=== PATIENT | male | born 1980 | race African-American/Black ===

== ENCOUNTER 2025-03-04 13:56 | Outpatient (AMB) | payer BC, SELFPAY ==
--- OUTSIDE RECORDS SUMMARY | 2025-03-04 14:08 | XMS_ITS | Clinical Summary ---
Author Organization [facility] Address [address] [place] [address] Care Team Providers Care Bottle Sorter Name Role Phone Lexus Sanders MD Primary Care Provider [phone] Allergies No known active allergies Medications Medication Sig Dispensed Refills Start Date End Date Status raNITIdine HCl (ZANTAC PO) Take by mouth. 0 Active Active Problems Problem Noted Date Diagnosed Date MGUS (monoclonal gammopathy of unknown significa nce) 03/30/2024 Elevated serum protein level 03/30/2024 Chronic hepatitis B 03/30/2024 Anemia in other chronic diseases classified else where 03/30/2024 Family History Medical History Relation Name Comments Cancer Sister Relation Name Status Comments Sister Social History Tobacco Use Types Packs/Day Years Used Date Smoking Tobacco: Never Smokeless Tobacco: Never Alcohol Use Standard Drinks/Week Comments Not Currently 0 (1 standard drink = 0.6 oz pur e alcohol) Sex and Gender Information Value Date Recorded Sex Assigned at Not on file Gender Identity Not on file Sexual Orientation Not on file Job Start Date Occupation Industry Not on file Not on file Not on file Last Filed Vital Signs Vital Sign Reading Time Taken Comments Blood Pressure 105/58 06/29/2024 3:23 PM EDT Pulse 69 06/29/2024 3:23 PM EDT Temperature 36.9 ??C (98.4 ??F) 06/29/2024 3:23 PM ED T Respiratory Rate - - Oxygen Saturation 98% 06/29/2024 3:23 PM EDT Inhaled Oxygen Concentration - - Weight 87.8 kg (193 lb 9.6 oz) 06/29/2024 3:23 P M EDT Height 182.9 cm (6') 06/29/2024 3:23 PM EDT Body Mass Index 26.26 06/29/2024 3:23 PM EDT Plan of Treatment Health Maintenance Due Date Last Done Comments Hepatitis C Screening 1982 Pneumococcal Vaccine (1 of 2 - PCV) 1988 Depression Screening 1994 BMI Counseling 2000 Preventative Health Evaluation 2000 COVID-19 Vaccine (3 - Pfizer risk series) 12/29/2020 12/01/2020, 11/10/2020 Influenza Vaccine (#1) 2024 3, 07/13/2022, 06/30/2020, Additional history exists DTap / Tdap / Td (3 - Td or Tdap) 09/23/2027 09/23/2017, 01/14/2008 Hepatitis B Vaccines Completed 03/30/2024, 03/30/2024, 07/13/2009, Additional history exists RSV Ped < 20 months Aged Out No longe r eligible based on patient's age to complete this topic Care Teams Bottle Sorter Relationship Specialty Start Date End Date Lexus Sanders MD PCP - General Internal Medicine 02/14/24
--- NOTE | 2025-03-04 14:40 | MHC.OFFVIS ---
Vital Signs 03/04/25 14:41 Height 6 ft Weight 185 lb BMI 25.1 Intake Visit Reasons: DIRECTOR PUBLIC-Bilateral Knee Pain Intake Note: Fetus Gregor Martinez is age 44 was seen today for a first time visit for Bi Lateral Knee appointment. Patient stated that the Knee injury occurred in Oct and was seen by his PCP DR. Sanders.Patient stated that both knee's are in constant pain but the right knee is his main concern due to the constant sharp pain.Patient was seen for PT but stated that he Failed due to the pain. Allergies No Known Allergies [No Known Allergies*] Allergy (Unverified 03/04/25 14:49) HPI HPI DIRECTOR PUBLIC-Bilateral Knee Pain: Details: Fetus Gregor Martinez is age 44 was seen today for a first time visit for Bi Lateral Knee appointment. Patient stated that the Knee injury occurred in Oct and was seen by his PCP DR. Sanders.Patient stated that both knee's are in constant pain but the right knee is his main concern due to the constant sharp pain.Patient was seen for PT but stated that he Failed due to the pain. He has also had injections and viscosupplementation. Reading his notes from his prior orthopedic surgeon he had a tight lateral retinaculum and lateral release was recommended. He is here today because he is not sure if that will help. On further discussion he does have persistent pain that prevents him from being as active as he would like. He states the pain worsens with squatting or with repetitive stairs. He states when he went to physical therapy was doing taping of his patella it it did help but felt that he could not continue that. He had an MRI but I do not have that available to me today. Physical Exam Vital Signs: BMI result Body Mass Index 25.1 Extrem Other: On exam he has a lateral patellar tilting bilaterally. There is tenderness to palpation of the undersurface of the lateral facet of the right knee there is a moderate right knee effusion. Positive step-down test. Lateral retinaculum nontender Results Reviewed Results Reviewed: I personally reviewed relevant radiographs. 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 He has done physical therapy and had injections and a lateral release has been recommended. I had a honest discussion with him regarding treatment options. I discussed that I think a lateral releases a 50 50 procedure. It is not wrong but it does not have a great track record of ameliorating symptoms. I think if the effusion were able to be managed that my help is symptoms and to do that I recommend taping, bracing PT. I told him I would review his MRI. When I have that I will set up a telehealth visit to review that and then we can make a plan from there if he so desires. Orders: Orders XR knee RT 3V 03/04/25 M25.561 - Pain in right knee Coding Level of Care Code New Pt Level 3 (24137) Diagnoses Lateral subluxation of patella S83.013A
[2025-03-04 14:41] VITALS: BMI 25.1
== END 2025-03-04 15:05 | disposition home or self-care (01) ==
LOC: HO.HOS 13:56
PROVIDERS: PCP Internal Medicine; Visit Provider Orthopaedic Surgery
DX: S83.011A Lateral subluxation of right patella, initial encounter (principal)
CPT/HCPCS: 99203

== ENCOUNTER 2025-03-04 13:56 | Outpatient (REF) | payer BC, SELFPAY ==
--- NOTE | ~2025-03-04 | XR_ITS ---
XR KNEE LUKAS 3V HISTORY: Pain in left knee. COMPARISON: None. TECHNIQUE: AP view bilateral knees standing, lateral and patellofemoral views each knee. FINDINGS: RIGHT KNEE: No fracture, dislocation, or suspicious bone lesion. Mild joint space narrowing/osteoarthrosis annual and lateral patellofemoral compartments. The lateral compartment is preserved. Normal patellar alignment. No abnormal patellar tilt. There is a moderate to large suprapatellar joint effusion. Soft tissues appear normal. LEFT KNEE: No fracture, dislocation, or suspicious bone lesion. Mild joint space narrowing/osteoarthrosis annual and lateral patellofemoral compartments. The lateral compartment is preserved. Normal patellar alignment. No abnormal patellar tilt. No evidence of joint effusion. Soft tissues appear normal. XR/XR Knee Lukas 3V IMPRESSION: RIGHT KNEE: 1. No acute bony abnormalities. 2. Mild osteoarthrosis in the medial and patellofemoral compartments. 3. Large suprapatellar joint effusion. LEFT KNEE: 1. No acute bony abnormalities. 2. Mild osteoarthrosis in the medial and patellofemoral compartments. 3. No significant suprapatellar joint effusion. Electronically signed by: Randy Montaño MD 03/05/2025 08:25 AM EDT
== END 2025-03-04 13:57 | disposition home or self-care (01) ==
LOC: HO.HOSX 13:56
PROVIDERS: PCP Internal Medicine; Visit Provider Orthopaedic Surgery
DX: M25.562 Pain in left knee (principal); S83.012A Lateral subluxation of left patella, initial encounter
CPT/HCPCS: 73562

== ENCOUNTER → 2025-03-04 14:17 | Outpatient (BNV) | payer BC, SELFPAY | PROVIDERS: PCP Internal Medicine; Visit Provider Radiology Diagnostic Radiology | DX: M25.461 Effusion, right knee (principal) | CPT/HCPCS: 73562 ==

== ENCOUNTER 2025-03-11 14:50 | Outpatient (AMB) | payer BC, SELFPAY ==
--- NOTE | 2025-03-11 14:51 | MHC.OFFVIS ---
Intake Visit Reasons: TEL- Bilateral knee arthritis, MRI Review Intake Note: Dayne is a 44 year old male who presents today for a Telehealth Bilateral Knee Arthritis, MRI Review. Best phone number is Allergies No Known Allergies [No Known Allergies*] Allergy (Unverified 03/04/25 14:49) HPI HPI TEL- Bilateral knee arthritis, MRI Review: Details: MRI report now scanned and reviewed. he also has a large complex posterolateral meniscal root tear with prominent patellar cartilage loss. Telehealth Telehealth Telehealth Platform: Telephone Location of provider rendering services: practice address Location of patient: address on file Patient Identification confirmed using: Name, : Yes Telehealth method: voice only Patient verbally consented to treatment: Yes Patient verbally consented to billing insurance company: Yes Patient informed of any privacy concerns related to visit: Yes Minutes spent on Phone/Video with Pt.: 10 Results Reviewed Results Reviewed: I personally reviewed the MR images. There is loss of PF cartialge and lateral posterior root tear Assessment & Plan Assessment & Plan (1) Lateral subluxation of patella: Code(s): S83.013A - Lateral subluxation of unspecified patella, initial encounter Category: Medical Plan: Recurrent/persistent knee effusion limiting quad strength and causing weakness/discomfort more than pain. This is a difficult problem and no clear or easy solution. This is really OA with degenerative meniscal tearing in setting of chronic lateral patellar tilt/subluxation. I recommend we dsicuss in person as I did not have access to the MRI at prior appt. (2) Lateral meniscal tear: Code(s): S83.289A - Other tear of lateral meniscus, current injury, unspecified knee, initial encounter Category: Medical Plan: Coding Level of Care Code Tele Est Pt Level 3 (34830) Diagnoses Lateral subluxation of patella S83.013A Lateral meniscal tear S83.289A
--- OUTSIDE RECORDS SUMMARY | 2025-03-11 17:31 | XMS_ITS | Clinical Summary ---
Author Organization [facility] Address [address] [place] [address] Care Team Providers Care Bleach Mixer Name Role Phone Lexus Sanders MD Primary Care Provider [phone] Allergies No known active allergies Medications Medication [...] risk series) 12/29/2020 12/01/2020, 11/10/2020 Influenza Vaccine (Season Ended) 2025 07/15/2023, 07/13/2022, 06/30/2020, Additional history exists DTap / Tdap / Td (3 - Td or Tdap) 09/23/2027 09/23/2017, 01/14/2008 Hepatitis B Vaccines Completed 03/30/2024, 03/30/2024, 07/13/2009, Additional history exists RSV Ped < 20 months Aged Out No longe r eligible based on patient's age to complete this topic Care Teams Bleach Mixer Relationship Specialty Start Date End Date Lexus Sanders MD PCP - General Internal Medicine 02/14/24
== END 2025-03-11 15:12 | disposition home or self-care (01) ==
LOC: HO.HOS 14:50
PROVIDERS: PCP Internal Medicine; Visit Provider Orthopaedic Surgery
DX: S83.013A Lateral subluxation of unspecified patella, initial encounter (principal); S83.289A Other tear of lateral meniscus, current injury, unspecified knee, initial encounter
CPT/HCPCS: 99213

== ENCOUNTER → 2025-03-11 14:50 | Outpatient (BNVA) | payer BC, SELFPAY | PROVIDERS: PCP Internal Medicine; Visit Provider Orthopaedic Surgery ==

== ENCOUNTER 2025-03-22 14:23 | Outpatient (AMB) | payer BC, SELFPAY ==
[2025-03-22 14:30] VITALS: BMI 25.1
--- NOTE | 2025-03-22 14:30 | MHC.OFFVIS ---
Vital Signs 03/22/25 14:30 Height 6 ft Weight 185 lb BMI 25.1 Intake Visit Reasons: OV- Bilateral knee arthritis Intake Note: Dayne is a 44 year old male who presents today for a follow up of his bilateral knees. OA with degenerative meniscal tearing in setting of chronic lateral patellar tilt/subluxation. Patient questioned if the right knee needs to be drained at this visit. Patient reports continued pain B/L Knee with occasional sharp pain. Allergies No Known Allergies (No Known Allergies*) Allergy (Unverified 03/22/25 14:34) HPI HPI OV- Bilateral knee arthritis: Details: Dayne is a 44 year old male who presents today for a follow up of his bilateral knees. OA with degenerative meniscal tearing in setting of chronic lateral patellar tilt/subluxation. Patient questioned if the right knee needs to be drained at this visit. Patient reports continued pain B/L Knee with occasional sharp pain. At last visit we discussed treatment options but I would not actually seen his MRI. He brings an MRI with him today. He has bilateral anterior knee pain right greater than left but his primary problem continues to be swelling and pain and fullness secondary to having his knee constantly swollen with fluid. Physical Exam Vital Signs: BMI result Body Mass Index 25.1 Extrem Other: Large suprapatellar effusion and large Verduzco cyst. Tenderness to palpation medial trochlea and lateral patellar facet. Mild bilateral lateral patellar tilting. Office Procedures Joint Inj/Aspir; Non-Pain Clin Joint Injection/Drain Details: I removed about 30mL normal looking fluid from the anterior aspect of the knee and about 35mL normal looking fluid from the posterior aspect of the knee Coding Procedure code (CPT) selection complete Results Reviewed Results Reviewed: I personally reviewed MRI Left Knee MRI: -Mild patellofemoral compartment degeneration. -probable low-grade injury of the posterior aspect of the lateral tibial plateau. -Small joint effusion -Findings probably representing a ruptured Bakers Cyst Right Knee MRI: -Multifocal tearing of the lateral meniscus, most posterior root -Prominent cartilage loss in the patellofemoral compartment -small joint effusion. Small Bkaers Cyst containing small loose bodies. Assessment & Plan Assessment & Plan (1) Lateral meniscal tear: Code(s): S83.289A - Other tear of lateral meniscus, current injury, unspecified knee, initial encounter Category: Medical Plan: This is a 44-year-old gentleman with bilateral knee pain. His right is worse than in his left has multiple conditions all of which are resulting in a painful swollen knee. The MRI I reviewed also shows a complex tear of the posterolateral meniscus near the meniscal root. I recommend knee arthroscopy. Is swelling and pain have been persistent for greater than 6 months and his knee has been injected and drained and the swelling returns every time. He is active and healthy and this is making daily activities difficult. I explained the risks, benefits and alternatives to him including, but not limited to, the risk of persistent pain, persistent swelling, persistent effusion as well as medical complications associated with surgery. He expressed understanding. (2) Chondromalacia patellae of right knee: Code(s): M22.41 - Chondromalacia patellae, right knee Category: Medical Plan: There is significant chondral loss in the patellofemoral joint. This is likely the cause of his persistent large effusion. I will address this during surgery with chondroplasty and examination if there is any other treatment options in the future. I discussed the a lateral release may be of benefit but that is a intraoperative decision. (3) Knee effusion, right: Code(s): M25.461 - Effusion, right knee Category: Medical Plan: I aspirated both the suprapatellar pouch and the Verduzco's cyst obtaining 70-80 mL of normal-appearing joint fluid. Plan I aspirated the anterior (30mL fluid removed) and posterior (35mL fluid removed) aspects of the right knee. I will have him meet with one of our surgical schedulers to book a Right Knee Arthroscopy Coding Level of Care Code Est Pt Level 4 (77280) Diagnoses Lateral meniscal tear S83.289A Chondromalacia patellae of right knee M22.41 Knee effusion, right M25.461
--- OUTSIDE RECORDS SUMMARY | 2025-03-22 16:06 | XMS_ITS | Clinical Summary ---
Author Organization [facility] Address [address] [place] [address] Care Team Providers Care Machine Cage Maker Name Role Phone Lexus Sanders MD Primary Care Provider [phone] Allergies No known active allergies Medications Medication [...] age to complete this topic Care Teams Machine Cage Maker Relationship Specialty Start Date End Date Lexus Sanders MD PCP - General Internal Medicine 02/14/24
== END 2025-03-22 15:18 | disposition home or self-care (01) ==
LOC: HO.HOS 14:24
PROVIDERS: PCP Internal Medicine; Visit Provider Orthopaedic Surgery
DX: S83.289A Other tear of lateral meniscus, current injury, unspecified knee, initial encounter (principal); M22.41 Chondromalacia patellae, right knee; M25.461 Effusion, right knee
CPT/HCPCS: 20610; 99214

== ENCOUNTER → 2025-03-22 14:23 | Outpatient (BNVA) | payer BC, SELFPAY | PROVIDERS: PCP Internal Medicine; Visit Provider Orthopaedic Surgery | DX: M22.41 Chondromalacia patellae, right knee (principal); M25.461 Effusion, right knee | CPT/HCPCS: 20610 ==

== ENCOUNTER 2025-04-22 13:57 | Outpatient (AMB) | payer BC, SELFPAY ==
--- NOTE | 2025-04-22 14:06 | MHC.OFFVIS ---
Vital Signs 04/22/25 14:12 Height 6 ft Weight 185 lb BMI 25.1 BP 108/70 Blood Pressure Location Rt brachial Position Sitting Pulse 64 Pulse Source Pulse Oximeter Pulse Oximetry (%) 98 Oxygen Delivery Method Room Air Intake Visit Reasons: Pre Op - right knee 04/28/25 NE Intake Note: This is a 44 year old male who presents for a right knee with NE on 04/28/25. Powerhouse Electrician Apprentice Required: No Allergies No Known Allergies (No Known Allergies*) Allergy (Unverified 04/22/25 14:08) Medication List - Last Reconciled 04/22/25 by Radha Baker RN cetirizine (Zyrtec) 10 mg PO DAILY PRN HPI HPI Pre Op - right knee 04/28/25 NE: Details: Mr. Bundy this is a 44-year-old male who presents to the office today for his history and physical examination pending right knee arthroscopy with Dr. Perez tentatively scheduled for 04/28/2025. Patient has no pertinent past medical history. He does not take any medications and has no known drug allergies. Review of Systems Const All systems reviewed & are unremarkable except as noted in HPI and below Physical Exam Vital Signs: Last Vital Signs Pulse 64 04/22/25 14:12 BP 108/70 04/22/25 14:12 Pulse Ox 98 04/22/25 14:12 Oxygen Delivery Method Room Air 04/22/25 14:12 BMI result Body Mass Index 25.1 Extrem Other: Right: Moderate effusion. Verduzco cyst. Tenderness to palpation medial trochlea and lateral patellar facet. Mild bilateral lateral patellar tilting. Assessment & Plan Assessment & Plan (1) Lateral meniscal tear: Code(s): S83.289A - Other tear of lateral meniscus, current injury, unspecified knee, initial encounter Category: Medical (2) Chondromalacia patellae of right knee: Code(s): M22.41 - Chondromalacia patellae, right knee Category: Medical (3) Knee effusion, right: Code(s): M25.461 - Effusion, right knee Category: Medical Plan I discussed in detail the procedure and what to expect pre and post operatively. We discussed the risks, benefits and alternatives to the surgery as well as the rehabilitation course. The risks; which include, but are not limited to infection, bleeding, nerve injury, ongoing pain, swelling, and stiffness, perioperative risk of injury to bones and soft tissues, and blood clots. I?ve answered all questions and with their understanding they have consented to move forward with right knee arthroscopy with Dr. Perez. Coding Level of Care Code Global (89130) Diagnoses Lateral meniscal tear S83.289A Chondromalacia patellae of right knee M22.41 Knee effusion, right M25.461
[2025-04-22 14:12] VITALS: BP 108/70; PULSE 64; O2SAT 98; BMI 25.1
--- OUTSIDE RECORDS SUMMARY | 2025-04-22 14:43 | XMS_ITS | Clinical Summary ---
Author Organization [facility] Address [address] [place] [address] Phone Care Team Providers Care Human Resources Technician Name Role Phone Lexus Sanders MD Primary Care Provider [phone] Allergies Active Allergy Reactions Criticality Noted Date Comments Apple 07/17/2024 nausea Banana 07/17/2024 nausea Spencer 07/17/2024 nausea Medications meloxicam (MOBIC) 15 mg tablet TAKE 1 TABLET BY MOUTH DAILY. 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 Hepatitis A 09/15/2012 Esophagitis 05/20/2009 PPD positive 01/16/2008 Overview (03/25/2025): Patient with no pulmonary symptoms. Normal chest Xray Treated BCG Resolved Problems Problem Noted Date Diagnosed Date Resolved Date Anemia in other chronic dise ases classified elsewhere 03/30/2024 03/25/2025 Encounters Date Type Department Care Team Description 03/31/2025 3:45 PM EDT Office Visit [facility] Hematology Oncology [address] [place] [phone] Ryland Tovar MD MGUS (monoclonal gammopathy of unknown significance) (Primary Dx); IgG lambda monoclonal gammopathy; Chronic hepatitis B ([facility] V24, [facility] V28) 03/29/2025 Telephone Orthopedic Surgery [facility] [address] [facility] [address] [place] [phone] Lina Gilbert MA Surgery 02/03/2025 3:00 PM EDT Office Visit [facility] [address] [facility] [address] [place] [phone] James Fry MD Arthritis of right knee (Primary Dx) 02/01/2025 Telephone [facility] [address] [facility] [address] [place] [phone] James Fry MD Right Knee Pain from Last 3 Months Immunizations Name Administration Dates Next Due Hepatitis B (Pqdwvby-G-Zcfxj , Recombivax HB-Adult) 19yo and older 07/13/2009,02/11/2008,01/14/2008 IPV Inactivated polio (Ipol) 6wks and older 03/23/2005 Influenza Quadravalent, MDCK , 0.5ml, preservative free (Flucelvax) 6mo and older 07/15/2023,07/13/2022,06/30/2020,11/05 Influenza Quadravalent, MDCK , 0.5ml, with preservative (Flucelvax) 6mo and older 09/23/2017 Influenza trivalent, 0.5mL, preservative free (Fluarix; FluLaval; Fluzone) ages 6mo and older (Afluria) 3 years and older 07/17/2024 Meningococcal Polysaccharide 03/13/2005 Tdap Tetanus diptheria acell ular pertussis (Boostrix; Adacel) 7yo and older 09/23/2017,01/14/2008 Surgical History Surgery Date Site/Laterality Comments ESOPHAGOGASTRODUODENOSCOPY 02/14/2009 Nl esophagus-bx:Nl, Mild antral gastritis-bx:mild reactive gastropathy, Nl duodenum COLONOSCOPY 08/20/2002 : negative; no polyps COLONOSCOPY 07/28/2020 hemorrhoids, no polyp OTHER SURGICAL HISTORY lipoma removal UPPER GASTROINTESTINAL ENDOSCOPY HERNIA REPAIR Medical History Medical History Date Comments Hepatitis B DX:Hepatitis B Esophagitis 05/20/2009 Hepatitis A 09/15/2012 GERD (gastroesophageal reflux disease) Anemia MGUS (monoclonal gammopathy of unknown significa nce) 03/30/2024 Family History Medical History Relation Name Comments Hypertension Father stroke Dementia Maternal Grandmother Diabetes Mother Colon cancer Sister 1 Other: brain tumor Sister 2 32 Relation Name Status Comments Brother Alive Father Maternal Grandfather Maternal Grandmother Mother Alive Paternal Grandfather Paternal Grandmother Sister 1 Sister 2 Social History Tobacco Use Types Packs/Day Years Used Date Smoking Tobacco: Never Smokeless Tobacco: Never Alcohol Use Standard Drinks/Week Comments No 0 (1 standard drink = 0.6 oz pur e alcohol) Sex and Gender Information Value Date Recorded Sex Assigned at Male 10/15/2024 12:26 PM EST Legal Sex Male 8:56 AM EST Gender Identity Male 10/15/2024 12:26 PM EST Sexual Orientation Straight 10/15/2024 12 :26 PM EST Obstetrics History Last Filed Vital Signs Vital Sign Reading Time Taken Comments Blood Pressure 118/61 03/31/2025 3:50 PM EDT Pulse 71 03/31/2025 3:50 PM EDT Temperature 37.1 C (98.7 F) 03/31/2025 3:50 PM EDT Respiratory Rate 18 10/22/2024 1:05 PM EST Oxygen Saturation 99% 03/31/2025 3:50 PM EDT Inhaled Oxygen Concentration - - Weight 86.8 kg (191 lb 6.4 oz) 03/31/2025 3:50 P M EDT Height 182.9 cm (6') 03/31/2025 3:50 PM EDT Body Mass Index 25.96 03/31/2025 3:50 PM EDT Plan of Treatment Upcoming Encounters Date Type Department Care Team (Late st Contact Info) Description 07/08/2025 4:00 PM EDT Office Visit Adult Medicine [address] [place] [phone] Elizabeth Carter PA [address] [place] [address] 10/13/2025 3:30 PM EST Office Visit [facility] Hematology Oncology [address] [place] [phone] Ryland Dominguez MD [address] [place] [phone] Health Maintenance Due Date Last Done Comments Hepatitis A Vaccines (1 of 2 - Risk 2-dose series) 2001 Pneumococcal Vaccine: Pediatrics (0 to 5 Years) and At-Risk Patients (6 to 49 Years) (1 of 2 - PCV) 2001 IPV Vaccines (2 of 3 - Adult catch-up series) 04/20/2005 03/23/2005 Colorectal Cancer Screening: Colonoscopy 09/09/2022 Depression Screening 09/09/2022 HIV Screening 09/09/2022 Hepatitis C Screening 09/09/2022 Social Influencers of Health Screening 09/09/2022 COVID-19 Vaccine ( season) 2024 09/12/2021, 12/01/2020, 11/10/2020 Influenza Vaccine (#1) 2025 , 07/15/2023, 07/13/2022, Additional history exists DTaP,Tdap,and Td Vaccines (3 - Td or Tdap) 09/23/2027 09/23/2017, 01/14/2008 Cholesterol Screening (Lipid Panel) 08/04/2029 08/04/2024 Meningococcal ACWY Vaccine Aged Out 03/13/2005 N o longer eligible based on patient's age to complete this topic Hepatitis B Vaccines Completed 07/13/2009, 02/11/2008, 01/14/2008 HIB Vaccines Aged Out No longer eligi ble based on patient's age to complete this topic HPV Vaccines Aged Out No longer eligi ble based on patient's age to complete this topic MMR Vaccines Aged Out No longer eligi ble based on patient's age to complete this topic Meningococcal B Vaccine Aged Out No l onger eligible based on patient's age to complete this topic RSV Immunization Patients Under 20 months Aged Out No longer eligible based on patient's age to complete this topic Varicella Vaccines Aged Out No longer eligible based on patient's age to complete this topic Procedures Procedure Name Priority Date/Time Associated Diagnosis Comments WI PROTEIN ELECTROPHORETIC FRACTIONATION & QUANTITATION SERUM Routine 03/23/2025 3:06 PM EDT MGUS (monoclonal gammopathy of unknown significance) WI IMMUNOFIXATION ELECTROPHORESIS SERUM Routine 03/23/2025 3:06 PM EDT MGUS (monoclonal gammopathy of unknown significance) IMMUNOGLOBULINS IGG, IGA, IGM Routine 03/23/2025 3:06 PM EDT MGUS (monoclonal gammopathy of unknown significance) IMMUNOFIXATION ELECTROPHORESIS Routine 03/23/2025 3:06 PM EDT MGUS (monoclonal gammopathy of unknown significance) IMMUNOFIXATION ELECTROPHORESIS Routine 03/23/2025 3:06 PM EDT MGUS (monoclonal gammopathy of unknown significance) PROTEIN, TOTAL Routine 03/23/2025 3:06 PM EDT MGUS (monoclonal gammopathy of unknown significance) CBC WITH AUTO DIFFERENTIAL Routine 03/23/2025 3:06 PM EDT MGUS (monoclonal gammopathy of unknown significance) KAPPA-LAMBDA QUANTITATIVE FREE LIGHT CHAINS Routine 03/23/2025 3:06 PM EDT MGUS (monoclonal gammopathy of unknown significance) CBC AND DIFFERENTIAL Routine 03/23/2025 3:06 PM EDT MGUS (monoclonal gammopathy of unknown significance) COMPREHENSIVE METABOLIC PANEL Routine 03/23/2025 3:06 PM EDT MGUS (monoclonal gammopathy of unknown significance) LACTATE DEHYDROGENASE Routine 03/23/2025 3:06 PM EDT MGUS (monoclonal gammopathy of unknown significance) PROTEIN ELECTROPHORESIS, SERUM Routine 03/23/2025 3:06 PM EDT MGUS (monoclonal gammopathy of unknown significance) WI ARTHROCENTESIS/ASPIRATI ON/INJECTION MAJOR JOINT/BURSA W/O U/S GUIDANCE Routine 02/03/2025 3:00 PM EDT Arthritis of right knee from Last 3 Months Results * Pathologist Review Immunofixation (03/23/2025 3:06 PM EDT) Pathologist Interpretation Reviewed by Kandi Abel MD 03/24/2025 3:11 PM EDT [facility] Blood Venous blood specimen / Unknown Venipuncture / Unknown 03/23/2025 3:06 PM EDT 03/23/2025 4:39 PM EDT us Ryland Dominguez MD LAB BLOOD ORDERABLE S Final Result Performing Organization Address [facility]/ZIP Co de Phone Number [facility] [address] [place] [address], [place] [phone] * PATHOLOGIST REVIEW PROTEIN ELECTROPHORESIS (03/23/2025 3:06 PM EDT) Pathologist Interpretation Reviewed by Kandi Abel MD 03/24/2025 4:55 PM EDT [facility] Blood Venous blood specimen / Unknown Venipuncture / Unknown 03/23/2025 3:06 PM EDT 03/23/2025 4:39 PM EDT us Ryland Dominguez MD LAB BLOOD ORDERABLE S Final Result [facility] [address] [place] [address], [place] [phone] * (ABNORMAL) [place]-lambda free light chains, quantitative (03/23/2025 3:06 PM EDT) [facility] [place] Free Light Chain 0.82 0.33 - 1.94 mg/dL 03/26/2025 12:46 PM EDT [facility] Lambda Free Light Chain 15.64(H) 0.57 - 2.63 mg/dL 03/26/2025 12:46 PM EDT [facility] [place]/Lambda FLC Ratio 0.05(L) 0.26 - 1.65 03/26/2025 12:46 PM EDT [facility] Comment: Test performed at [facility], [address], [place] [address] Melissa Toledo MD, PhD - [employer]pped [employer] Oven Attendant Blood Venous blood specimen / Unknown Venipuncture / Unknown 03/23/2025 3:06 PM EDT 03/23/2025 4:39 PM EDT Subramony Angelica GOULD LAB BLOOD ORDERABLE S Final Result [facility] [address] [place] [address] * (ABNORMAL) CBC auto differential (03/23/2025 3:06 PM EDT) [facility] WBC 6.3 4.8 - 10.8 K/mcL LAB HEMETOLOGY METHOD 03/23/2025 4:46 PM EDT [facility] RBC 4.50 4.50 - 5.50 M/mcL LAB HEMETOLOGY METHOD 03/23/2025 4:46 PM EDT [facility] Hemoglobin 14.7 13.5 - 17.5 g/dL LAB HEMETOLOGY METHOD 03/23/2025 4:46 PM EDT [facility] Hematocrit 43.5 42.0 - 54.0 % LAB HEMETOLOGY METHOD 03/23/2025 4:46 PM EDT [facility] MCV 97.3 79.0 - 98.0 FL LAB HEMETOLOGY METHOD 03/23/2025 4:46 PM EDT [facility] MCH 32.9(H) 27.0 - 32.0 pcg LAB HEMETOLOGY METHOD 03/23/2025 4:[facility] MCHC 33.8 32.0 - 37.0 g/dL LAB HEMETOLOGY METHOD 03/23/2025 4:46 PM [facility] RDW 14.4 11.0 - 15.0 % LAB HEMETOLOGY METHOD 03/23/2025 4:46 PM T [facility] Platelets 485(H) 130 - 400 K/mcL LAB HEMETOLOGY METHOD 03/23/2025 4:46 PM [facility] MPV 11.2(H) 7.0 - 11.0 FL LAB HEMETOLOGY METHOD 03/23/2025 4:46 PM [facility] NRBC 0.0 <1.0 % LAB HEMETOLOGY METHOD 03/23/2025 4:46 PM [facility] NRBC Absolute 0.00 <0.10 K/mcL LAB HEMETOLOGY METHOD 03/23/2025 4:46 PM [facility] Neutrophils Relative 57.8 % LAB HEMETOLOGY METHOD 03/23/2025 4:46 PM [facility] Lymphocytes Relative 30.6 % LAB HEMETOLOGY METHOD 03/23/2025 4:46 PM [facility] Monocytes Relative 8.9 % LAB HEMETOLOGY METHOD 03/23/2025 4:46 PM [facility] Eosinophils Relative 1.9 % LAB HEMETOLOGY METHOD 03/23/2025 4:46 PM [facility] Basophils Relative 0.5 % LAB HEMETOLOGY METHOD 03/23/2025 4:46 PM [facility] Immature Granulocytes Relative 0.3 % LAB HEMETOLOGY METHOD 03/23/2025 4:46 PM EDT [facility] Neutrophils Absolute 3.65 1.50 - 7.00 K/[facility] LAB HEMETOLOGY METHOD 03/23/2025 4:46 PM EDT [facility] Lymphocytes Absolute 1.93 1.00 - 5.00 K/mcL LAB HEMETOLOGY METHOD 03/23/2025 4:46 PM EDT [facility] Monocytes Absolute 0.56 0.20 - 1.00 K/mcL LAB HEMETOLOGY METHOD 03/23/2025 4:46 PM EDT [facility] Eosinophils Absolute 0.12 0.00 - 0.50 K/[facility] LAB HEMETOLOGY METHOD 03/23/2025 4:46 PM EDT [facility] Basophils Absolute 0.03 0.00 - 0.20 K/mcL LAB HEMETOLOGY METHOD 03/23/2025 4:46 PM EDT [facility] Immature Granulocytes Absolute 0.02 0.00 - 0.03 K/mcL LAB HEMETOLOGY METHOD 03/23/2025 4:46 PM EDT [facility] Blood Venous blood specimen / Unknown Venipuncture / Unknown 03/23/2025 3:06 PM EDT 03/23/2025 4:39 PM EDT us Subramony Angelica GOULD LAB BLOOD ORDERABLE S Final Result [facility] [address] [place] [address], * Immunofixation electrophoresis serum (03/23/2025 3:06 PM EDT) Immunofixation Result, Serum IgG Lambda monoclonal immunoglobulins detected. LAB CHEMISTRY METHOD 03/24/2025 3:11 PM EDT [facility] Blood Venous blood specimen / Unknown Venipuncture / Unknown 03/23/2025 3:06 PM EDT 03/23/2025 4:39 PM EDT us Ryland Dominguez MD LAB BLOOD ORDERABLE S Final Result Performing Organization Address [facility]/ZIP Co de Phone Number [facility] [address] [place] [address], [place] [phone] * (ABNORMAL) Immunoglobulins IgG, IgA, IgM (03/23/2025 3:06 PM EDT) Total IgG 3,370(H) 549 - 1,584 mg/dL LAB CHEMISTRY METHOD 03/24/2025 12:28 PM EDT [facility] IgA 32(L) 61 - 348 mg/dL LAB CHEMISTRY METHOD 03/24/2025 12:28 PM EDT [facility] IgM 40 23 - 259 mg/dL LAB CHEMISTRY METHOD 03/24/2025 12:28 PM EDT [facility] Blood Venous blood specimen / Unknown Venipuncture / Unknown 03/23/2025 3:06 PM EDT 03/23/2025 4:39 PM EDT us Ryland Dominguez MD LAB BLOOD ORDERABLE S Final Result Performing Organization Address [facility]/ZIP Co de Phone Number [facility] [address] [place] [address], [place] [phone] * (ABNORMAL) Protein electrophoresis, serum (03/23/2025 3:06 PM EDT) Total Protein 8.7(H) 6.0 - 8.0 g/dL LAB CHEMISTRY METHOD 03/24/2025 4:55 PM EDT [facility] Albumin, Serum 4.0 2.9 - 4.1 g/dL LAB CHEMISTRY METHOD 03/24/2025 4:55 PM EDT [facility] Alpha 1 Globulin (g/dL) 0.2 0.1 - 0.5 g/dL LAB CHEMISTRY METHOD 03/24/2025 4:55 PM EDT [facility] Alpha 2 Globulin (g/dL) 0.8 0.7 - 1.5 g/dL LAB CHEMISTRY METHOD 03/24/2025 4:55 PM EDT [facility] Beta (g/dL) 0.8 0.7 - 1.5 g/dL LAB CHEMISTRY METHOD 03/24/2025 4:55 PM EDT [facility] Gamma Globulin (g/dL) 2.9(H) 0.7 - 1.9 g/dL LAB CHEMISTRY METHOD 03/24/2025 4:55 PM EDT [facility] PARAPROTEIN 1.7 g/dL LAB CHEMISTRY METHOD 03/24/2025 4:55 PM EDT [facility] SPEP Interpretation Monoclonal gammopathy Abnormal pattern with M-spike of gamma globulin mobility. Serum Immunofixation performed on this specimen demonstrated IgG Lambda monoclonal protein. LAB CHEMISTRY METHOD 03/24/2025 4:55 PM EDT [facility] Blood Venous blood specimen / Unknown Venipuncture / Unknown 03/23/2025 3:06 PM EDT 03/23/2025 4:39 PM EDT us Subramaddie Dominguez MD LAB BLOOD ORDERABLE S Final Result [facility] [address] [place] [address], * (ABNORMAL) Protein, total (03/23/2025 3:06 PM EDT) Total Protein 8.7(H) 6.0 - 8.0 g/dL LAB CHEMISTRY METHOD 03/23/2025 4:58 PM EDT [facility] Blood Venous blood specimen / Unknown Venipuncture / Unknown 03/23/2025 3:06 PM EDT 03/23/2025 4:39 PM EDT us Ryland Dominguez MD LAB BLOOD ORDERABLE S Final Result Performing Organization Address City/[facility]/ZIP Co de Phone Number [facility] [address] [place] [address], [place] [phone] * Lactate dehydrogenase (03/23/2025 3:06 PM EDT) [facility] LDH 197 120 - 246 unit/L LAB CHEMISTRY METHOD 03/23/2025 5:06 PM EDT [facility] Blood Venous blood specimen / Unknown Venipuncture / Unknown 03/23/2025 3:06 PM EDT 03/23/2025 4:39 PM EDT us Ryland Dominguez MD LAB BLOOD ORDERABLE S Final Result Performing Organization Address City/[facility]/ZIP Co de Phone Number [facility] [address] [place] [address], [place] [phone] * (ABNORMAL) Comprehensive metabolic panel (03/23/2025 3:06 PM EDT) [facility] Sodium 136 133 - 145 mmol/L LAB CHEMISTRY METHOD 03/23/2025 5:18 PM EDT [facility] Potassium 4.1 3.5 - 5.5 mmol/L LAB CHEMISTRY METHOD 03/23/2025 5:18 PM EDT [facility] Chloride 102 96 - 110 mmol/L LAB CHEMISTRY METHOD 03/23/2025 5:18 PM EDT [facility] CO2 29 21 - 32 mmol/L LAB CHEMISTRY METHOD 03/23/2025 5:18 PM EDT [facility] Anion Gap 5 3 - 11 LAB CHEMISTRY METHOD 03/23/2025 5:18 PM EDT [facility] Glucose 83 70 - 100 mg/dL LAB CHEMISTRY METHOD 03/23/2025 5:18 PM [facility] BUN 8 5 - 25 mg/dL LAB CHEMISTRY METHOD 03/23/2025 5:18 PM [facility] Creatinine 1.00 0.70 - 1.30 mg/dL LAB CHEMISTRY METHOD 03/23/2025 5:18 PM [facility] eGFR 96 >=60 mL/min/1. 73m2 LAB CHEMISTRY METHOD 03/23/2025 5:18 PM [facility] Comment:Calculation based on the Chronic Kidney Disease Epidemiology Collaboration (CKD-EPI) equation refit without adjustment for race. BUN/Creatinine Ratio 8.0 LAB CHEMISTRY METHOD 03/23/2025 5:18 PM [facility] Calcium 9.2 8.5 - 10.5 mg/dL LAB CHEMISTRY METHOD 03/23/2025 5:18 PM [facility] AST (SGOT) 35 10 - 42 unit/L LAB CHEMISTRY METHOD 03/23/2025 5:18 PM [facility] ALT (SGPT) 61(H) 10 - 60 unit/L LAB CHEMISTRY METHOD 03/23/2025 5:18 PM [facility] Alkaline Phosphatase 64 42 - 121 unit/L LAB CHEMISTRY METHOD 03/23/2025 5:18 PM [facility] Total Protein 8.7(H) 6.0 - 8.0 g/dL LAB CHEMISTRY METHOD 03/23/2025 5:18 PM [facility] Albumin 3.7 3.2 - 5.0 g/dL LAB CHEMISTRY METHOD 03/23/2025 5:18 PM [facility] Total Bilirubin 0.7 0.0 - 1.4 mg/dL LAB CHEMISTRY METHOD 03/23/2025 5:18 PM [facility] Blood Venous blood specimen / Unknown Venipuncture / Unknown 03/23/2025 3:06 PM EDT 03/23/2025 4:39 PM EDT Ryland Dominguez MD LAB BLOOD ORDERABLE S Final Result [facility] ([facility]) [facility] [address] [place] [address], [place] [phone] * [place] ARTHROCENTESIS/ASPIRATION/INJECTION MAJOR JOINT/BURSA W/O U/S GUIDANCE (02/03/2025 3:00 PM EDT) Narrative James Fry MD - 02/03/2025 3:00 PM EDT James Fry MD 02/03/2025 3:23 PM L Inj/Asp: R knee Indications: pain Details: 21 G needle, anterolateral approach Medications: 3 mL lidocaine 1 % Informed Consent: Laterality: Right Relevant images/test results available and reviewed: yes Health status cleared: Yes Procedure/treatment, purpose, treatment alternatives, risks/potential complications and benefits explained: yes Patient questions answered: yes Patient agrees, verbalizes understanding, and wants to proceed: yes Consent given by: Patient Informed consent discussion completed by Physician/TONI with patient: Verbal Pre-procedure timeout performed: yes James Fry MD IN CLINIC/BEDSIDE ORDERABLES F inal Result from Last 3 Months Insurance [facility] Care Teams Human Resources Technician Relationship Specialty Start Date End Date Lexus Sanders MD [address] [place] [phone] (work) [facility] - General 02/05/01
--- OUTSIDE RECORDS SUMMARY | 2025-04-22 14:43 | XMS_ITS | Clinical Summary ---
Author Organization [facility] Address [address] [place] [address] Care Team Providers Care Learning Support Aide Name Role Phone Lexus Sanders MD Primary Care Provider [phone] Allergies No known active allergies Medications Medication [...] 69 06/29/2024 3:23 PM EDT Temperature 36.9 C (98.4 F) 06/29/2024 3:23 PM EDT Respiratory Rate - - Oxygen Saturation 98% [...] series) 12/29/2020 12/01/2020, 11/10/2020 Influenza Vaccine (#1) 2025 , 07/13/2022, 06/30/2020, Additional history exists DTap / Tdap / Td (3 - Td or Tdap) 09/23/2027 09/23/2017, 01/14/2008 Hepatitis B Vaccines Completed 03/30/2024, 03/30/2024, 07/13/2009, Additional history exists RSV Ped < 20 months Aged Out No longe r eligible based on patient's age to complete this topic Care Teams Learning Support Aide Relationship Specialty Start Date End Date Lexus Sanders MD PCP - General Internal Medicine 02/14/24
== END 2025-04-22 14:25 | disposition home or self-care (01) ==
LOC: HO.HOS 13:57
PROVIDERS: PCP Internal Medicine; Visit Provider Physician Assistant
DX: S83.289A Other tear of lateral meniscus, current injury, unspecified knee, initial encounter (principal); M22.41 Chondromalacia patellae, right knee; M25.461 Effusion, right knee
CPT/HCPCS: 99024

== ENCOUNTER 2025-04-28 08:44 | Day surgery (SDC) | payer BC, SELFPAY ==
[2025-04-26 11:43] VITALS: BMI 25.1
--- OUTSIDE RECORDS SUMMARY | 2025-04-26 15:29 | XMS_ITS | Clinical Summary ---
Author Organization [facility] Address [address] [place] [address] Care Team Providers Care Deckhand [employer]onge [employer] Name Role Phone Lexus Sanders MD Primary Care Provider [phone] Allergies No known active allergies Medications Medication [...] age to complete this topic Care Teams De[employer]hand [employer] Relationship Specialty Start Date End Date Lexus Sanders MD PCP - General Internal Medicine 02/14/24
--- OUTSIDE RECORDS SUMMARY | 2025-04-26 15:29 | XMS_ITS | Clinical Summary ---
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); IgG lambda monoclonal gammopathy; Chronic hepatitis B ([facility] V24, [facility] V28) 03/29/2025 Telephone Orthopedic Surgery [facility] [address] [facility] [address] [place] [phone] Lina Gilbert MA Surgery 02/03/2025 3:00 PM EDT Office Visit Orthopedic [facility] [address] [facility] [address] [place] [phone] James Fry MD Arthritis of right knee (Primary Dx) 02/01/2025 Telephone Orthopedic [facility] [address] [facility] [address] [place] [phone] James Fry MD Right Knee Pain from Last 3 Months Immunizations Name Administration Dates Next Due Hepatitis B ([id number] , Recombivax HB-Adult) 19yo and older 07/13/2009,02/11/2008,01/14/2008 [...] 4:00 PM EDT Office Visit Adult Medicine [address] [place] [phone] Elizabeth Carter PA [address] [place] [address] 10/13/2025 3:30 PM EST Office Visit [facility] [address] [place] [address] Ryland Dominguez MD [address] [place] [address] Health Maintenance Due Date Last Done Comments Hepatitis A Vaccines (1 of 2 - Risk 2-dose series) 2001 Pneumococcal Vaccine: Pediatrics (0 to 5 Years) and At-Risk Patients (6 to 49 Years) (1 of 2 - PCV) 2001 IPV Vaccines (2 of 3 - Adult catch-up series) 04/20/2005 03/23/2005 Colorectal Cancer Screening: Colonoscopy 09/09/2022 HIV Screening 09/09/2022 Hepatitis C Screening 09/09/2022 Social Influencers of Health Screening 09/09/2022 COVID-19 Vaccine ( season) 2024 09/12/2021, 12/01/2020, 11/10/2020 Depression Screening 10/07/2024 Influenza Vaccine (#1) 2025 , 07/15/2023, 07/13/2022, [...] Procedure Name Priority Date/Time Associated Diagnosis Comments AR PROTEIN ELECTROPHORETIC FRACTIONATION & QUANTITATION SERUM Routine 03/23/2025 3:06 PM EDT MGUS (monoclonal gammopathy of unknown significance) AR IMMUNOFIXATION ELECTROPHORESIS SERUM Routine 03/23/2025 3:06 PM [...] EDT MGUS (monoclonal gammopathy of unknown significance) AR ARTHROCENTESIS/ASPIRATI ON/INJECTION MAJOR JOINT/BURSA W/O U/S GUIDANCE Routine 02/03/2025 3:00 PM EDT Arthritis of right knee from Last 3 Months Results * Pathologist Review Immunofixation (03/23/2025 3:06 PM EDT) Pathologist Interpretation Reviewed by Kandi Abel MD 03/24/2025 3:11 PM EDT [facility] Blood Venous blood specimen / Unknown Venipuncture / Unknown 03/23/2025 3:06 PM EDT 03/23/2025 4:39 PM EDT us Ryland Dominguez MD LAB BLOOD ORDERABLE S Final Result Performing Organization Address [facility]/ZIP Co de Phone Number [facility] [address] [place] [address], [place] [phone] * PATHOLOGIST REVIEW PROTEIN ELECTROPHORESIS (03/23/2025 3:06 PM EDT) Pathologist Interpretation Reviewed by Kandi Abel MD 03/24/2025 4:55 PM EDT [facility] Blood Venous blood specimen / Unknown Venipuncture / Unknown 03/23/2025 3:06 PM EDT 03/23/2025 4:39 PM EDT us Ryland Dominguez MD LAB BLOOD ORDERABLE S Final Result [facility] [address] [place] [address], [place] [phone] * (ABNORMAL) Rehob[place]-lambda free light chains, quantitative (03/23/2025 3:06 PM EDT) [facility] [place]ob[place] Free Light Chain 0.82 0.33 - 1.94 mg/dL 03/26/2025 12:46 PM EDT [facility] Lambda Free Light Chain 15.64(H) 0.57 - 2.63 mg/dL 03/26/2025 12:46 PM EDT [facility] [place]/Lambda FLC Ratio 0.05(L) 0.26 - 1.65 03/26/2025 12:46 PM EDT [facility] Comment: Test performed at [facility], [address], [place] [address] Melissa Toledo MD, PhD - [employer] Blood Venous blood specimen / Unknown Venipuncture / Unknown 03/23/2025 3:06 PM EDT 03/23/2025 4:39 PM EDT Subramony Angelica GOULD LAB BLOOD ORDERABLE S Final Result [facility] [address] [place] [address] * (ABNORMAL) CBC auto differential (03/23/2025 3:06 PM EDT) [facility] WBC 6.3 4.8 - 10.8 K/mcL LAB HEMETOLOGY METHOD 03/23/2025 4:46 PM EDT [facility] RBC 4.50 4.50 - 5.50 M/mcL LAB HEMETOLOGY METHOD 03/23/2025 4:46 PM EDT [facility] Hemoglobin 14.7 13.5 - 17.5 g/dL LAB HEMETOLOGY METHOD 03/23/2025 4:46 PM EDT [facility] Hematocrit 43.5 42.0 - 54.0 % LAB HEMETOLOGY METHOD 03/23/2025 4:46 PM EDT [facility] MCV 97.3 79.0 - 98.0 FL LAB HEMETOLOGY METHOD 03/23/2025 4:46 PM EDT [facility] MCH 32.9(H) 27.0 - 32.0 pcg LAB HEMETOLOGY METHOD 03/23[facility]25 [facility] MCHC 33.8 32.0 - 37.0 g/dL LAB HEMETOLOGY METHOD 03/23[facility]2025 [facility] RDW 14.4 11.0 - 15.0 % LAB HEMETOLOGY METHOD 03/23/2025 4:46 PM T [facility] Platelets 485(H) 130 - 400 K/mcL LAB HEMETOLOGY METHOD 03/23/2025 4:46 PM [facility] MPV 11.2(H) 7.0 - 11.0 FL LAB HEMETOLOGY METHOD 03/23/2025 4:[facility] NRBC 0.0 <1.0 % LAB HEMETOLOGY METHOD 03/23/2025 4:46 PM [facility] NRBC Absolute 0.00 <0.10 K/mcL LAB HEMETOLOGY METHOD 03/23/2025 4:46 PM [facility] Neutrophils Relative 57.8 % LAB HEMETOLOGY METHOD 03/23/2025 4:46 PM [facility] Lymphocytes Relative 30.6 % LAB HEMETOLOGY METHOD 03/23/2025 4:46 PM [facility] Monocytes Relative 8.9 % LAB HEMETOLOGY METHOD 03/23/2025 4:[facility] Eosinophils Relative 1.9 % LAB HEMETOLOGY METHOD 03/23/2025 4:46 PM [facility] Basophils Relative 0.5 % LAB HEMETOLOGY METHOD 03/23/2025 4:46 PM [facility] Immature Granulocytes Relative 0.3 % LAB HEMETOLOGY METHOD 03/23/2025 4:46 PM EDT [facility] Neutrophils Absolute 3.65 1.50 - 7.00 K/[facility] HEMETOLOGY METHOD 03/23/2025 4:46 PM EDT [facility] Lymphocytes Absolute 1.93 1.00 - 5.00 K/mcL LAB HEMETOLOGY METHOD 03/23/2025 4:46 PM EDT [facility] Monocytes Absolute 0.56 0.20 - 1.00 K/mcL LAB HEMETOLOGY METHOD 03/23/2025 4:46 PM EDT [facility] Eosinophils Absolute 0.12 0.00 - 0.50 K/[facility] HEMETOLOGY METHOD 03/23/2025 4:46 PM EDT [facility] Basophils Absolute 0.03 0.00 - 0.20 K/mcL LAB HEMETOLOGY METHOD 03/23/2025 4:46 PM EDT [facility] Immature Granulocytes Absolute 0.02 0.00 - 0.03 K/mcL LAB HEMETOLOGY METHOD 03/23/2025 4:46 PM EDT [facility] Blood Venous blood specimen / Unknown Venipuncture / Unknown 03/23/2025 3:06 PM EDT 03/23/2025 4:39 PM EDT us Subramony Angelica GOULD LAB BLOOD ORDERABLE S Final Result [facility] [address] [place] [address], * Immunofixation electrophoresis serum (03/23/2025 3:06 PM EDT) Immunofixation Result, Serum IgG Lambda monoclonal immunoglobulins detected. LAB CHEMISTRY METHOD 03/24/2025 3:11 PM EDT [facility] Blood Venous blood specimen / Unknown Venipuncture / Unknown 03/23/2025 3:06 PM EDT 03/23/2025 4:39 PM EDT us Ryland Dominguez MD LAB BLOOD ORDERABLE S Final Result Performing Organization Address [facility]/ZIP Co de Phone Number [facility] [address] [place] [address], [place] [phone] * (ABNORMAL) Immunoglobulins IgG, IgA, IgM (03/23/2025 3:06 PM EDT) Total IgG 3,370(H) 549 - 1,584 mg/dL LAB CHEMISTRY METHOD 03/24/2025 12:28 PM EDT [facility] IgA 32(L) 61 - 348 mg/dL LAB CHEMISTRY METHOD 03/24/2025 12:28 PM EDT [facility] IgM 40 23 - 259 mg/dL LAB CHEMISTRY METHOD 03/24/2025 12:28 PM EDT [facility] Blood Venous blood specimen / Unknown Venipuncture / Unknown 03/23/2025 3:06 PM EDT 03/23/2025 4:39 PM EDT us Ryland Dominguez MD LAB BLOOD ORDERABLE S Final Result Performing Organization Address [facility]/ZIP Co de Phone Number [facility] [address] [place] [address], [place] [phone] * (ABNORMAL) Protein electrophoresis, serum (03/23/2025 3:06 PM EDT) Total Protein 8.7(H) 6.0 - 8.0 g/dL LAB CHEMISTRY METHOD 03/24/2025 4:55 PM EDT [facility] Albumin, Serum 4.0 2.9 - 4.1 g/dL LAB CHEMISTRY METHOD 03/24/2025 4:55 PM EDT [facility] Alpha 1 Globulin (g/dL) 0.2 0.1 - 0.5 g/dL LAB CHEMISTRY METHOD 03/24/2025 4:55 PM EDT [facility] Alpha 2 Globulin (g/dL) 0.8 0.7 - 1.5 g/dL LAB CHEMISTRY METHOD 03/24/2025 4:55 PM EDT [facility] Beta (g/dL) 0.8 0.7 - 1.5 g/dL LAB CHEMISTRY METHOD 03/24/2025 4:55 PM EDT [facility] Gamma Globulin (g/dL) 2.9(H) 0.7 - 1.9 g/dL LAB CHEMISTRY METHOD 03/24/2025 4:55 PM EDT [facility] PARAPROTEIN 1.7 g/dL LAB CHEMISTRY METHOD 03/24/2025 4:55 PM EDT [facility] SPEP Interpretation Monoclonal gammopathy Abnormal pattern with M-spike of gamma globulin mobility. Serum Immunofixation performed on this specimen demonstrated IgG Lambda monoclonal protein. LAB CHEMISTRY METHOD 03/24/2025 4:55 PM EDT [facility] Blood Venous blood specimen / Unknown Venipuncture / Unknown 03/23/2025 3:06 PM EDT 03/23/2025 4:39 PM EDT us Subramaddie Dominguez MD LAB BLOOD ORDERABLE S Final Result [facility] [address] [place] [address], * (ABNORMAL) Protein, total (03/23/2025 3:06 PM EDT) Total Protein 8.7(H) 6.0 - 8.0 g/dL LAB CHEMISTRY METHOD 03/23/2025 4:58 PM EDT [facility] Blood Venous blood specimen / Unknown Venipuncture / Unknown 03/23/2025 3:06 PM EDT 03/23/2025 4:39 PM EDT us Ryland Dominguez MD LAB BLOOD ORDERABLE S Final Result Performing Organization Address [facility]/ZIP Co de Phone Number [facility] [address] [place] [address], [place] [phone] * Lactate dehydrogenase (03/23/2025 3:06 PM EDT) [facility] LDH 197 120 - 246 unit/L LAB CHEMISTRY METHOD 03/23/2025 5:06 PM EDT [facility] Blood Venous blood specimen / Unknown Venipuncture / Unknown 03/23/2025 3:06 PM EDT 03/23/2025 4:39 PM EDT us Ryland Dominguez MD LAB BLOOD ORDERABLE S Final Result Performing Organization Address [facility]/ZIP Co de Phone Number [facility] [address] [place] [address], [place] [phone] * (ABNORMAL) Comprehensive metabolic panel (03/23/2025 3:06 PM EDT) [facility] Sodium 136 133 - 145 mmol/L LAB CHEMISTRY METHOD 03/23/2025 5:18 PM EDT [facility] Potassium 4.1 3.5 - 5.5 mmol/L LAB CHEMISTRY METHOD 03/23/2025 5:18 PM EDT [facility] Chloride 102 96 - 110 mmol/L LAB CHEMISTRY METHOD 03/23/2025 5:18 PM EDT [facility] CO2 29 21 - 32 mmol/L LAB CHEMISTRY METHOD 03/23/2025 5:18 PM EDT [facility] Anion Gap 5 3 - 11 LAB CHEMISTRY METHOD 03/23/2025 5:18 PM EDT [facility] Glucose 83 70 - 100 mg/dL LAB CHEMISTRY METHOD 03/23/2025 5:18 PM [facility] BUN 8 5 - 25 mg/dL LAB CHEMISTRY METHOD 03/23/2025 5:18 PM [facility] Creatinine 1.00 0.70 - 1.30 mg/dL LAB CHEMISTRY METHOD 03/23/2025 5:18 PM [facility] eGFR 96 >=60 mL/min/1. 73m2 LAB CHEMISTRY METHOD 03/23/2025 5:18 PM [facility] Comment:Calculation based on the Chronic Kidney Disease Epidemiology Collaboration (CKD-EPI) equation refit without adjustment for race. BUN/Creatinine Ratio 8.0 LAB CHEMISTRY METHOD 03/23/2025 5:18 PM [facility] Calcium 9.2 8.5 - 10.5 mg/dL LAB CHEMISTRY METHOD 03/23/2025 5:18 PM [facility] AST (SGOT) 35 10 - 42 unit/L LAB CHEMISTRY METHOD 03/23/2025 5:18 PM [facility] ALT (SGPT) 61(H) 10 - 60 unit/L LAB CHEMISTRY METHOD 03/23/2025 5:18 PM [facility] Alkaline Phosphatase 64 42 - 121 unit/L LAB CHEMISTRY METHOD 03/23/2025 5:18 PM [facility] Total Protein 8.7(H) 6.0 - 8.0 g/dL LAB CHEMISTRY METHOD 03/23/2025 5:18 PM [facility] Albumin 3.7 3.2 - 5.0 g/dL LAB CHEMISTRY METHOD 03/23/2025 5:18 PM [facility] Total Bilirubin 0.7 0.0 - 1.4 mg/dL LAB CHEMISTRY METHOD 03/23/2025 5:18 PM [facility] Blood Venous blood specimen / Unknown Venipuncture / Unknown 03/23/2025 3:06 PM EDT 03/23/2025 4:39 PM EDT Ryland Dominguez MD LAB BLOOD ORDERABLE S Final Result [facility] ([facility]) [facility] [address] [place] [address], [place] [phone] * AR ARTHROCENTESIS/ASPIRATION/INJECTION MAJOR JOINT/BURSA W/O U/S GUIDANCE (02/03/2025 [...] inal Result from Last 3 Months Insurance [facility] Care Teams Media Liaison Officer Relationship Specialty Start Date End Date Lexus Sanders MD [address] [place] [phone] (work) [facility] - General 02/05/01
[2025-04-28] VITALS (10 sets, daily range): BP systolic 91–131; BP diastolic 45–85; PULSE 53–66; RESP 11–18; TEMP 36.2–36.4; O2SAT 96–100; BMI 25.4
--- NOTE | 2025-04-28 08:57 | P.CONAN_ITS ---
PMF Active Problems Active Problems: All Active Problems Knee effusion, right (Acute) Chondromalacia patellae of right knee (Acute) Lateral meniscal tear (Acute) Lateral subluxation of patella (Acute) Surgical History Surgical History Hx of hernia repair History of esophagogastroduodenoscopy (EGD) H/O colonoscopy History of Problems with Anesthesia: No Social History Social History Patient Tobacco Use Status: Never used Tobacco Meds Allergies Allergy/AdvReac Type Severity Reaction Status Date / Time No Known Allergies (No Known Allergy Unverified 04/22/25 14:08 Allergies*) Home Medications ?Medication ?Instructions ?Recorded ?Confirmed ?Last Taken ?Type cetirizine 10 mg capsule (Zyrtec) 10 mg PO DAILY PRN 0 04/22/25 04/22/25 Unknown History Exam Height,Weight and Vital Signs: Height 6 ft Weight 83.915 kg Airway Mallampati Class: II TM Dist: >3cm Neck ROM: Full Loose/Missing/Broken Teeth: No Heart: RRR Lungs: CTA Assessment and Plan Assessment Anesthesia Assessment: Anesthesia Plan Discussed and Chart Reviewed Final Anesthetic Review History of Problems with Anesthesia: No ASA Class: I Final Preanesthetic Review: Meds/Allgs Chart Reviewed, Consent Obtained/Reviewed and Anes Risks/Benef Reviewed Patient Risk: Low Procedure Risk: Low Anesthetic Plan Anesthetic Plan: GA Disposition: Standard PACU
--- NOTE | 2025-04-28 09:13 | MHC.SHP ---
Pre-Procedural Eval Section A - 24 Hr Update-Section A only Date of Service: 04/28/25 The patient is an INPATIENT: No Changes since office visit: No Cold of Flu in the past 2 weeks, No New Medical Problems, No Changes in Medication and No Patient answered all questions The patient has been examined within 24 hours of the surgical procedure. The History & Physical has been completed within 30 days and I have reviewed it.: Yes Section B - Complete if H&P > 30 days Chief Complaint: Other tear of lateral meniscus, current injury, un Allergies: Allergies Allergy/AdvReac Type Severity Reaction Status Date / Time No Known Allergies (No Known Allergy Unverified 04/22/25 14:08 Allergies*) Plan I have reviewed the history and physical and performed a pertinent physical examination on my patient. No changes have occurred unless specified. Time Spent With Patient Time: Total time managing care of this patient today ____ minutes.
[2025-04-28] MEDS: Lactated Ringers 1,000 ML 80 ML IVCONT (09:26)
[2025-04-28] MEDS: oxyCODONE HCl Immed Release 5 MG TABLET PO (12:51)
--- NOTE | 2025-04-28 12:51 | PM.OP ---
Brief Operative Note Date of Service: 04/28/25 Pre-op diagnosis: Right knee effusion and lateral meniscus tear Post-op diagnosis: other (right knee OA) Procedure: right knee partial lateral meniscectomy with chondroplasty and lateral release Implants: none Surgeon: Maco Perez MD Anesthesia: GETA and local Was an Publications Distribution Clerk used for this Procedure?: No Estimated blood loss (mL): 5 Tourniquet time (min): 30 IV fluids (mL): 800 Pathology: none sent Condition: stable Disposition: PACU
--- NOTE | 2025-04-30 11:02 | P.OP_ITS ---
Operative Note Operative Note Date of Service: 04/28/25 Narrative: Date of Service: 04/28/25 Pre-op diagnosis: Right knee effusion and lateral meniscus tear Post-op diagnosis: other (right knee OA) Procedure: right knee partial lateral meniscectomy with chondroplasty and lateral release Implants: none Surgeon: Maco Perez MD Anesthesia: GETA and local Was an Appointment Specialist used for this Procedure?: No Estimated blood loss (mL): 5 Tourniquet time (min): 30 IV fluids (mL): 800 Pathology: none sent Condition: stable Disposition: PACU Indications: This is a 44-year-old with recurrent swelling of his right knee that was significant and clinically intrusive with quad atrophy and discomfort. Injections and physical therapy have been unhelpful and he was consented to undergo knee arthroscopy. Procedure in detail: Patient was brought to the operating room placed supine on the arthroscopic table and prepped and draped in standard sterile fashion. A time-out was called to identify proper site proper procedure proper surgeon and IV antibiotics per weight were administered. I began by exsanguinating the limb and insufflating tourniquet to 300 mm Hg. Then made a standard anterolateral stab incision. The knee was insufflated with water and 30 degree arthroscope was placed. There was synovitis in the superior pouch and a large grade 4 lesion of the central portion of the trochlea and both condyles. The edges were stable. The gutters were notable for small cartilaginous fragments. I descended in the medial compartment me by medial portal under direct visualization. At this point it was evident that he had a large full-thickness chondral defect involving 80% of the weight-bearing portion of the medial femoral condyle. The intact portion was anterior and probably the 0-30 degrees of extension resulted in a normal tibiofemoral articulation. A shaver was used to debride unstable portions of the meniscus around the edges but this was largely stable lesion with little that could be done to modify it. The medial compartment was surprisingly normal with a normal meniscus and normal cartilage surfaces other than the anterior portion of the medial femoral condyle and trochlea which were abnormal. I re- injured the lateral compartment and there was also a degenerative meniscus tear. This was not repairable and involve mostly the posterior body and horn. The root was intact although diminutive. I removed the unstable flaps and loose portions of the meniscus down to stable edges. Of note there was a central portion of the tibial plateau which was eburnated as well. This comprised approximately 75% of the articular surface. Photographs were taken and I descended back into the patellofemoral compartment. There was a very tight lateral retinaculum and the lateral facet of the patella was notable for grade 2 chondromalacia and lateral patellar tilting. Given this and given his difficulty with stairs pain over the lateral patellofemoral joint I elected to do a limited lateral release. Arthroscopic Chip was used to release the lateral capsule beginning at the level of the middle of the patella and extending proximally. This did result in some increased space between the lateral patellofemoral articular surfaces. In addition to this I debrided the synovium of the suprapatellar pouch. This point the tourniquet was let down. There was no brisk bleeding in the small bleeders that were identified were cauterized. All instrumentation was then removed and the portals were closed with nylon. Patient was then placed in sterile dressing extubated brought recovery room stable condition. There were no known complications.
== END 2025-04-28 13:21 | disposition home or self-care (01) ==
LOC: HO.SSS 08:45
PROVIDERS: PCP Internal Medicine; Visit Provider Orthopaedic Surgery
PROC: (CPT 29870; principal; 2025-04-28 11:40)
DX: S83.289A Other tear of lateral meniscus, current injury, unspecified knee, initial encounter (principal); M17.11 Unilateral primary osteoarthritis, right knee; M22.41 Chondromalacia patellae, right knee; M25.461 Effusion, right knee; M23.351 Other meniscus derangements, posterior horn of lateral meniscus, right knee; M65.861 Other synovitis and tenosynovitis, right lower leg; X58.XXXA Exposure to other specified factors, initial encounter; Y93.9 Activity, unspecified; Y92.9 Unspecified place or not applicable; Y99.9 Unspecified external cause status; Z79.899 Other long term (current) drug therapy; Z98.890 Other specified postprocedural states
CPT/HCPCS: 29881; 29873; J0165; J0690; J1100; J2003; J2250; J2405; J2704; J2795; J3010

== ENCOUNTER → 2025-04-28 08:44 | Outpatient (BNV) | payer BC, SELFPAY | PROVIDERS: PCP Internal Medicine; Visit Provider Orthopaedic Surgery | DX: S83.281A Other tear of lateral meniscus, current injury, right knee, initial encounter (principal); M94.261 Chondromalacia, right knee; M25.461 Effusion, right knee | CPT/HCPCS: 29881 ==

== ENCOUNTER 2025-04-30 10:47 | Outpatient (AMB) | payer BC, SELFPAY ==
--- NOTE | 2025-04-30 10:53 | A.OFFVIS_ITS ---
Intake Visit Reasons: PO-R knee DOS 04/28/25 for wound check Intake Note: Dayne is a 44 year old female who presents today for a wound check s/p right knee arthroscopy 04/28/25 NE. Patient reports is having a lot of pain in his knee. He notices swelling in his knee and he is not able to walk. patient is wanting something stronger for medication. Allergies No Known Allergies (No Known Allergies*) Allergy (Verified 04/30/25 11:09) HPI HPI PO-R knee DOS 04/28/25 for wound check: Details: Mr. Bundy who is a 44-year-old male who presents to the office today 1 day status post right knee partial lateral meniscectomy with chondroplasty and lateral release performed by Dr. Perez. Patient reports that he is in a significant amount of pain in his unable to weightbear. He called the on-call service yesterday and was advised to come into the office today. PFSH Surgical History Hx of hernia repair History of esophagogastroduodenoscopy (EGD) H/O colonoscopy Social History Comment: counts correct Patient Tobacco Use Status: Never used Tobacco Review of Systems Const All systems reviewed & are unremarkable except as noted in HPI and below Physical Exam Const General: cooperative, healthy appearing and no acute distress Resp Effort & Inspection: normal respiratory effort and able to speak in complete sentences Extrem Other: Right knee incision sites are clean dry and intact. Sutures intact. Moderate effusion. Able to demonstrate slight flexion and extension. NVI. Assessment & Plan Assessment & Plan (1) Lateral meniscal tear: Code(s): S83.289A - Other tear of lateral meniscus, current injury, unspecified knee, initial encounter Category: Medical (2) Knee effusion, right: Code(s): M25.461 - Effusion, right knee Category: Medical Plan Mr. Bundy who is a 44-year-old male who presents to the office today 1 day status post right knee partial lateral meniscectomy with chondroplasty and lateral release performed by Dr. Perez. Patient reports that he is in a s ignificant amount of pain in his unable to weightbear. He called the on-call service yesterday and was advised to come into the office today. While in the office today, the surgical procedure was discussed with the patient's. I have encouraged to continue gentle range of motion, crutch use and ice. Additionally, I increased his pain medication to oxycodone-acetaminophen 5-325 mg 1 tablet p.o. Q 4 6 H PRN pain #42. This was sent to his pharmacy as requested. He will follow up at his normally scheduled follow up appointment on 05/04/2025 at 02:45 with me, sooner if needed. Medications: New oxycodone-acetaminophen 5-325 mg Partial Fill upon patient request. 1 tab PO Q4-6H PRN 42 tabs 0RF pain 7 days Coding Level of Care Code Global (09588) Diagnoses Lateral meniscal tear S83.289A Knee effusion, right M25.461
--- OUTSIDE RECORDS SUMMARY | 2025-04-30 10:55 | XMS_ITS | Clinical Summary ---
Author Organization [facility] Address [address] [place] [address] Care Team Providers Care Plant Operations Manager Name Role Phone Lexus Sanders MD Primary Care Provider [phone] Allergies No known active allergies Medications Medication [...] age to complete this topic Care Teams Plant Operations Manager Relationship Specialty Start Date End Date Lexus Sanders MD PCP - General Internal Medicine 02/14/24
--- OUTSIDE RECORDS SUMMARY | 2025-04-30 10:56 | XMS_ITS | Clinical Summary ---
Author Organization 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); IgG lambda monoclonal gammopathy; Chronic hepatitis B ([facility] V24, [facility] V28) 03/29/2025 Telephone Orthopedic Surgery [facility] [address] [facility] [address] [place] [phone] Lina Gilbert MA Surgery 02/03/2025 3:00 PM EDT Office Visit Orthopedic [facility] [address] [facility] [address] [place] [phone] James Fry MD Arthritis of right knee (Primary Dx) 02/01/2025 Telephone Orthopedic [facility] [address] [facility] [address] [place] [phone] James Fry MD Right Knee Pain from Last 3 Months Immunizations Name Administration Dates Next Due Hepatitis B (Mhqljab-C-Wmhep , Recombivax HB-Adult) 19yo and older 07/13/2009,02/11/2008,01/14/2008 [...] PM EDT Office Visit Adult Medicine [address] [place] [phone] Elizabeth Carter PA [address] [place] [address] 10/13/2025 3:30 PM EST Office Visit [facility] Hematology Oncology [address] [place] [phone] Ryland Dominguez MD [address] [place] [phone] Health Maintenance Due Date Last [...] Procedure Name Priority Date/Time Associated Diagnosis Comments [place] PROTEIN ELECTROPHORETIC FRACTIONATION & QUANTITATION SERUM Routine 03/23/2025 3:06 PM EDT MGUS (monoclonal gammopathy of unknown significance) TX IMMUNOFIXATION ELECTROPHORESIS SERUM Routine 03/23/2025 3:06 PM [...] EDT MGUS (monoclonal gammopathy of unknown significance) TX ARTHROCENTESIS/ASPIRATI ON/INJECTION MAJOR JOINT/BURSA W/O U/S GUIDANCE Routine 02/03/2025 3:00 PM EDT Arthritis of right knee from Last 3 Months Results * Pathologist Review Immunofixation (03/23/2025 3:06 PM EDT) Pathologist Interpretation Reviewed by Kandi Abel MD 03/24/2025 3:[address] [facility] Blood Venous blood specimen / Unknown Venipuncture / Unknown 03/23/2025 3:06 PM EDT 03/23/2025 4:39 PM EDT us Ryland Dominguez MD LAB BLOOD ORDERABLE S Final Result Performing Organization Address [facility]/ZIP Co de Phone Number [facility] [address] [place] [address], [place] [phone] * PATHOLOGIST REVIEW PROTEIN ELECTROPHORESIS (03/23/2025 3:06 PM EDT) Pathologist Interpretation Reviewed by Kandi Abel MD 03/24/2025 4:[address] [facility] Blood Venous blood specimen / Unknown Venipuncture / Unknown 03/23/2025 3:06 PM EDT 03/23/2025 4:39 PM EDT us Ryland Dominguez MD LAB BLOOD ORDERABLE S Final Result [facility] [address] [place] [address], [place] [phone] * (ABNORMAL) [place]-lambda free light chains, quantitative (03/23/2025 3:06 PM EDT) [facility] [place] Free Light Chain 0.82 0.33 - 1.94 mg/dL 03/26/2025 12:46 PM EDT [facility] Lambda Free Light Chain 15.64(H) 0.57 - 2.63 mg/dL 03/26/2025 12:46 PM EDT [facility] [place]/Lambda FLC Ratio 0.05(L) 0.26 - 1.65 03/26/2025 12:46 PM EDT [facility] Comment: Test performed at [facility], [address], [place] [address] Melissa Toleod MD, PhD - Administrative Support Specialist Blood Venous blood specimen / Unknown Venipuncture / Unknown 03/23/2025 3:06 PM EDT 03/23/2025 4:39 PM EDT Subramony Angelica GOULD LAB BLOOD ORDERABLE S Final Result [facility] [address] [place] [address] * (ABNORMAL) CBC auto differential (03/23/2025 3:06 PM EDT) [facility] WBC 6.3 4.8 - 10.8 K/mcL LAB HEMETOLOGY METHOD 03/23/2025 4:[address] [facility] RBC 4.50 4.50 - 5.50 M/mcL LAB HEMETOLOGY METHOD 03/23/2025 4:[address] [facility] Hemoglobin 14.7 13.5 - 17.5 g/dL LAB HEMETOLOGY METHOD 03/23/2025 4:[address] [facility] Hematocrit 43.5 42.0 - 54.0 % LAB HEMETOLOGY METHOD 03/23/2025 4:[address] [facility] MCV 97.3 79.0 - 98.0 FL LAB HEMETOLOGY METHOD 03/23/2025 4:[address] [facility] MCH 32.9(H) 27.0 - 32.0 pcg LAB HEMETOLOGY METHOD 03/23/2025 4:[facility] MCHC 33.8 32.0 - 37.0 g/dL LAB HEMETOLOGY METHOD 03/23/2025 4:[facility] RDW 14.4 11.0 - 15.0 % LAB HEMETOLOGY METHOD 03/23/2025 4:[address] [facility] Platelets 485(H) 130 - 400 K/mcL LAB HEMETOLOGY METHOD 03/23/2025 4:46 PM [facility] MPV 11.2(H) 7.0 - 11.0 FL LAB HEMETOLOGY METHOD 03/23/2025 4:[facility] NRBC 0.0 <1.0 % LAB HEMETOLOGY METHOD 03/23/2025 4:46 PM [facility] NRBC Absolute 0.00 <0.10 K/mcL LAB HEMETOLOGY METHOD 03/23/2025 4:46 PM [facility] Neutrophils Relative 57.8 % LAB HEMETOLOGY METHOD 03/23/2025 4:46 PM [facility] Lymphocytes Relative 30.6 % LAB HEMETOLOGY METHOD 03/23/2025 4:46 PM [facility] Monocytes Relative 8.9 % LAB HEMETOLOGY METHOD 03/23/2025 4:[facility] Eosinophils Relative 1.9 % LAB HEMETOLOGY METHOD 03/23/2025 4:46 PM [facility] Basophils Relative 0.5 % LAB HEMETOLOGY METHOD 03/23/2025 4:46 PM [facility] Immature Granulocytes Relative 0.3 % LAB HEMETOLOGY METHOD 03/23/2025 4:[address] [facility] Neutrophils Absolute 3.65 1.50 - 7.00 K/[facility] HEMETOLOGY METHOD 03/23/2025 4:[address] [facility] Lymphocytes Absolute 1.93 1.00 - 5.00 K/mcL LAB HEMETOLOGY METHOD 03/23/2025 4:[address] [facility] Monocytes Absolute 0.56 0.20 - 1.00 K/mcL LAB HEMETOLOGY METHOD 03/23/2025 4:[address] [facility] Eosinophils Absolute 0.12 0.00 - 0.50 K/[facility] HEMETOLOGY METHOD 03/23/2025 4:[address] [facility] Basophils Absolute 0.03 0.00 - 0.20 K/mcL LAB HEMETOLOGY METHOD 03/23/2025 4:[address] [facility] Immature Granulocytes Absolute 0.02 0.00 - 0.03 K/mcL LAB HEMETOLOGY METHOD 03/23/2025 4:[address] [facility] Blood Venous blood specimen / Unknown Venipuncture / Unknown 03/23/2025 3:06 PM EDT 03/23/2025 4:39 PM EDT us Subramony Angelica GOULD LAB BLOOD ORDERABLE S Final Result [facility] [address] [place] [address], * Immunofixation electrophoresis serum (03/23/2025 3:06 PM EDT) Immunofixation Result, Serum IgG Lambda monoclonal immunoglobulins detected. LAB CHEMISTRY METHOD 03/24/2025 3:[address] [facility] Blood Venous blood specimen / Unknown Venipuncture / Unknown 03/23/2025 3:06 PM EDT 03/23/2025 4:39 PM EDT us Ryland Dominguez MD LAB BLOOD ORDERABLE S Final Result Performing Organization Address [facility]/ZIP Co de Phone Number [facility] [address] [place] [address], [place] [phone] * (ABNORMAL) Immunoglobulins IgG, IgA, IgM (03/23/2025 3:06 PM EDT) Total IgG 3,370(H) 549 - 1,584 mg/dL LAB CHEMISTRY METHOD 03/24/2025 12:[address] [facility] IgA 32(L) 61 - 348 mg/dL LAB CHEMISTRY METHOD 03/24/2025 12:[address] [facility] IgM 40 23 - 259 mg/dL LAB CHEMISTRY METHOD 03/24/2025 12:[address] [facility] Blood Venous blood specimen / Unknown Venipuncture / Unknown 03/23/2025 3:06 PM EDT 03/23/2025 4:39 PM EDT us Ryland Dominguez MD LAB BLOOD ORDERABLE S Final Result Performing Organization Address [facility]/ZIP Co de Phone Number [facility] [address] [place] [address], [place] [phone] * (ABNORMAL) Protein electrophoresis, serum (03/23/2025 3:06 PM EDT) Total Protein 8.7(H) 6.0 - 8.0 g/dL LAB CHEMISTRY METHOD 03/24/2025 4:[address] [facility] Albumin, Serum 4.0 2.9 - 4.1 g/dL LAB CHEMISTRY METHOD 03/24/2025 4:[address] [facility] Alpha 1 Globulin (g/dL) 0.2 0.1 - 0.5 g/dL LAB CHEMISTRY METHOD 03/24/2025 4:[address] [facility] Alpha 2 Globulin (g/dL) 0.8 0.7 - 1.5 g/dL LAB CHEMISTRY METHOD 03/24/2025 4:[address] [facility] Beta (g/dL) 0.8 0.7 - 1.5 g/dL LAB CHEMISTRY METHOD 03/24/2025 4:[address] [facility] Gamma Globulin (g/dL) 2.9(H) 0.7 - 1.9 g/dL LAB CHEMISTRY METHOD 03/24/2025 4:[address] [facility] PARAPROTEIN 1.7 g/dL LAB CHEMISTRY METHOD 03/24/2025 4:[address] [facility] SPEP Interpretation Monoclonal gammopathy Abnormal pattern with M-spike of gamma globulin mobility. Serum Immunofixation performed on this specimen demonstrated IgG Lambda monoclonal protein. LAB CHEMISTRY METHOD 03/24/2025 4:[address] [facility] Blood Venous blood specimen / Unknown Venipuncture / Unknown 03/23/2025 3:06 PM EDT 03/23/2025 4:39 PM EDT us Subramaddie Dominguez MD LAB BLOOD ORDERABLE S Final Result [facility] [address] [place] [address], * (ABNORMAL) Protein, total (03/23/2025 3:06 PM EDT) Total Protein 8.7(H) 6.0 - 8.0 g/dL LAB CHEMISTRY METHOD 03/23/2025 4:[address] [facility] Blood Venous blood specimen / Unknown Venipuncture / Unknown 03/23/2025 3:06 PM EDT 03/23/2025 4:39 PM EDT us Ryland Dominguez MD LAB BLOOD ORDERABLE S Final Result Performing Organization Address City/[facility]/ZIP Co de Phone Number [facility] [address] [place] [address], [place] [phone] * Lactate dehydrogenase (03/23/2025 3:06 PM EDT) [facility] LDH 197 120 - 246 unit/L LAB CHEMISTRY METHOD 03/23/2025 5:[address] [facility] Blood Venous blood specimen / Unknown Venipuncture / Unknown 03/23/2025 3:06 PM EDT 03/23/2025 4:39 PM EDT us Ryland Dominguez MD LAB BLOOD ORDERABLE S Final Result Performing Organization Address [facility]/ZIP Co de Phone Number [facility] [address] [place] [address], [place] [phone] * (ABNORMAL) Comprehensive metabolic panel (03/23/2025 3:06 PM EDT) [facility] Sodium 136 133 - 145 mmol/L LAB CHEMISTRY METHOD 03/23/2025 5:[address] [facility] Potassium 4.1 3.5 - 5.5 mmol/L LAB CHEMISTRY METHOD 03/23/2025 5:[address] [facility] Chloride 102 96 - 110 mmol/L LAB CHEMISTRY METHOD 03/23/2025 5:[address] [facility] CO2 29 21 - 32 mmol/L LAB CHEMISTRY METHOD 03/23/2025 5:[address] [facility] Anion Gap 5 3 - 11 LAB CHEMISTRY METHOD 03/23/2025 5:[address] [facility] Glucose 83 70 - 100 mg/dL LAB CHEMISTRY METHOD 03/23/2025 5:18 PM [facility] BUN 8 5 - 25 mg/dL LAB CHEMISTRY METHOD 03/23/2025 5:18 PM [facility] Creatinine 1.00 0.70 - 1.30 mg/dL LAB CHEMISTRY METHOD 03/23/2025 5:18 PM [facility] eGFR 96 >=60 mL/min/1. 73m2 LAB CHEMISTRY METHOD 03/23/2025 5:18 PM [facility] Comment:Calculation based on the Chronic Kidney Disease Epidemiology Collaboration (CKD-EPI) equation refit without adjustment for race. BUN/Creatinine Ratio 8.0 LAB CHEMISTRY METHOD 03/23/2025 5:18 PM [facility] Calcium 9.2 8.5 - 10.5 mg/dL LAB CHEMISTRY METHOD 03/23/2025 5:18 PM [facility] AST (SGOT) 35 10 - 42 unit/L LAB CHEMISTRY METHOD 03/23/2025 5:18 PM [facility] ALT (SGPT) 61(H) 10 - 60 unit/L LAB CHEMISTRY METHOD 03/23/2025 5:18 PM [facility] Alkaline Phosphatase 64 42 - 121 unit/L LAB CHEMISTRY METHOD 03/23/2025 5:18 PM [facility] Total Protein 8.7(H) 6.0 - 8.0 g/dL LAB CHEMISTRY METHOD 03/23/2025 5:18 PM [facility] Albumin 3.7 3.2 - 5.0 g/dL LAB CHEMISTRY METHOD 03/23/2025 5:18 PM [facility] Total Bilirubin 0.7 0.0 - 1.4 mg/dL LAB CHEMISTRY METHOD 03/23/2025 5:18 PM [facility] Blood Venous blood specimen / Unknown Venipuncture / Unknown 03/23/2025 3:06 PM EDT 03/23/2025 4:39 PM EDT Ryland Dominguez MD LAB BLOOD ORDERABLE S Final Result [facility] ([facility]) [facility] [address] [place] [address], [place] [phone] * [place] ARTHROCENTESIS/ASPIRATION/INJECTION MAJOR JOINT/BURSA W/O U/S GUIDANCE (02/03/2025 [...] inal Result from Last 3 Months Insurance [facility] Care Teams Network Solutions Architect Relationship Specialty Start Date End Date Lexus Sanders MD [address] [place] [phone] (work) [facility] - General 02/05/01
== END 2025-04-30 11:32 | disposition home or self-care (01) ==
LOC: HO.HOS 10:48
PROVIDERS: PCP Internal Medicine; Visit Provider Physician Assistant
DX: S83.289A Other tear of lateral meniscus, current injury, unspecified knee, initial encounter (principal); M25.461 Effusion, right knee
CPT/HCPCS: 99024

== ENCOUNTER 2025-05-02 22:50 | Emergency (ER) | payer BC, SELFPAY ==
--- NOTE | ~2025-05-02 | CT_ITS ---
CLINICAL HISTORY: CP, fever CT angiography chest using contrast. 3-D postprocessing Comparison: CR - XR CHEST 1V - 05/02/25 23:29 EDT Findings: Mild motion artifact. No pulmonary embolism identified. No thoracic aorta aneurysm or dissection identified. Limited evaluation of the aortic root and ascending thoracic aorta related to motion artifact at these sites. Heart size is at the upper limits of normal. No focal pulmonary consolidation, pneumothorax, or pleural effusion. Minimal right lower lobe subsegmental atelectasis. Visualized upper abdomen unremarkable. No acute fractures. Impression: 1. Negative for pulmonary embolism. 2. Minimal right lower lobe subsegmental atelectasis. No focal pulmonary consolidation, pneumothorax, or pleural effusion. This document has been electronically signed by: Mihir Bazzi MD on 05/03/2025 03:06:31
--- NOTE | ~2025-05-02 | XR_ITS ---
CLINICAL HISTORY: fever , sob 1 view chest x-ray. Comparison: None provided. Findings: No consolidation, pneumothorax, or effusion. Heart size normal. Impression: 1. No acute cardiopulmonary process. No focal pulmonary consolidation. This document has been electronically signed by: Mihir Bazzi MD on 05/03/2025 00:03:20
--- NOTE | ~2025-05-02 | XR_ITS ---
CLINICAL HISTORY: severe pain 2 view right knee Comparison: DX/SR - XR KNEE 3 VIEWS BILATERAL - 03/04/25 14:17 EDT Findings: Bones intact. No dislocations. No cortical destruction of the bone. There appears to be a equxauth-oj-dbzut right suprapatellar effusion. No radiopaque foreign body. IMPRESSION: 1. No acute fracture or dislocation injury identified at the right knee. 2. Probable jmroagxi-ut-ouoak right suprapatellar effusion. This document has been electronically signed by: Mihir Bazzi MD on 05/03/2025 00:02:25
[2025-05-02 22:55] VITALS: BP 113/72; PULSE 90; RESP 22; TEMP 37.4; O2SAT 100; BMI 25.1
[2025-05-02] MEDS: 0.9 % Sodium Chloride 2,600 ML 999 ML IVCONT (23:34)
--- NOTE | 2025-05-02 23:34 | ED.GENADULT ---
HPI - General Adult General Chief complaint: Fever Stated complaint: had a knee procedure 04/28 , fever 102, 10/10 pain Time Seen by Provider: 05/02/25 23:08 Source: patient Mode of arrival: wheelchair Limitations: no limitations History of Present Illness ED Provider: Dr. Flori Mondragon HPI narrative: Patient comes to the emergency room complaining of worsening right-sided knee pain. Patient states that 4 days ago he had a right knee partial lateral meniscectomy with chondroplasty and lateral release. Patient states that since he arrived home, he has knee has been getting more swollen and very painful to touch. Patient states that now it feels very warm, can not bend his knee due to pain and has been spiking fevers up to 102 F. patient reports shortness of breath with exertion. However, patient states that it is because of the pain. Denies any cough or URI symptoms. Denies any palpitations or chest pain. Patient is unable to bear weight due to the pain Related Data Home Medications ?Medication ?Instructions ?Recorded ?Confirmed cetirizine 10 mg capsule (Zyrtec) 10 mg PO DAILY PRN 04/22/25 04/22/25 Previous Rx's ?Medication ?Instructions ?Recorded hydrocodone 5 mg-acetaminophen 325 1 tab PO Q8H PRN pain 7 days #21 04/22/25 mg tablet tabs oxycodone-acetaminophen 5 mg-325 1 tab PO Q4-6H PRN pain 7 days #42 04/30/25 mg tablet tabs Allergies Allergy/AdvReac Type Severity Reaction Status Date / Time No Known Allergies (No Known Allergy Verified 05/02/25 22:58 Allergies*) Review of Systems Review of Systems: Constitutional : No Weight loss, complaining of fever and chills No Night Sweats, No Fatigue, No Malaise ENT/Mouth : No Hearing loss, No Ear Pain, No Nasal Congestion, No Sinus Pain, No Hoarseness, No sore throat, No Rhinorrhea, No Swallowing Difficulty Eyes: No Eye Pain, No Swelling, No Redness, No Foreign Body, No Discharge, No Vision Changes Cardiovascular : No Chest Pain, No SOB, No Dyspnea on Exertion, No Orthopnea, No Edema, No Palpitations Respiratory : No Cough, No Sputum, No Wheezing, No Smoke Exposure, No Dyspnea Gastrointestinal : No Nausea, No Vomiting, No Diarrhea, No Constipation, No abdominal Pain, No Hematochezia, No Melena Genitourinary : no irregular bleeding, No Dysuria, No Urinary Frequency, No Hematuria, No Urinary Incontinence, No Urgency, No Flank Pain, No Urinary Flow Changes, No Hesitancy Musculoskeletal : Complaining of severe right-sided knee pain and swelling radiating up to the thigh, unable to bear weight, No Myalgias, No Joint Swelling Skin : No Skin Lesions, No rash Neuro : No Weakness, No Numbness, No Paresthesias, No Loss of Consciousness, No Dizziness, No Headache Psych : No Anxiety/Panic, No Depression, No SI/HI/AH/VH, No Social Issues, Heme/Lymph: No Bruising, No Bleeding,No Lymphadenopathy Endocrine : No Polyuria, No Polydipsia, No Temperature Intolerance [facility] Past Medical History Surgical History Hx of hernia repair History of esophagogastroduodenoscopy (EGD) H/O colonoscopy Social History Social History Comment: counts correct Patient Tobacco Use Status: Never used Tobacco Advance Directives: No Advance Directives Information Provided: No Physical Exam ED Exam Exam: Appearance: Alert. Oriented X3. No acute distress. Eyes: Pupils equal, round and reactive to light. ENT: Pharynx normal. Neck: Normal inspection. Neck supple. No lymph nodes noted. No crepitus CVS: Normal heart rate and rhythm. Pulses normal. Normal S1 and S2 Respiratory: No respiratory distress. Breath sounds normal. No Wheezing. No rales Abdomen: Soft and nontender. No rigidity. No distention. Skin: Skin warm and dry. Normal skin color. Normal skin turgor. Extremities: No lower extremity edema. Patient's right knee significantly swollen, very tender to touch and warm. Erythema is not evident at the patient's skin color. However, it is very tender to touch with minimal pressure Neuro: Oriented X 3. No motor deficit. No sensory deficit. Moving all extremities. No slurred speech. CN 2 through 12 grossly intact Psych: calm, cooperative, normal affect Vital Signs: Vital Signs - 24 hr 05/02/25 22:55 05/02/25 23:46 05/03/25 01:42 Temperature 99.3 F 102.0 F H Pulse Rate 90 74 Respiratory Rate 22 H Blood Pressure 113/72 100/56 L Pulse Oximetry 100 Oxygen Delivery Method Room Air 05/03/25 02:19 Temperature Pulse Rate 72 Respiratory Rate Blood Pressure 107/68 Pulse Oximetry Oxygen Delivery Method BMI result Body Mass Index 25.1 Course Course Course Narrative: Patient receiving IV fluids, empirically being treated for septic joint with IV antibiotics, vanco and Zosyn. Patient's labs and imaging pending, patient will need an arthrocentesis Medications Administered Discontinued Medications Generic Name Dose Route Start Last Admin Trade Name Oliverq PRN Reason Stop Dose Admin Acetaminophen 975 mg 05/02/25 23:54 05/02/25 23:59 Acetaminophen 325 Mg Tablet PO 05/02/25 23:55 975 mg ONCE ONE Administration Hydromorphone HCl 1 mg 05/02/25 23:18 05/02/25 23:46 Hydromorphone Hcl 1 Mg/Ml Syringe IVPUSH 05/02/25 23:19 1 mg ONCE ONE Administration Protocol Hydromorphone HCl 1 mg 05/03/25 00:49 05/03/25 02:20 Hydromorphone Hcl 1 Mg/Ml Syringe IVPUSH 05/03/25 00:50 1 mg ONCE ONE Administration Protocol Sodium Chloride 2,600 mls @ 999 mls/hr 05/02/25 23:16 05/02/25 23:34 Ns IVCONT 05/03/25 01:52 999 mls/hr .Q2H37M ONE Administration Vancomycin HCl 2,000 mg in 500 mls @ 250 mls/hr 05/02/25 23:16 05/03/25 01:00 Vancomycin/Ns IV 05/03/25 01:15 250 mls/hr ONCE ONE Administration Piperacillin Sod/Tazobactam 50 mls @ 100 mls/hr 05/02/25 23:16 05/03/25 00:11 Sod 3.375 gm/ Sodium Chloride IV 05/02/25 23:45 Infused ONCE ONE Infusion Iohexol 65 ml 05/03/25 02:11 05/03/25 02:11 Iohexol 350 Mg/Ml 100 Ml Infus..Btl IV 05/03/25 02:12 65 ml ONCE ONE Administration Lidocaine HCl 10 ml 05/02/25 23:39 05/03/25 01:35 Lidocaine Hcl 2 % Mpf 5 Ml Vial INFILTRATI 05/02/25 23:40 10 ml ONCE ONE Administration Medical Decision Making Medical Decision Making [facility] Narrative: My interpretation of labs: No significant abnormality in patient's hematology and chemistry. Lactic acid 2.8. After IV fluids 0.6. Serology negative for influenza RSV and COVID Chest x-ray does not show any acute abnormalities. Patient has a fever of 102 F. patient complaining of right knee pain, swelling and warmth to touch a few days after surgery. Knee x-ray showed a moderate to large right suprapatellar effusion. An arthrocentesis was attempted. No fluid was obtained. Bedside ultrasound does not show any good amount of fluid that could easily be drained, only small pockets that are at least 3 cm deep. However, there is significant cobblestoning pattern, could be due to hematoma versus cellulitis. Patient was empirically covered with vancomycin and Zosyn. Seems that earlier today, the patient called for chest pain shortness of breath which she no longer has. Per orthopedics request, we will rule out PE. Overall, other than the knee, at this time there is no other source of infection that may be causing a fever of 102. I discussed the patient with the hospitalist team, they do not feel comfortable admitting the patient's since this is an Orthopedics patient. I discussed the patient with Orthopedics, initially it was recommended to discharge the patient home. However, the patient has a fever with no other source of infection other than the knee. After discussing this with the on-call physician assistant golf course superintendent, we agree that the patient will stay in the emergency room and will be seen by Orthopedics earlier in the morning. At this time, CT scan to rule out pulmonary embolism is pending. Sign-out given to my colleague Dr. Galvin Differential Diagnosis Differential Diagnoses: The differential diagnosis associated with the presentation includes (Septic joint, joint effusion, cellulitis PE) Admission/Observation Consideration of admission/observation: Escalation of care including admission/observation considered (Admission was recommended and requested, declined by Orthopedics team) Consult Healthcare Provider Management of the patient was discussed with: Hospitalist and Operations Vice President Lab Data [facility] Lab Attestation statement: I reviewed the patient's lab results. 05/02/25 23:32 05/02/25 23:32 Labs: Lab Results 05/02/25 05/03/25 Range/Units 23:32 01:58 WBC 9.4 (4.8-10.8) X10*3/uL RBC 4.31 L (4.60-5.80) X10*6/uL Hgb 13.8 L (14.0-18.0) g/dl Hct 38.9 L (42.0-52.0) % MCV 90.3 (80.0-98.0) fL MCH 32.0 (27.0-33.0) pg MCHC 35.5 (31.0-36.0) g/dl RDW 13.3 (11.0-16.0) % Plt Count 518 H (160-400) X10*3/uL MPV 10.8 (9.4-12.4) fL Immature Gran % (Auto) 0.4 (0.0-0.4) % Neut % (Auto) 67.1 (45-73) % Lymph % (Auto) 19.9 L (20-40) % Tucker % (Auto) 11.8 H (2-11) % Eos % (Auto) 0.5 (0-4) % Baso % (Auto) 0.3 (0-2) % Lymph # (Auto) 1.9 (1.2-4.9) X10*3/uL Tucker # (Auto) 1.1 (0.1-1.2) X10*3/uL Eos # (Auto) 0.1 (0.0-0.4) X10*3/uL Baso # (Auto) 0.0 (0.0-0.2) X10*3/uL Abs Immat Gran (auto) 0.04 H (0.00-0.03) X10*3/uL Absolute Neuts (auto) 6.3 (2.0-8.3) x10*3/uL Absolute Nucleated RBC 0.000 (0.0-0.012) X10*3/uL Nucleated RBC % (auto) 0.0 (0.0-0.2) /100WBC Sodium 136 (135-145) mmol/L Potassium 4.2 (3.3-5.1) mmol/L Chloride 102 (96-108) mmol/L Carbon Dioxide 24 (22-29) mmol/L Anion Gap 14 (12-20) BUN 9 (9-16) mg/dL Creatinine 1.05 (0.5-1.4) mg/dL Estim Creat Clear Calc 100.5 Estimated GFR > 60 Random Glucose 106 (60-115) mg/dL Lactic Acid 2.8 H* (0.5-2.0) mmol/L Lactic Acid F/U @ 2Hr 0.6 (0.5-2.0) mmol/L Calcium 9.2 (8.4-10.2) mg/dL Total Bilirubin 1.2 H (0.0-1.0) mg/dL Direct Bilirubin 0.4 (0.0-0.5) mg/dL AST 31 (5-37) U/L ALT 19 (0-40) U/L Alkaline Phosphatase 59 (39-117) U/L Total Protein 9.3 H (6.5-8.0) g/dL Albumin 4.1 (3.5-5.0) g/dL Influenza Type A (PCR) NEGATIVE (Negative) Influenza Type B (PCR) NEGATIVE (Negative) RSV RNA Qual (PCR) NEGATIVE (Negative) SARS-CoV-2 RNA (RT-PCR) NEGATIVE (Negative) Independent Interpretation I performed an independent interpretation of an: Plain X-Ray Radiology Impression Discussion of test interpretation with radiology: I have reviewed the radiologist's reading. Radiologist Impression: Bones intact. No dislocations. No cortical destruction of the bone. There appears to be a jktphudm-yh-[id number] right suprapatellar effusion. No radiopaque foreign body. IMPRESSION: 1. No acute fracture or dislocation injury identified at the right knee. 2. Probable eopwwgzc-cg-[id number] right suprapatellar effusion. No consolidation, pneumothorax, or effusion. Heart size normal. Impression: 1. No acute cardiopulmonary process. No focal pulmonary consolidation. Independent Historian Clinical information obtained from an independent historian. History obtained from or confirmed by: Spouse Critical Care Time Critical Care Time Critical Care Time: Yes Total Critical Care Time: 75 Attestation: I have personally provided critical care time. Time includes review of lab data, radiology results, discussion with consultants, and monitoring for potential decompensation. Intervention performed as documented. Discharge Plan Discharge Clinical Impression: Knee effusion, right, Fever Prescriptions: No Action Zyrtec 10 mg capsule 10 mg PO DAILY PRN hydrocodone-acetaminophen 5-325 mg tablet 1 tab PO Q8H PRN (Reason: pain) 7 Days Qty: 21 0RF Rx Instructions: Partial Fill upon patient request. Please bring to PACU on date of surgery 04/28/2025 oxycodone-acetaminophen 5-325 mg tablet 1 tab PO Q4-6H PRN (Reason: pain) 7 Days Qty: 42 0RF Rx Instructions: Partial Fill upon patient request. Print Language: [place]
[2025-05-02 23:38] LABS: MANUAL DIFF FLAG NO
[2025-05-02 23:39] LABS: Hematocrit 38.9 % (42.0-52.0); Hemoglobin 13.8 g/dl (14.0-18.0); Imm Gran Abs Auto 0.04 X10*3/uL (0.00-0.03); Imm Gran Pct Auto 0.4 % (0.0-0.4); Lymphocytes Absolute Auto 1.9 X10*3/uL (1.2-4.9); Mean Corpuscular HGB Conc 35.5 g/dl (31.0-36.0); Mean Corpuscular Hemoglobin 32.0 pg (27.0-33.0); Mean Corpuscular Volume 90.3 fL (80.0-98.0); NRBC Abs Auto 0.000 X10*3/uL (0.0-0.012); NRBC Pct Auto 0.0 /100WBC (0.0-0.2); Platelet Count 518 X10*3/uL (160-400); Red Blood Count 4.31 X10*6/uL (4.60-5.80); White Blood Count 9.4 X10*3/uL (4.8-10.8)
[2025-05-02 23:46] VITALS: TEMP 38.9
[2025-05-02 23:54] LABS: Alanine Aminotransferase 19 U/L (0-40); Albumin Level 4.1 g/dL (3.5-5.0); Alkaline Phosphatase 59 U/L (39-117); Anion Gap 14 (12-20); Aspartate Amino Transferase 31 U/L (5-37); Blood Urea Nitrogen 9 mg/dL (9-16); Calcium 9.2 mg/dL (8.4-10.2); Carbon Dioxide 24 mmol/L (22-29); Chloride 102 mmol/L (96-108); Creatinine Clr Calc Pharmacy 100.5; Estimated Glomerular Filt Rate > 60; Potassium 4.2 mmol/L (3.3-5.1); Sodium 136 mmol/L (135-145); Total Protein 9.3 g/dL (6.5-8.0)
[2025-05-03] VITALS (11 sets, daily range): BP systolic 99–130; BP diastolic 56–69; PULSE 64–83; RESP 16–20; TEMP 37–39.3; O2SAT 94–99
[2025-05-03 00:21] LABS: Resp Syncy Virus RNA Qual PCR NEGATIVE (Negative); SARS COV2 PCR INHOUSE NEGATIVE (Negative)
[2025-05-03] MEDS: vancomycin/NS 2,000 MG/500 ML PLAST..BAG 250 MG IV (01:00)
[2025-05-03] MEDS: Lidocaine HCl 2 % MPF 5 ML VIAL 10 ML INFILTRATI (01:35)
[2025-05-03 01:36] LABS: Reflex Lactate? Lactic Acid Added
[2025-05-03] MEDS: iohexoL 350 MG/ML 100 ML INFUS..BTL 65 ML IV (02:11)
[2025-05-03 02:19] LABS: ~Lactic Acid-LAB USE ONLY 0.6 mmol/L (0.5-2.0)
--- NOTE | 2025-05-03 07:25 | PC.NURSE ---
Resumed care of pt at 0700, he is currently resting comfortably, pt reporting still mild pain in knee, at this time awaiting ortho to come and assess the patient, pt and family member updated of plan at this time. Call yde within reach
[2025-05-03 09:46] LABS: Appearance Urine Clear; Glucose Urine UA Negative (Negative); PH 7.5 (5.0-9.0); Specific Gravity - Urine 1.020 (1.005-1.025)
[2025-05-03] MEDS: oxyCODONE HCl Immed Release 5 MG TABLET PO (11:25)
--- NOTE | 2025-05-03 12:02 | PC.NURSE ---
MD made aware of temp, APAP ordered and given at this time. Awaiting dispo plan
[2025-05-03 13:18] LABS: Source Synovial Fluid knee
--- NOTE | 2025-05-03 13:18 | PC.NURSE ---
Knee aspirate sent down for Ortho, temp is starting to come down post APAP, pt reporting pain is now a 6/10, but knee pressure is better post aspiration
[2025-05-03 14:02] LABS: MN% 47.5 %; PMN% 452.5 %; RBC Synovial Fluid 2.270 X10*6/uL
[2025-05-03 14:53] LABS: BF Shift QC OK YES; Lymphocytes Synovial Fluid 3 %; Man Diluent Bkgrd OK YES; Monocytes Synovial Fluid 4 %; Neutrophils Synovial Fluid 93 %
[2025-05-04 07:21] LABS: Glucose Synovial Fluid 4
[2025-05-04 07:22] LABS: Total Protein Synovial Fluid 2.2
== END 2025-05-03 14:15 | disposition home or self-care (01) ==
PROVIDERS: Emergency Medicine; Emergency Provider Emergency Medicine; PCP Internal Medicine
DX: M25.461 Effusion, right knee (principal); M25.561 Pain in right knee; R07.89 Other chest pain; R50.9 Fever, unspecified; R06.02 Shortness of breath; R11.0 Nausea; M25.562 Pain in left knee; Z79.899 Other long term (current) drug therapy; Z03.818 Encounter for observation for suspected exposure to other biological agents ruled out
CPT/HCPCS: 36415; 71045; 71275; 73560; 80048; 80076; 81003; 82945; 83605; 84157; 85025; 87040; 87070; 87073; 87205; 87637; 89051; 89060; 96360; 96361; 96375; 96376; 99285; J1171; J2003; J2543; J3373; Q9967

== ENCOUNTER → 2025-05-02 23:18 | Outpatient (BNV) | payer BC, SELFPAY | PROVIDERS: Emergency Provider Emergency Medicine; PCP Internal Medicine; Visit Provider Radiology Diagnostic Radiology | DX: R07.9 Chest pain, unspecified (principal); R06.02 Shortness of breath; M25.561 Pain in right knee | CPT/HCPCS: 71045; 73560 ==

== ENCOUNTER → 2025-05-03 01:53 | Outpatient (BNV) | payer BC, SELFPAY | PROVIDERS: Emergency Provider Emergency Medicine; PCP Internal Medicine; Visit Provider Radiology Diagnostic Radiology | DX: R07.9 Chest pain, unspecified (principal); R50.9 Fever, unspecified | CPT/HCPCS: 71275 ==

== ENCOUNTER 2025-05-06 14:06 | Outpatient (AMB) | payer BC, SELFPAY ==
[2025-05-06 14:08] VITALS: BMI 25.1
--- NOTE | 2025-05-06 14:08 | A.OFFVIS_ITS ---
Vital Signs 05/06/25 14:08 Height 6 ft Weight 185 lb BMI 25.1 Intake Visit Reasons: PO-Rt Knee 04/28/25 NE per Intake Note: Dayne is a 44 year old male who presents today post-operatively after undergoing a right knee arthroscopy on 04/28/[address] Perez. Sutures removed in office today. Patient reports he has been experiencing swelling and severe pain despite taking Percocet. Patient states he discontinued his antibitoics as recommended by surgeon, however he continues to experience fevers and chills, most recent temperature was taken last night, around 103. Allergies No Known Allergies (No Known Allergies*) Allergy (Verified 05/06/25 14:18) HPI HPI PO-Rt Knee 04/28/25 NE per : Details: Mr. Bundy is a 44-year-old male who presents to the office today status post right knee arthroscopy for partial lateral meniscectomy with chondroplasty and lateral release that was performed on 04/28/[address] Perez. Patient has been struggling with pain and a large hematoma postoperatively. He was seen in the emergency room on 05/02/2025 after calling the answering service and reported to the on-call provider that he felt short of breath with walking short distances. He was worked up for DVT/PE and was negative. He presents to the office today having difficulty with managing his pain from the pressure in the right knee. He continues to have fevers that wax and wane at night mostly. He reports that this is however slowly getting better and less frequent. [facility] Surgical History Hx of hernia repair History of esophagogastroduodenoscopy (EGD) H/O colonoscopy Social History Comment: counts correct Patient Tobacco Use Status: Never used Tobacco Review of Systems Const All systems reviewed & are unremarkable except as noted in HPI and below Physical Exam Vital Signs: BMI result Body Mass Index 25.1 Const General: cooperative, healthy appearing and no acute distress Resp Effort & Inspection: normal respiratory effort and able to speak in complete sentences Extrem Other: Right knee incision sites are clean dry and intact. Sutures intact. Large development of hematoma. Able to demonstrate slight flexion and extension. NVI. Assessment & Plan Assessment & Plan (1) Lateral subluxation of patella: Code(s): S83.013A - Lateral subluxation of unspecified patella, initial encounter Category: Medical (2) Lateral meniscal tear: Code(s): S83.289A - Other tear of lateral meniscus, current injury, unspecified knee, initial encounter Category: Medical (3) Chondromalacia patellae of right knee: Code(s): M22.41 - Chondromalacia patellae, right knee Category: Medical Plan Mr. Bundy is a 44-year-old male who presents to the office today status post right knee arthroscopy for partial lateral meniscectomy with chondroplasty and lateral release that was performed on 04/28/[address] Perez. Patient has been struggling with pain and a large hematoma postoperatively. He was seen in the emergency room on 05/02/2025 after calling the answering service and reported to the on-call provider that he felt short of breath with walking short distances. He was worked up for DVT/PE and was negative. [facility] having difficulty with managing his pain from the pressure in the right knee. He continues to have fevers that wax and wane at night mostly. He reports that this is however slowly getting better and less frequent. Dr. Perez was available to see the patient with me while in the office today. We discussed the role of hematoma evacuation in the operating room. Dr. Perez and I discussed in detail the procedure and what to expect pre and post operatively. We discussed the risks, benefits and alternatives to the surgery as well as the rehabilitation course. The risks; which include, but are not limited to infection, bleeding, nerve injury, ongoing pain, swelling, and stiffness, perioperative risk of injury to bones and soft tissues, and blood clots. Patient understands to be NPO after midnight. Sutures will be removed in the operating room. I?ve answered all questions and with their understanding they have consented to move forward with right knee hematoma evacuation with Dr. Perez. Coding Level of Care Code Global (88093) Diagnoses Lateral subluxation of patella S83.013A Lateral meniscal tear S83.289A Chondromalacia patellae of right knee M22.41
--- OUTSIDE RECORDS SUMMARY | 2025-05-06 14:21 | XMS_ITS | Clinical Summary ---
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); IgG lambda monoclonal gammopathy; Chronic hepatitis B ([facility] V24, [facility] V28) 03/29/2025 Telephone Orthopedic Surgery [facility] [address] [facility] [address] [place] [address] Lina Gilbert MA Surgery 02/03/2025 3:00 PM EDT Office Visit Orthopedic Surgery [facility] [address] [facility] [address] [place] [phone] James Fry MD Arthritis of right knee (Primary Dx) from Last 3 Months Immunizations Name Administration Dates Next Due Hepatitis B (Evisifc-O-Xoago , Recombivax HB-Adult) 19yo and older 07/13/2009,02/11/2008,01/14/2008 [...] 4:00 PM EDT Office Visit Adult Medicine [facility] [address] [place] [address] Elizabeth Carter PA [address] [place] [address] 10/13/2025 3:30 PM EST Office Visit [facility] Hematology Oncology [address] [place] [address] Ryland Dominguez MD [address] [place] [address] Health Maintenance Due Date Last [...] Procedure Name Priority Date/Time Associated Diagnosis Comments [place] PROTEIN ELECTROPHORETIC FRACTIONATION & QUANTITATION SERUM Routine 03/23/2025 3:06 PM EDT MGUS (monoclonal gammopathy of unknown significance) [place] IMMUNOFIXATION ELECTROPHORESIS SERUM Routine 03/23/2025 3:06 PM [...] EDT MGUS (monoclonal gammopathy of unknown significance) [place] ARTHROCENTESIS/ASPIRATI ON/INJECTION MAJOR JOINT/BURSA W/O U/S GUIDANCE Routine 02/03/2025 3:00 PM EDT Arthritis of right knee from Last 3 Months Results * Pathologist Review Immunofixation (03/23/2025 3:06 PM EDT) Pathologist Interpretation Reviewed by Kandi Abel MD 03/24/2025 3:11 PM EDT [facility] Blood Venous blood specimen / Unknown Venipuncture / Unknown 03/23/2025 3:06 PM EDT 03/23/2025 4:39 PM EDT us Ryland Dominguez MD LAB BLOOD ORDERABLE S Final Result Performing Organization Address [facility]/ZIP Co de Phone Number [facility] [address] [place] [address], [place] [phone] * PATHOLOGIST REVIEW PROTEIN ELECTROPHORESIS (03/23/2025 3:06 PM EDT) Pathologist [facility] Pathologist Interpretation Reviewed by Kandi Abel MD 03/24/2025 4:55 PM EDT [facility] Blood Venous blood specimen / Unknown Venipuncture / Unknown 03/23/2025 3:06 PM EDT 03/23/2025 4:39 PM EDT us Subramaddie Dominguez MD LAB BLOOD ORDERABLE S Final Result Performing Organization Address City/[facility]/ZIP Co de Phone Number [facility] [address] [place] [address], [place] [phone] * (ABNORMAL) [place]-lambda free light chains, quantitative (03/23/2025 3:06 PM EDT) [facility] [place] Free Light Chain 0.82 0.33 - 1.94 mg/dL 03/26/2025 12:[address] [facility] Lambda Free Light Chain 15.64(H) 0.57 - 2.63 mg/dL 03/26/2025 12:[address] [facility] [place]/Lambda FLC Ratio 0.05(L) 0.26 - 1.65 03/26/2025 12:[address] [facility] Comment: Test performed at [facility], [address], [place] [address] Melissa Toledo MD, PhD - Charter Representative Blood Venous blood specimen / Unknown Venipuncture / Unknown 03/23/2025 3:06 PM EDT 03/23/2025 4:39 PM EDT Subramaddie Dominguez MD LAB BLOOD ORDERABLE S Final Result [facility] [address] [place] [address] * (ABNORMAL) CBC auto differential (03/23/2025 3:06 PM EDT) WBC 6.3 4.8 - 10.8 K/mcL LAB HEMETOLOGY METHOD 03/23/2025 4:46 PM EDT [facility] RBC 4.50 4.50 - 5.50 M/mcL LAB HEMETOLOGY METHOD 03/23/2025 4:46 PM EDT [facility] Hemoglobin 14.7 13.5 - 17.5 g/dL LAB HEMETOLOGY METHOD 03/23/2025 4:46 PM EDT [facility] Hematocrit 43.5 42.0 - 54.0 % LAB HEMETOLOGY METHOD 03/23/2025 4:46 PM EDT [facility] MCV 97.3 79.0 - 98.0 FL LAB HEMETOLOGY METHOD 03/23/2025 4:46 PM EDT [facility] MCH 32.9(H) 27.0 - 32.0 pcg LAB HEMETOLOGY METHOD 03/23/2025 4:46 PM [facility] MCHC 33.8 32.0 - 37.0 g/dL LAB HEMETOLOGY METHOD 03/23/2025 4:46 PM [facility] RDW 14.4 11.0 - 15.0 % LAB HEMETOLOGY METHOD 03/23/2025 4:46 PM [facility] Platelets 485(H) 130 - 400 K/mcL LAB HEMETOLOGY METHOD 03/23/2025 4:46 PM [facility] MPV 11.2(H) 7.0 - 11.0 FL LAB HEMETOLOGY METHOD 03/23/2025 4:46 PM [facility] NRBC 0.0 <1.0 % LAB HEMETOLOGY METHOD 03/23/2025 4:46 PM [facility] NRBC Absolute 0.00 <0.10 K/mcL LAB HEMETOLOGY METHOD 03/23/2025 4:46 PM [facility] Neutrophils Relative 57.8 % LAB HEMETOLOGY METHOD 03/23/2025 4:46 PM [facility] Lymphocytes Relative 30.6 % LAB HEMETOLOGY METHOD 03/23/2025 4:46 PM [facility] Monocytes Relative 8.9 % LAB HEMETOLOGY METHOD 03/23/2025 4:46 PM [facility] Eosinophils Relative 1.9 % LAB HEMETOLOGY METHOD 03/23/2025 4:46 PM [facility] Basophils Relative 0.5 % LAB HEMETOLOGY METHOD 03/23/2025 4:46 PM [facility] Immature Granulocytes Relative 0.3 % LAB HEMETOLOGY METHOD 03/23/2025 4:46 PM [facility] Neutrophils Absolute 3.65 1.50 - 7.00 K/mcL LAB HEMETOLOGY METHOD 03/23/2025 4:46 PM EDT [facility] Lymphocytes Absolute 1.93 1.00 - 5.00 K/[facility] LAB HEMETOLOGY METHOD 03/23/2025 4:46 PM EDT [facility] Monocytes Absolute 0.56 0.20 - 1.00 K/mcL LAB HEMETOLOGY METHOD 03/23/2025 4:46 PM EDT [facility] Eosinophils Absolute 0.12 0.00 - 0.50 K/[facility] LAB HEMETOLOGY METHOD 03/23/2025 4:46 PM EDT [facility] Basophils Absolute 0.03 0.00 - 0.20 K/[facility] LAB HEMETOLOGY METHOD 03/23/2025 4:46 PM EDT [facility] Immature Granulocytes Absolute 0.02 0.00 - 0.03 K/[facility] LAB HEMETOLOGY METHOD 03/23/2025 4:46 PM EDT [facility] Blood Venous blood specimen / Unknown Venipuncture / Unknown 03/23/2025 3:06 PM EDT 03/23/2025 4:39 PM EDT us Subramony Angelica GOULD LAB BLOOD ORDERABLE S Final Result [facility] [address] [place] [address], * Immunofixation electrophoresis serum (03/23/2025 3:06 PM EDT) Immunofixation Result, Serum IgG Lambda monoclonal immunoglobulins detected. LAB CHEMISTRY METHOD 03/24/2025 3:11 PM EDT [facility] Blood Venous blood specimen / Unknown Venipuncture / Unknown 03/23/2025 3:06 PM EDT 03/23/2025 4:39 PM EDT us Subramony Subramonia-Raji MD LAB BLOOD ORDERABLE S Final Result [facility] [address] [place] [address], [place] [phone] * (ABNORMAL) Immunoglobulins IgG, IgA, IgM (03/23/2025 3:06 PM EDT) Pathologist [facility] Total IgG 3,370(H) 549 - 1,584 mg/dL LAB CHEMISTRY METHOD 03/24/2025 12:28 PM EDT [facility] IgA 32(L) 61 - 348 mg/dL LAB CHEMISTRY METHOD 03/24/2025 12:28 PM EDT [facility] IgM 40 23 - 259 mg/dL LAB CHEMISTRY METHOD 03/24/2025 12:28 PM EDT [facility] Blood Venous blood specimen / Unknown Venipuncture / Unknown 03/23/2025 3:06 PM EDT 03/23/2025 4:39 PM EDT Subphi Dominguez MD LAB BLOOD ORDERABLE S Final Result [facility] [address] [place] [address], [place] [phone] * (ABNORMAL) Protein electrophoresis, serum (03/23/2025 3:06 PM EDT) Total Protein 8.7(H) 6.0 - 8.0 g/dL LAB CHEMISTRY METHOD 03/24/2025 4:55 PM EDT [facility] Albumin, Serum 4.0 2.9 - 4.1 g/dL LAB CHEMISTRY METHOD 03/24/2025 4:55 PM EDT [facility] Alpha 1 Globulin (g/dL) 0.2 0.1 - 0.5 g/dL LAB CHEMISTRY METHOD 03/24/2025 4:55 PM EDT [facility] Alpha 2 Globulin (g/dL) 0.8 0.7 - 1.5 g/dL LAB CHEMISTRY METHOD 03/24/2025 4:55 PM EDT [facility] Beta (g/dL) 0.8 0.7 - 1.5 g/dL LAB CHEMISTRY METHOD 03/24/2025 4:55 PM EDT [facility] Gamma Globulin (g/dL) 2.9(H) 0.7 - 1.9 g/dL LAB CHEMISTRY METHOD 03/24/2025 4:55 PM EDT [facility] PARAPROTEIN 1.7 g/dL LAB CHEMISTRY METHOD 03/24/2025 4:55 PM EDT [facility] SPEP Interpretation Monoclonal gammopathy Abnormal pattern with M-spike of gamma globulin mobility. Serum Immunofixation performed on this specimen demonstrated IgG Lambda monoclonal protein. LAB CHEMISTRY METHOD 03/24/2025 4:55 PM EDT [facility] Blood Venous blood specimen / Unknown Venipuncture / Unknown 03/23/2025 3:06 PM EDT 03/23/2025 4:39 PM EDT us Ryland Dominguez MD LAB BLOOD ORDERABLE S Final Result [facility] [address] [place] [address], * (ABNORMAL) Protein, total (03/23/2025 3:06 PM EDT) Total Protein 8.7(H) 6.0 - 8.0 g/dL LAB CHEMISTRY METHOD 03/23/2025 4:58 PM EDT [facility] Blood Venous blood specimen / Unknown Venipuncture / Unknown 03/23/2025 3:06 PM EDT 03/23/2025 4:39 PM EDT us Ryland Dominguez MD LAB BLOOD ORDERABLE S Final Result Performing Organization Address [facility]/ZIP Co de Phone Number [facility] [address] [place] [address], * Lactate dehydrogenase (03/23/2025 3:06 PM EDT) Pathologist [facility] LDH 197 120 - 246 unit/L LAB CHEMISTRY METHOD 03/23/2025 5:06 PM EDT [facility] Blood Venous blood specimen / Unknown Venipuncture / Unknown 03/23/2025 3:06 PM EDT 03/23/2025 4:39 PM EDT Subramaddie Dominguez MD LAB BLOOD ORDERABLE S Final Result Performing Organization Address [facility]/ZIP Co de Phone Number [facility] [address] [place] [address], * (ABNORMAL) Comprehensive metabolic panel (03/23/2025 3:06 PM EDT) Pathologist [facility] Sodium 136 133 - 145 mmol/L LAB CHEMISTRY METHOD 03/23/2025 5:18 PM EDT [facility] Potassium 4.1 3.5 - 5.5 mmol/L LAB CHEMISTRY METHOD 03/23/2025 5:18 PM [facility] Chloride 102 96 - 110 mmol/L LAB CHEMISTRY METHOD 03/23/2025 5:18 PM T [facility] CO2 29 21 - 32 mmol/L LAB CHEMISTRY METHOD 03/23/2025 5:18 PM [facility] Anion Gap 5 3 - 11 LAB CHEMISTRY METHOD 03/23/2025 5:18 PM [facility] Glucose 83 70 - 100 mg/dL LAB CHEMISTRY METHOD 03/23/2025 5:18 PM [facility] BUN 8 5 - 25 mg/dL LAB CHEMISTRY METHOD 03/23/2025 5:18 PM [facility] Creatinine 1.00 0.70 - 1.30 mg/dL LAB CHEMISTRY METHOD 03/23/2025 5:18 PM [facility] eGFR 96 >=60 mL/min/1. 73m2 LAB CHEMISTRY METHOD 03/23/2025 5:18 PM [facility] Comment:Calculation based on the Chronic Kidney Disease Epidemiology Collaboration (CKD-EPI) equation refit without adjustment for race. BUN/Creatinine Ratio 8.0 LAB CHEMISTRY METHOD 03/23/2025 5:18 PM [facility] Calcium 9.2 8.5 - 10.5 mg/dL LAB CHEMISTRY METHOD 03/23/2025 5:18 PM [facility] AST (SGOT) 35 10 - 42 unit/L LAB CHEMISTRY METHOD 03/23/2025 5:18 PM [facility] ALT (SGPT) 61(H) 10 - 60 unit/L LAB CHEMISTRY METHOD 03/23/2025 5:18 PM [facility] Alkaline Phosphatase 64 42 - 121 unit/L LAB CHEMISTRY METHOD 03/23/2025 5:18 PM [facility] Total Protein 8.7(H) 6.0 - 8.0 g/dL LAB CHEMISTRY METHOD 03/23/2025 5:18 PM [facility] Albumin 3.7 3.2 - 5.0 g/dL LAB CHEMISTRY METHOD 03/23/2025 5:18 PM [facility] Total Bilirubin 0.7 0.0 - 1.4 mg/dL LAB CHEMISTRY METHOD 03/23/2025 5:18 PM [facility] Blood Venous blood specimen / Unknown Venipuncture / Unknown 03/23/2025 3:06 PM EDT 03/23/2025 4:39 PM EDT Ryland Dominguez MD LAB BLOOD ORDERABLE S Final Result [facility] [address] [place] [address], [place] [phone] * [place] ARTHROCENTESIS/ASPIRATION/INJECTION MAJOR JOINT/BURSA W/O U/S GUIDANCE (02/03/2025 [...] Result from Last 3 Months Insurance [facility] Care Teams Paper Reclaiming Machine Operator Relationship Specialty Start Date End Date Lexus Sanders MD [address] [place] [address] PCP - General 02/05/01
--- OUTSIDE RECORDS SUMMARY | 2025-05-06 14:21 | XMS_ITS | Clinical Summary ---
Author Organization [facility] Address [address] [place] [address] Care Team Providers Care Shrimp Packer Name Role Phone Lexus Sanders MD Primary Care Provider [phone] Allergies No known active allergies Medications Medication [...] age to complete this topic Care Teams Shrimp Packer Relationship Specialty Start Date End Date Lexus Sanders MD PCP - General Internal Medicine 02/14/24
== END 2025-05-06 14:46 | disposition home or self-care (01) ==
LOC: HO.HOS 14:07
PROVIDERS: Absent Provider Physician Assistant; PCP Internal Medicine; Visit Provider Physician Assistant
DX: S83.013A Lateral subluxation of unspecified patella, initial encounter (principal); S83.289A Other tear of lateral meniscus, current injury, unspecified knee, initial encounter; M22.41 Chondromalacia patellae, right knee
CPT/HCPCS: 99024

== ENCOUNTER 2025-05-07 11:23 | Day surgery (SDC) | payer BC, SELFPAY ==
[2025-05-07] VITALS (15 sets, daily range): BP systolic 119–136; BP diastolic 73–88; PULSE 68–81; RESP 14–23; TEMP 36.6–37.3; O2SAT 96–100; BMI 25.1
--- OUTSIDE RECORDS SUMMARY | 2025-05-07 05:59 | XMS_ITS | Clinical Summary ---
Author Organization [facility] Address [address] [place] [address] Care Team Providers Care Craft Demonstrator Name Role Phone Lexus Sanders MD Primary Care Provider [phone] Allergies No known active allergies Medications Medication [...] age to complete this topic Care Teams Craft Demonstrator Relationship Specialty Start Date End Date Lexus Sanders MD PCP - General Internal Medicine 02/14/24
--- OUTSIDE RECORDS SUMMARY | 2025-05-07 05:59 | XMS_ITS | Clinical Summary ---
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); IgG lambda monoclonal gammopathy; Chronic hepatitis B ([facility]/HCC V24, [facility]/HCC V28) 03/29/2025 Telephone Orthopedic Surgery [facility] [address] [facility] [address] [place] [address] Lina Gilbert MA Surgery from Last 3 Months Immunizations Name Administration Dates Next Due Hepatitis B ([id number]-Jrets , Recombivax HB-Adult) 19yo and older 07/13/2009,02/11/2008,01/14/2008 [...] 4:00 PM EDT Office Visit Adult Medicine [facility] [address] [place] [phone] Elizabeth Carter PA [address] [place] [address] 10/13/2025 3:30 PM EST Office Visit [facility] Hematology Oncology [address] [place] [phone] Ryland Dominguez MD [address] [place] [phone] Health Maintenance Due Date Last Done [...] Procedure Name Priority Date/Time Associated Diagnosis Comments [place] PROTEIN ELECTROPHORETIC FRACTIONATION & QUANTITATION SERUM Routine 03/23/2025 3:06 PM EDT MGUS (monoclonal gammopathy of unknown significance) [place] IMMUNOFIXATION ELECTROPHORESIS SERUM Routine 03/23/2025 3:06 PM [...] EDT MGUS (monoclonal gammopathy of unknown significance) from Last 3 Months Results * Pathologist Review Immunofixation (03/23/2025 3:06 PM EDT) Pathologist Interpretation Reviewed by Kandi Abel MD 03/24/2025 3:11 PM EDT [facility] Blood Venous blood specimen / Unknown Venipuncture / Unknown 03/23/2025 3:06 PM EDT 03/23/2025 4:39 PM EDT Ryland Dominguez MD LAB BLOOD ORDERABLE S Final Result Performing Organization Address [facility]/ZIP Co de Phone Number [facility] [address] [place] [address], [place] [phone] * PATHOLOGIST REVIEW PROTEIN ELECTROPHORESIS (03/23/2025 3:06 PM EDT) Pathologist [facility] Pathologist Interpretation Reviewed by Kandi Abel MD 03/24/2025 4:55 PM EDT [facility] Blood Venous blood specimen / Unknown Venipuncture / Unknown 03/23/2025 3:06 PM EDT 03/23/2025 4:39 PM EDT us Ryland Dominguez MD LAB BLOOD ORDERABLE S Final Result Performing Organization Address [facility] Co de Phone Number [facility] [address] [place] [address], [place] [phone] * (ABNORMAL) Galena-lambda free light chains, quantitative (03/23/2025 3:06 PM EDT) [place] Free Light Chain 0.82 0.33 - 1.94 mg/dL 03/26/2025 12:46 PM EDT [facility] Lambda Free Light Chain 15.64(H) 0.57 - 2.63 mg/dL 03/26/2025 12:46 PM EDT [facility] Galena/Lambda FLC Ratio 0.05(L) 0.26 - 1.65 03/26/2025 12:46 PM EDT [facility] Comment: Test performed at [facility], [address] , [place] [address] Melissa Toledo MD, PhD - Call Center Support Consultant Blood Venous blood specimen / Unknown Venipuncture / Unknown 03/23/2025 3:06 PM EDT 03/23/2025 4:39 PM EDT Ryland Dominguez MD LAB BLOOD ORDERABLE S Final Result [facility] [address] [place] [address] * (ABNORMAL) CBC auto differential (03/23/2025 3:06 PM EDT) WBC 6.3 4.8 - 10.8 K/mcL LAB HEMETOLOGY METHOD 03/23/2025 4:46 PM EDT [facility] RBC 4.50 4.50 - 5.50 M/mcL LAB HEMETOLOGY METHOD 03/23/2025 4:46 PM EDT [facility] Hemoglobin 14.7 13.5 - 17.5 g/dL LAB HEMETOLOGY METHOD 03/23/2025 4:46 PM EDT [facility] Hematocrit 43.5 42.0 - 54.0 % LAB HEMETOLOGY METHOD 03/23/2025 4:46 PM EDT [facility] MCV 97.3 79.0 - 98.0 FL LAB HEMETOLOGY METHOD 03/23/2025 4:46 PM EDT [facility] MCH 32.9(H) 27.0 - 32.0 pcg LAB HEMETOLOGY METHOD 03/23/2025 4:46 PM EDT [facility] MCHC 33.8 32.0 - 37.0 g/dL LAB HEMETOLOGY METHOD 03/23/2025 4:46 PM EDT [facility] RDW 14.4 11.0 - 15.0 % LAB HEMETOLOGY METHOD 03/23/2025 4:46 PM EDT [facility] Platelets 485(H) 130 - 400 K/mcL LAB HEMETOLOGY METHOD 03/23/2025 4:46 PM EDT [facility] MPV 11.2(H) 7.0 - 11.0 FL LAB HEMETOLOGY METHOD 03/23/2025 4:46 [facility] NRBC 0.0 <1.0 % LAB HEMETOLOGY METHOD 03/23/2025 4:46 PM [facility] NRBC Absolute 0.00 <0.10 K/mcL LAB HEMETOLOGY METHOD 03/23/2025 4:46 PM [facility] Neutrophils Relative 57.8 % LAB HEMETOLOGY METHOD 03/23/2025 4:46 PM [facility] Lymphocytes Relative 30.6 % LAB HEMETOLOGY METHOD 03/23/2025 4:46 PM [facility] Monocytes Relative 8.9 % LAB HEMETOLOGY METHOD 03/23/2025 4:46 PM [facility] Eosinophils Relative 1.9 % LAB HEMETOLOGY METHOD 03/23/2025 4:46 PM [facility] Basophils Relative 0.5 % LAB HEMETOLOGY METHOD 03/23/2025 4:46 PM [facility] Immature Granulocytes Relative 0.3 % LAB HEMETOLOGY METHOD 03/23/2025 4:46 PM EDT [facility] Neutrophils Absolute 3.65 1.50 - 7.00 K/mcL LAB HEMETOLOGY METHOD 03/23/2025 4:46 PM [facility] Lymphocytes Absolute 1.93 1.00 - 5.00 K/mcL LAB HEMETOLOGY METHOD 03/23/2025 4:46 PM [facility] Monocytes Absolute 0.56 0.20 - 1.00 K/mcL LAB HEMETOLOGY METHOD 03/23/2025 4:46 PM EDT [facility] Eosinophils Absolute 0.12 0.00 - 0.50 K/mcL LAB HEMETOLOGY METHOD 03/23/2025 4:46 PM EDT [facility] Basophils Absolute 0.03 0.00 - 0.20 K/[facility] LAB HEMETOLOGY METHOD 03/23/2025 4:46 PM EDT [facility] Immature Granulocytes Absolute 0.02 0.00 - 0.03 K/[facility] LAB HEMETOLOGY METHOD 03/23/2025 4:46 PM EDT [facility] Blood Venous blood specimen / Unknown Venipuncture / Unknown 03/23/2025 3:06 PM EDT 03/23/2025 4:39 PM EDT us Ryland Dominguez MD LAB BLOOD ORDERABLE S Final Result Performing Organization Address [facility]/ZIP Co de Phone Number [facility] [address] [place] [address], [place] [phone] * Immunofixation electrophoresis serum (03/23/2025 3:06 PM EDT) [facility] Immunofixation Result, Serum IgG Lambda monoclonal immunoglobulins detected. LAB CHEMISTRY METHOD 03/24/2025 3:11 PM EDT [facility] Blood Venous blood specimen / Unknown Venipuncture / Unknown 03/23/2025 3:06 PM EDT 03/23/2025 4:39 PM EDT Ryland Dominguez MD LAB BLOOD ORDERABLE S Final Result Performing Organization Address City/[facility]/ZIP Co de Phone Number [facility] [address] [place] [address], [place] [phone] * (ABNORMAL) Immunoglobulins IgG, IgA, IgM (03/23/2025 3:06 PM EDT) [facility] Total IgG 3,370(H) 549 - 1,584 mg/dL LAB CHEMISTRY METHOD 03/24/2025 12:28 PM EDT [facility] IgA 32(L) 61 - 348 mg/dL LAB CHEMISTRY METHOD 03/24/2025 12:28 PM EDT [facility] IgM 40 23 - 259 mg/dL LAB CHEMISTRY METHOD 03/24/2025 12:28 PM EDT [facility] Blood Venous blood specimen / Unknown Venipuncture / Unknown 03/23/2025 3:06 PM EDT 03/23/2025 4:39 PM EDT Subphi Dominguez MD LAB BLOOD ORDERABLE S Final Result [facility] [address] [place] [address], * (ABNORMAL) Protein electrophoresis, serum (03/23/2025 3:06 PM EDT) Total Protein 8.7(H) 6.0 - 8.0 g/dL LAB CHEMISTRY METHOD 03/24/2025 4:55 PM EDT [facility] Albumin, Serum 4.0 2.9 - 4.1 g/dL LAB CHEMISTRY METHOD 03/24/2025 4:55 PM EDT [facility] Alpha 1 Globulin (g/dL) 0.2 0.1 - 0.5 g/dL LAB CHEMISTRY METHOD 03/24/2025 4:55 PM EDT [facility] Alpha 2 Globulin (g/dL) 0.8 0.7 - 1.5 g/dL LAB CHEMISTRY METHOD 03/24/2025 4:55 PM EDT [facility] Beta (g/dL) 0.8 0.7 - 1.5 g/dL LAB CHEMISTRY METHOD 03/24/2025 4:55 PM EDT [facility] Gamma Globulin (g/dL) 2.9(H) 0.7 - 1.9 g/dL LAB CHEMISTRY METHOD 03/24/2025 4:55 PM EDT [facility] PARAPROTEIN 1.7 g/dL LAB CHEMISTRY METHOD 03/24/2025 4:55 PM EDT [facility] SPEP Interpretation Monoclonal gammopathy Abnormal pattern with M-spike of gamma globulin mobility. Serum Immunofixation performed on this specimen demonstrated IgG Lambda monoclonal protein. LAB CHEMISTRY METHOD 03/24/2025 4:55 PM EDT [facility] Blood Venous blood specimen / Unknown Venipuncture / Unknown 03/23/2025 3:06 PM EDT 03/23/2025 4:39 PM EDT us Ryland Dominguez MD LAB BLOOD ORDERABLE S Final Result Performing Organization Address [facility]/ZIP Co de Phone Number [facility] [address] [place] [address], [place] [phone] * (ABNORMAL) Protein, total (03/23/2025 3:06 PM EDT) Total Protein 8.7(H) 6.0 - 8.0 g/dL LAB CHEMISTRY METHOD 03/23/2025 4:58 PM EDT [facility] Blood Venous blood specimen / Unknown Venipuncture / Unknown 03/23/2025 3:06 PM EDT 03/23/2025 4:39 PM EDT us Ryland Dominguez MD LAB BLOOD ORDERABLE S Final Result Performing Organization Address City/[facility]/ZIP Co de Phone Number [facility] [address] [place] [address], [place] [phone] * Lactate dehydrogenase (03/23/2025 3:06 PM EDT) LDH 197 120 - 246 unit/L LAB CHEMISTRY METHOD 03/23/2025 5:06 PM EDT [facility] Blood Venous blood specimen / Unknown Venipuncture / Unknown 03/23/2025 3:06 PM EDT 03/23/2025 4:39 PM EDT Ryland Dominguez MD LAB BLOOD ORDERABLE S Final Result [facility] [address] [place] [address], [place] [phone] * (ABNORMAL) Comprehensive metabolic panel (03/23/2025 3:06 PM EDT) Sodium 136 133 - 145 mmol/L LAB CHEMISTRY METHOD 03/23/2025 5:18 PM [facility] Potassium 4.1 3.5 - 5.5 mmol/L LAB CHEMISTRY METHOD 03/23/2025 5:18 PM [facility] Chloride 102 96 - 110 mmol/L LAB CHEMISTRY METHOD 03/23/2025 5:18 PM [facility] CO2 29 21 - 32 mmol/L LAB CHEMISTRY METHOD 03/23/2025 5:18 PM [facility] Anion Gap 5 3 - 11 LAB CHEMISTRY METHOD 03/23/2025 5:18 PM [facility] Glucose 83 70 - 100 mg/dL LAB CHEMISTRY METHOD 03/23/2025 5:18 PM [facility] BUN 8 5 - 25 mg/dL LAB CHEMISTRY METHOD 03/23/2025 5:18 PM [facility] Creatinine 1.00 0.70 - 1.30 mg/dL LAB CHEMISTRY METHOD 03/23/2025 5:18 PM [facility] eGFR 96 >=60 mL/min/1. 73m2 LAB CHEMISTRY METHOD 03/23/2025 5:18 PM [facility] Comment:Calculation based on the Chronic Kidney Disease Epidemiology Collaboration (CKD-EPI) equation refit without adjustment for race. BUN/Creatinine Ratio 8.0 LAB CHEMISTRY METHOD 03/23/2025 5:18 PM EDT [facility] Calcium 9.2 8.5 - 10.5 mg/dL LAB CHEMISTRY METHOD 03/23/2025 5:18 PM EDT [facility] AST (SGOT) 35 10 - 42 unit/L LAB CHEMISTRY METHOD 03/23/2025 5:18 PM T [facility] ALT (SGPT) 61(H) 10 - 60 unit/L LAB CHEMISTRY METHOD 03/23/2025 5:18 PM T [facility] Alkaline Phosphatase 64 42 - 121 unit/L LAB CHEMISTRY METHOD 03/23/2025 5:18 PM [facility] Total Protein 8.7(H) 6.0 - 8.0 g/dL LAB CHEMISTRY METHOD 03/23/2025 5:18 PM EDT [facility] Albumin 3.7 3.2 - 5.0 g/dL LAB CHEMISTRY METHOD 03/23/2025 5:18 PM [facility] Total Bilirubin 0.7 0.0 - 1.4 mg/dL LAB CHEMISTRY METHOD 03/23/2025 5:18 PM T [facility] Blood Venous blood specimen / Unknown Venipuncture / Unknown 03/23/2025 3:06 PM EDT 03/23/2025 4:39 PM EDT Helenaramaddie Dominguez MD LAB BLOOD ORDERABLE S Final Result [facility] [address] [place] [address], from Last 3 Months Insurance [facility] Care Teams Final Cigar And Box Examiner Relationship Specialty Start Date End Date Lexus Sanders MD [address] [place] [address] PCP - General 02/05/01
--- NOTE | 2025-05-07 07:48 | P.CONAN_ITS ---
Documented by User: Lisandra Vazquez NP 05/07/25 07:53 HPI - Anesthesia Eval Consult details Narrative: 44 yr old male c/o evacuation right knee No fevers per pt, only feel sweaty when trying to walk which causing knee pain. No CP, no SOB today; pt states he was out of breath when using his cane and experiencing knee pain. Had work up in ED to r/o PE; negative CTA chest. s/p knee arthroscopy 04/30/25 with [place] PMF[facility] Active Problems Active Problems: All Active Problems (Updated 05/04/25 @ 00:02 by Background Dala) Knee effusion, right (Acute) Chondromalacia patellae of right knee (Acute) Lateral meniscal tear (Acute) Lateral subluxation of patella (Acute) Surgical History Surgical History Hx of hernia repair History of esophagogastroduodenoscopy (EGD) H/O colonoscopy History of Problems with Anesthesia: No Social History Social History Comment: patient using crutches Patient Tobacco Use Status: Never used Tobacco e-Cigarette/Vaping Use: Never Used Use of substances other than those prescribed or required for medical reasons: No Have you been hit, kicked, punched, or otherwise hurt by someone within the past year? If so, by whom?: No Are you DNR?: No Advance Directives: No Advance Directives Information Provided: Yes Meds Allergies Allergy/AdvReac Type Severity Reaction Status Date / Time No Known Allergies (No Known Allergy Verified 05/07/25 11:55 Allergies*) Home Medications ?Medication ?Instructions ?Recorded ?Confirmed ?Last Taken ?Type cetirizine 10 mg capsule (Zyrtec) 10 mg PO DAILY PRN a llergies 04/22/25 05/07/25 Unknown History Exam Pertinent Lab Results Pertinent Lab Results: Laboratory Tests 05/02/25 23:32 WBC 9.4 RBC 4.31 L Hgb 13.8 L Hct 38.9 L Plt Count 518 H Sodium 136 Potassium 4.2 BUN 9 Creatinine 1.05 Assessment and Plan Final Anesthetic Review History of Problems with Anesthesia: No Documented by User: Tyra Vidal MD 05/07/25 12:30 PMFSH Family History Family history of problems with anesthesia: No Surgical History Surgical History Hx of hernia repair History of esophagogastroduodenoscopy (EGD) H/O colonoscopy Social History Social History Comment: patient using crutches Patient Tobacco Use Status: Never used Tobacco e-Cigarette/Vaping Use: Never Used Use of substances other than those prescribed or required for medical reasons: No Have you been hit, kicked, punched, or otherwise hurt by someone within the past year? If so, by whom?: No Are you DNR?: No Advance Directives: No Advance Directives Information Provided: Yes Meds Allergies Allergy/AdvReac Type Severity Reaction Status Date / Time No Known Allergies (No Known Allergy Verified 05/07/25 11:55 Allergies*) Home Medications ?Medication ?Instructions ?Recorded ?Confirmed ?Last Taken ?Type cetirizine 10 mg capsule (Zyrtec) 10 mg PO DAILY PRN a llergies 04/22/25 05/07/25 Unknown History Exam Airway Mallampati Class: II TM Dist: >3cm Neck ROM: Full Heart: rrr Lungs: cta Assessment and Plan Assessment Anesthesia Assessment: Anesthesia Plan Discussed and Chart Reviewed Final Anesthetic Review Family History of Problems with Anesthesia: No NPO: Yes ASA Class: II Final Preanesthetic Review: No Changes in Pt Med Stat, Meds/Allgs Chart Reviewed, Consent Obtained/Reviewed and Anes Risks/Benef Reviewed Patient Risk: Low Procedure Risk: Low Anesthetic Plan Anesthetic Plan: GA Disposition: Standard PACU
[2025-05-07] MEDS: Lactated Ringers 1,000 ML 100 ML IVCONT (11:59)
--- NOTE | 2025-05-07 12:35 | MHC.SHP ---
Pre-Procedural Eval Section A - 24 Hr Update-Section A only Date of Service: 05/07/25 The patient is an INPATIENT: No Changes since office visit: No Cold of Flu in the past 2 weeks, No New Medical Problems, No Changes in Medication and No Patient answered all questions The patient has been examined within 24 hours of the surgical procedure. The History & Physical has been completed within 30 days and I have reviewed it.: Yes Section B - Complete if H&P > 30 days Chief Complaint: Contusion of right knee, initial encounter Allergies: Allergies Allergy/AdvReac Type Severity Reaction Status Date / Time No Known Allergies (No Known Allergy Verified 05/07/25 11:55 Allergies*) Plan I have reviewed the history and physical and performed a pertinent physical examination on my patient. No changes have occurred unless specified. Time Spent With Patient Time: Total time managing care of this patient today ____ minutes.
--- NOTE | 2025-05-07 14:26 | PM.OP ---
Brief Operative Note Date of Service: 05/07/25 Pre-op diagnosis: hematoma right knee Post-op diagnosis: same Procedure: Arthroscopic evacuation of hematoma Implants: none Surgeon: Maco Perez MD Anesthesia: GLMA and local Was an Occupational Nurse used for this Procedure?: No Estimated blood loss (mL): 5 Tourniquet time (min): 0 IV fluids (mL): 500 Pathology: none sent Condition: stable Disposition: PACU
--- NOTE | 2025-05-07 14:27 | P.OP_ITS ---
Operative Note Operative Note Date of Service: 05/07/25 Narrative: Date of Service: 05/07/25 Pre-op diagnosis: hematoma right knee Post-op diagnosis: same Procedure: Arthroscopic evacuation of hematoma right knee Implants: none Surgeon: Maco Perez MD Anesthesia: GLMA and local Was an Lining Strap Closer used for this Procedure?: No Estimated blood loss (mL): 5 Tourniquet time (min): 0 IV fluids (mL): 500 Pathology: none sent Condition: stable Disposition: PACU Procedure in detail: Patient was brought the operating room placed supine on the table and prepped and draped in standard sterile fashion. A time-out was called to identify proper site, proper procedure and proper surgeon. IV antibiotics were administered. I began by making a stab incision through the prior anterolateral incision. Blunt trocar was placed into the patellofemoral joint in extension. The arthroscope was then placed and I began dissection out the hematoma. There was dark blood that was suctioned out. I intermittently insufflated with saline and continued to aspirate. This was slow going as the hematoma was clotted. Therefore I made a stab incision through the prior medial incision inserted a shaver atraumatically into the patellofemoral joint. Under direct visualization I then shaved out the clot in the gutters in the suprapatellar pouch. There was visible deflation of the hematoma. There was no new bleeding appreciated. I then removed all instrumentation and closed the portals with nylon. I injected 30 cc of 0.25% Marcaine with epinephrine in his supra patellar pouch. I then placed sterile dressings and a Neel wrap and mild compression around the knee and the patient was awakened from anesthesia and brought to the recovery room in stable condition. There were no known complications.
== END 2025-05-07 14:35 | disposition home or self-care (01) ==
PROVIDERS: PCP Internal Medicine; Visit Provider Orthopaedic Surgery
PROC: (CPT 29871; principal; 2025-05-07 12:30)
DX: M96.840 Postprocedural hematoma of a musculoskeletal structure following a musculoskeletal system procedure (principal); Y83.8 Other surgical procedures as the cause of abnormal reaction of the patient, or of later complication, without mention of misadventure at the time of the procedure; Y92.9 Unspecified place or not applicable; M25.561 Pain in right knee; R50.9 Fever, unspecified; Z98.890 Other specified postprocedural states
CPT/HCPCS: 29871; J0131; J0165; J0690; J1100; J2003; J2250; J2405; J2704; J2795; J3010

== ENCOUNTER → 2025-05-07 11:23 | Outpatient (BNV) | payer BC, SELFPAY | PROVIDERS: PCP Internal Medicine; Visit Provider Orthopaedic Surgery | DX: S80.01XA Contusion of right knee, initial encounter (principal) | CPT/HCPCS: 29999 ==

== ENCOUNTER 2025-05-10 12:43 | Outpatient (AMB) | payer BC, SELFPAY ==
--- NOTE | 2025-05-10 12:48 | MHC.OFFVIS ---
Intake Visit Reasons: PO RT knee evacuation 05/07/25 NE Intake Note: Dayne is a 44 year old male who presents today for a post operative follow up s/p Right Knee Arthroscopic evacuation of hematoma 05/07/25. Patient reports continued swelling and uncontrolled pain, temp of 102 that begin 05/02/25 and shortness of breath with walking short distances. Allergies No Known Allergies (No Known Allergies*) Allergy (Verified 05/07/25 11:55) HPI HPI PO RT knee evacuation 05/07/25 NE: Details: This is a 44-year-old who is status post hematoma evacuation. He comes in today with recurrent swelling of the right knee. He is better than he was before but still frustrated that he isn't as good as he was immediately after his last surgery. [facility] Surgical History Hx of hernia repair History of esophagogastroduodenoscopy (EGD) H/O colonoscopy Social History Comment: counts correct Patient Tobacco Use Status: Never used Tobacco e-Cigarette/Vaping Use: Never Used Physical Exam Extrem Other: Portals clean dry and intact There is a moderate effusion. No erythema. Dorsalis pulse 2+. Calf supple. Office Procedures Joint Inj/Aspir; Non-Pain Clin Joint Injection/Drain Details: Aspirated 60 mL of serosanguineous fluid Shoulders, Hips, Knees, Knee Large Joint Injection : Right Knee Coding Procedure code (CPT) selection complete Assessment & Plan Assessment & Plan (1) Knee effusion, right: Code(s): M25.461 - Effusion, right knee Category: Medical Plan: Knee effusion status post arthroscopy. 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 Had postop bleeding into the knee which required a hematoma evacuation. Aspirate his knee today and it appears much more synovial than sanguinous and I encouraged him that it is improving albeit slowly. May resume NSAIDs which he will take 800 mg of ibuprofen t.i.d.. I would like to see him back in 1 week's time. I also ordered physical therapy and they will begin to get his quad activated. (2) Status post arthroscopic knee surgery: Code(s): Z98.890 - Other specified postprocedural states Category: Surgical Plan: Orders: Orders PT Evaluation and Treatment Today M25.461 - Effusion, right knee, Z98.890 - Other specified postprocedural states Coding Level of Care Code Global (48493) Diagnoses Knee effusion, right M25.461 Status post arthroscopic knee surgery Z98.890 CPT Codes Shoulders, Hips, Knees, - Knee Large Joint Injection 53394: Right Knee ([id number])
--- OUTSIDE RECORDS SUMMARY | 2025-05-10 13:04 | XMS_ITS | Clinical Summary ---
Author Organization [facility] Address [address] [place] [address] Phone Care Team Providers Care Public Works Inspector Name Role Phone Lexus Sanders MD Primary Care Provider [phone] Allergies Active Allergy Reactions Criticality Noted Date Comments Apple 07/17/2024 nausea Banana 07/17/2024 nausea [place] 07/17/2024 nausea Medications meloxicam (MOBIC) 15 mg [...] Description 03/31/2025 3:45 PM EDT Office Visit 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); IgG lambda monoclonal gammopathy; Chronic hepatitis B ([facility]/HCC V24, [facility]/HCC V28) 03/29/2025 Telephone Orthopedic Surgery [facility] [address] [facility] [address] [place] [address] Lina Gilbert MA Surgery from Last 3 Months Immunizations Name Administration Dates Next Due Hepatitis B (Kfyatuu-Z-Ahvyt , Recombivax HB-Adult) 19yo and older 07/13/2009,02/11/2008,01/14/2008 [...] 4:00 PM EDT Office Visit Adult Medicine [facility] [address] [place] [phone] Elizabeth Carter PA [address] [place] [address] 10/13/2025 3:30 PM EST Office Visit [facility] Hematology Oncology [address] [place] [phone] Ryland Dominguez MD [address] [place] [phone] Health Maintenance Due Date Last Done [...] Procedure Name Priority Date/Time Associated Diagnosis Comments [place] PROTEIN ELECTROPHORETIC FRACTIONATION & QUANTITATION SERUM Routine 03/23/2025 3:06 PM EDT MGUS (monoclonal gammopathy of unknown significance) [place] IMMUNOFIXATION ELECTROPHORESIS SERUM Routine 03/23/2025 3:06 PM [...] Kandi Abel MD 03/24/2025 3:11 PM EDT [facility] Blood Venous blood specimen / Unknown Venipuncture / Unknown 03/23/2025 3:06 PM EDT 03/23/2025 4:39 PM EDT Ryland Dominguez MD LAB BLOOD ORDERABLE S Final Result Performing Organization Address [facility]/ZIP Co de Phone Number [facility] [address] [place] [address], [place] [phone] * PATHOLOGIST REVIEW PROTEIN ELECTROPHORESIS (03/23/2025 3:06 PM EDT) Pathologist [facility] Pathologist Interpretation Reviewed by Kandi Abel MD 03/24/2025 4:55 PM EDT [facility] Blood Venous blood specimen / Unknown Venipuncture / Unknown 03/23/2025 3:06 PM EDT 03/23/2025 4:39 PM EDT us Ryland Dominguez MD LAB BLOOD ORDERABLE S Final Result Performing Organization Address [facility] Co de Phone Number [facility] [address] [place] [address], [place] [phone] * (ABNORMAL) [place]-lambda free light chains, quantitative (03/23/2025 3:06 PM EDT) [place] Free Light Chain 0.82 0.33 - 1.94 mg/dL 03/26/2025 12:46 PM EDT [facility] Lambda Free Light Chain 15.64(H) 0.57 - 2.63 mg/dL 03/26/2025 12:[address] [facility] [place]/Lambda FLC Ratio 0.05(L) 0.26 - 1.65 03/26/2025 12:46 PM EDT [facility] Comment: Test performed at [facility], [address] , [place] [address] Melissa Toledo MD, PhD - Signaler Blood Venous blood specimen / Unknown Venipuncture / Unknown 03/23/2025 3:06 PM EDT 03/23/2025 4:39 PM EDT Ryland Dominguez MD LAB BLOOD ORDERABLE S Final Result [facility] [address] [place] [address] * (ABNORMAL) CBC auto differential (03/23/2025 3:06 PM EDT) WBC 6.3 4.8 - 10.8 K/mcL LAB HEMETOLOGY METHOD 03/23/2025 4:46 PM EDT [facility] RBC 4.50 4.50 - 5.50 M/mcL LAB HEMETOLOGY METHOD 03/23/2025 4:46 PM EDT [facility] Hemoglobin 14.7 13.5 - 17.5 g/dL LAB HEMETOLOGY METHOD 03/23/2025 4:46 PM EDT [facility] Hematocrit 43.5 42.0 - 54.0 % LAB HEMETOLOGY METHOD 03/23/2025 4:46 PM EDT [facility] MCV 97.3 79.0 - 98.0 FL LAB HEMETOLOGY METHOD 03/23/2025 4:46 PM EDT [facility] MCH 32.9(H) 27.0 - 32.0 pcg LAB HEMETOLOGY METHOD 03/23/2025 4:46 PM EDT [facility] MCHC 33.8 32.0 - 37.0 g/dL LAB HEMETOLOGY METHOD 03/23/2025 4:46 PM EDT [facility] RDW 14.4 11.0 - 15.0 % LAB HEMETOLOGY METHOD 03/23/2025 4:46 PM EDT [facility] Platelets 485(H) 130 - 400 K/mcL LAB HEMETOLOGY METHOD 03/23/2025 4:46 PM EDT [facility] MPV 11.2(H) 7.0 - 11.0 FL LAB HEMETOLOGY METHOD 03/23/2025 4:46 [facility] NRBC 0.0 <1.0 % LAB HEMETOLOGY METHOD 03/23/2025 4:46 PM [facility] NRBC Absolute 0.00 <0.10 K/mcL LAB HEMETOLOGY METHOD 03/23/2025 4:46 PM [facility] Neutrophils Relative 57.8 % LAB HEMETOLOGY METHOD 03/23/2025 4:46 PM [facility] Lymphocytes Relative 30.6 % LAB HEMETOLOGY METHOD 03/23/2025 4:46 PM [facility] Monocytes Relative 8.9 % LAB HEMETOLOGY METHOD 03/23/2025 4:46 PM [facility] Eosinophils Relative 1.9 % LAB HEMETOLOGY METHOD 03/23/2025 4:46 PM [facility] Basophils Relative 0.5 % LAB HEMETOLOGY METHOD 03/23/2025 4:46 PM [facility] Immature Granulocytes Relative 0.3 % LAB HEMETOLOGY METHOD 03/23/2025 4:46 PM EDT [facility] Neutrophils Absolute 3.65 1.50 - 7.00 K/mcL LAB HEMETOLOGY METHOD 03/23/2025 4:46 PM [facility] Lymphocytes Absolute 1.93 1.00 - 5.00 K/mcL LAB HEMETOLOGY METHOD 03/23/2025 4:46 PM [facility] Monocytes Absolute 0.56 0.20 - 1.00 K/mcL LAB HEMETOLOGY METHOD 03/23/2025 4:46 PM EDT [facility] Eosinophils Absolute 0.12 0.00 - 0.50 K/mcL LAB HEMETOLOGY METHOD 03/23/2025 4:46 PM EDT [facility] Basophils Absolute 0.03 0.00 - 0.20 K/[facility] LAB HEMETOLOGY METHOD 03/23/2025 4:46 PM EDT [facility] Immature Granulocytes Absolute 0.02 0.00 - 0.03 K/[facility] HEMETOLOGY METHOD 03/23/2025 4:46 PM EDT [facility] Blood Venous blood specimen / Unknown Venipuncture / Unknown 03/23/2025 3:06 PM EDT 03/23/2025 4:39 PM EDT us Ryland Dominguez MD LAB BLOOD ORDERABLE S Final Result Performing Organization Address [facility]/ZIP Co de Phone Number [facility] [address] [place] [address], [place] [phone] * Immunofixation electrophoresis serum (03/23/2025 3:06 PM EDT) [facility] Immunofixation Result, Serum IgG Lambda monoclonal immunoglobulins detected. LAB CHEMISTRY METHOD 03/24/2025 3:11 PM EDT [facility] Blood Venous blood specimen / Unknown Venipuncture / Unknown 03/23/2025 3:06 PM EDT 03/23/2025 4:39 PM EDT Ryland Dominguez MD LAB BLOOD ORDERABLE S Final Result Performing Organization Address City/[facility]/ZIP Co de Phone Number [facility] [address] [place] [address], [place] [phone] * (ABNORMAL) Immunoglobulins IgG, IgA, IgM (03/23/2025 3:06 PM EDT) [facility] Total IgG 3,370(H) 549 - 1,584 mg/dL LAB CHEMISTRY METHOD 03/24/2025 12:28 PM EDT [facility] IgA 32(L) 61 - 348 mg/dL LAB CHEMISTRY METHOD 03/24/2025 12:28 PM EDT [facility] IgM 40 23 - 259 mg/dL LAB CHEMISTRY METHOD 03/24/2025 12:28 PM EDT [facility] Blood Venous blood specimen / Unknown Venipuncture / Unknown 03/23/2025 3:06 PM EDT 03/23/2025 4:39 PM EDT Subphi Dominguez MD LAB BLOOD ORDERABLE S Final Result [facility] [address] [place] [address], * (ABNORMAL) Protein electrophoresis, serum (03/23/2025 3:06 PM EDT) Total Protein 8.7(H) 6.0 - 8.0 g/dL LAB CHEMISTRY METHOD 03/24/2025 4:55 PM EDT [facility] Albumin, Serum 4.0 2.9 - 4.1 g/dL LAB CHEMISTRY METHOD 03/24/2025 4:55 PM EDT [facility] Alpha 1 Globulin (g/dL) 0.2 0.1 - 0.5 g/dL LAB CHEMISTRY METHOD 03/24/2025 4:55 PM EDT [facility] Alpha 2 Globulin (g/dL) 0.8 0.7 - 1.5 g/dL LAB CHEMISTRY METHOD 03/24/2025 4:55 PM EDT [facility] Beta (g/dL) 0.8 0.7 - 1.5 g/dL LAB CHEMISTRY METHOD 03/24/2025 4:55 PM EDT [facility] Gamma Globulin (g/dL) 2.9(H) 0.7 - 1.9 g/dL LAB CHEMISTRY METHOD 03/24/2025 4:55 PM EDT [facility] PARAPROTEIN 1.7 g/dL LAB CHEMISTRY METHOD 03/24/2025 4:55 PM EDT [facility] SPEP Interpretation Monoclonal gammopathy Abnormal pattern with M-spike of gamma globulin mobility. Serum Immunofixation performed on this specimen demonstrated IgG Lambda monoclonal protein. LAB CHEMISTRY METHOD 03/24/2025 4:55 PM EDT [facility] Blood Venous blood specimen / Unknown Venipuncture / Unknown 03/23/2025 3:06 PM EDT 03/23/2025 4:39 PM EDT us Ryland Dominguez MD LAB BLOOD ORDERABLE S Final Result Performing Organization Address [facility]/ZIP Co de Phone Number [facility] [address] [place] [address], [place] [phone] * (ABNORMAL) Protein, total (03/23/2025 3:06 PM EDT) Total Protein 8.7(H) 6.0 - 8.0 g/dL LAB CHEMISTRY METHOD 03/23/2025 4:58 PM EDT [facility] Blood Venous blood specimen / Unknown Venipuncture / Unknown 03/23/2025 3:06 PM EDT 03/23/2025 4:39 PM EDT us Ryland Dominguez MD LAB BLOOD ORDERABLE S Final Result Performing Organization Address City/[facility]/ZIP Co de Phone Number [facility] [address] [place] [address], [place] [phone] * Lactate dehydrogenase (03/23/2025 3:06 PM EDT) LDH 197 120 - 246 unit/L LAB CHEMISTRY METHOD 03/23/2025 5:06 PM EDT [facility] Blood Venous blood specimen / Unknown Venipuncture / Unknown 03/23/2025 3:06 PM EDT 03/23/2025 4:39 PM EDT Ryland Dominguez MD LAB BLOOD ORDERABLE S Final Result [facility] [address] [place] [address], [place] [phone] * (ABNORMAL) Comprehensive metabolic panel (03/23/2025 3:06 PM EDT) Sodium 136 133 - 145 mmol/L LAB CHEMISTRY METHOD 03/23/2025 5:18 PM [facility] Potassium 4.1 3.5 - 5.5 mmol/L LAB CHEMISTRY METHOD 03/23/2025 5:18 PM [facility] Chloride 102 96 - 110 mmol/L LAB CHEMISTRY METHOD 03/23/2025 5:18 PM [facility] CO2 29 21 - 32 mmol/L LAB CHEMISTRY METHOD 03/23/2025 5:18 PM [facility] Anion Gap 5 3 - 11 LAB CHEMISTRY METHOD 03/23/2025 5:18 PM [facility] Glucose 83 70 - 100 mg/dL LAB CHEMISTRY METHOD 03/23/2025 5:18 PM [facility] BUN 8 5 - 25 mg/dL LAB CHEMISTRY METHOD 03/23/2025 5:18 PM [facility] Creatinine 1.00 0.70 - 1.30 mg/dL LAB CHEMISTRY METHOD 03/23/2025 5:18 PM [facility] eGFR 96 >=60 mL/min/1. 73m2 LAB CHEMISTRY METHOD 03/23/2025 5:18 PM [facility] Comment:Calculation based on the Chronic Kidney Disease Epidemiology Collaboration (CKD-EPI) equation refit without adjustment for race. BUN/Creatinine Ratio 8.0 LAB CHEMISTRY METHOD 03/23/2025 5:18 PM EDT [facility] Calcium 9.2 8.5 - 10.5 mg/dL LAB CHEMISTRY METHOD 03/23/2025 5:18 PM EDT [facility] AST (SGOT) 35 10 - 42 unit/L LAB CHEMISTRY METHOD 03/23/2025 5:18 PM T [facility] ALT (SGPT) 61(H) 10 - 60 unit/L LAB CHEMISTRY METHOD 03/23/2025 5:18 PM T [facility] Alkaline Phosphatase 64 42 - 121 unit/L LAB CHEMISTRY METHOD 03/23/2025 5:18 PM [facility] Total Protein 8.7(H) 6.0 - 8.0 g/dL LAB CHEMISTRY METHOD 03/23/2025 5:18 PM EDT [facility] Albumin 3.7 3.2 - 5.0 g/dL LAB CHEMISTRY METHOD 03/23/2025 5:18 PM [facility] Total Bilirubin 0.7 0.0 - 1.4 mg/dL LAB CHEMISTRY METHOD 03/23/2025 5:18 PM T [facility] Blood Venous blood specimen / Unknown Venipuncture / Unknown 03/23/2025 3:06 PM EDT 03/23/2025 4:39 PM EDT Helenaramaddie Dominguez MD LAB BLOOD ORDERABLE S Final Result [facility] [address] [place] [address], from Last 3 Months Insurance [facility] Care Teams Public Works Inspector Relationship Specialty Start Date End Date Lexus Sanders MD [address] [place] [address] PCP - General 02/05/01
--- OUTSIDE RECORDS SUMMARY | 2025-05-10 13:04 | XMS_ITS | Clinical Summary ---
Author Organization [facility] Address [address] [place] [address] Care Team Providers Care Vice President Global Digital Marketing Name Role Phone Lexus Sanders MD Primary Care Provider [phone] Allergies No known active allergies Medications Medication [...] age to complete this topic Care Teams Vice President Global Digital Marketing Relationship Specialty Start Date End Date Lexus Sanders MD PCP - General Internal Medicine 02/14/24
== END 2025-05-10 13:39 | disposition home or self-care (01) ==
LOC: HO.HOS 12:44
PROVIDERS: PCP Internal Medicine; Visit Provider Orthopaedic Surgery
DX: M25.461 Effusion, right knee (principal); Z98.890 Other specified postprocedural states
CPT/HCPCS: 20610; 99024

== ENCOUNTER → 2025-05-10 12:43 | Outpatient (BNVA) | payer BC, SELFPAY | PROVIDERS: PCP Internal Medicine; Visit Provider Orthopaedic Surgery | DX: M25.561 Pain in right knee (principal); Z98.890 Other specified postprocedural states | CPT/HCPCS: 20610 ==

== ENCOUNTER 2025-05-17 11:17 | Outpatient (AMB) | payer BC, SELFPAY ==
--- NOTE | 2025-05-17 11:45 | A.OFFVIS_ITS ---
Intake Visit Reasons: PO - Right Knee Evacuation 05/07/25 Intake Note: Dayne is a 44 year old male who presents today for a post operative follow up s/p Right Knee Arthroscopic evacuation of hematoma 05/07/25. Last seen in office on 05/10 presenting with knee effusion - aspiration was done showed synovial fluid rather than blood. Was seen with PT on 05/14. Allergies No Known Allergies (No Known Allergies*) Allergy (Verified 05/17/25 11:45) HPI HPI PO - Right Knee Evacuation 05/07/25: Details: To we status post lateral release chondroplasty complicated by postoperative effusion in the hematoma. This required an additional washout. There has been no evidence of infection and he continues to improve albeit slowly. He has difficulty sleeping. He has started physical therapy. [facility] Surgical History Hx of hernia repair History of esophagogastroduodenoscopy (EGD) H/O colonoscopy Social History Comment: counts correct Patient Tobacco Use Status: Never used Tobacco e-Cigarette/Vaping Use: Never Used Physical Exam Extrem Other: On physical exam he has a moderate effusion. His quad is firing and he is able to engage his patella but he still can not straight leg raise. Office Procedures Joint Inj/Aspir; Non-Pain Clin Joint Injection/Drain Details: Aspirated 40 cc of serosanguineous fluid, largely normal in appearance with minimal blood. Shoulders, Hips, Knees, Knee Large Joint Injection 15913: Right Knee Coding Procedure code (CPT) selection complete Assessment & Plan Assessment & Plan (1) Chondromalacia patellae of right knee: Code(s): M22.41 - Chondromalacia patellae, right knee Category: Medical Plan: Advanced chondromalacia status post lateral release. His quad is waking up. I am trying to get him a ice compression device. In addition he is working with physical therapy. Aspirated normal-appearing joint fluid. Continue quad engaging exercises and gentle weight-bearing as tolerated. I will see him back on Saturday for re-evaluation. (2) Knee effusion, right: Code(s): M25.461 - Effusion, right knee Category: Medical Plan: Coding Level of Care Code Global (52638) Diagnoses Chondromalacia patellae of right knee M22.41 Knee effusion, right M25.461 CPT Codes Shoulders, Hips, Knees, - Knee Large Joint Injection : Right Knee ([id number])
--- OUTSIDE RECORDS SUMMARY | 2025-05-17 11:58 | XMS_ITS | Clinical Summary ---
Author Organization [facility] Address [address] [place] [address] Care Team Providers Care Mucking Machine Operator Name Role Phone Lexus Sanders MD Primary Care Provider [phone] Allergies No known active allergies Medications Medication [...] age to complete this topic Care Teams Mucking Machine Operator Relationship Specialty Start Date End Date Lexus Sanders MD PCP - General Internal Medicine 02/14/24
--- OUTSIDE RECORDS SUMMARY | 2025-05-17 11:58 | XMS_ITS | Clinical Summary ---
Author Organization [facility] Address [address] [place] [address] Phone Care Team Providers Care Quality Assurance Qa Lab Analyst Name Role Phone Lexus Sanders MD Primary Care Provider [phone] Allergies Active Allergy Reactions Criticality Noted Date Comments Apple 07/17/2024 nausea Banana 07/17/2024 nausea [place] 07/17/2024 nausea Medications meloxicam (MOBIC) 15 mg [...] Description 03/31/2025 3:45 PM EDT Office Visit 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); IgG lambda monoclonal gammopathy; Chronic hepatitis B ([facility]/HCC V24, [facility]/HCC V28) 03/29/2025 Telephone Orthopedic Surgery [facility] [address] [facility] [address] [place] [address] Lina Gilbert MA Surgery from Last 3 Months Immunizations Name Administration Dates Next Due Hepatitis B (Eiknazi-G-Wncdb , Recombivax HB-Adult) 19yo and older 07/13/2009,02/11/2008,01/14/2008 [...] 4:00 PM EDT Office Visit Adult Medicine [facility] [address] [place] [phone] Elizabeth Carter PA [address] [place] [address] 10/13/2025 3:30 PM EST Office Visit [facility] Hematology Oncology [address] [place] [phone] Ryland Dominguez MD [address] [place] [phone] Health Maintenance Due Date Last Done [...] Procedure Name Priority Date/Time Associated Diagnosis Comments OR PROTEIN ELECTROPHORETIC FRACTIONATION & QUANTITATION SERUM Routine 03/23/2025 3:06 PM EDT MGUS (monoclonal gammopathy of unknown significance) OR IMMUNOFIXATION ELECTROPHORESIS SERUM Routine 03/23/2025 3:06 PM [...] Kandi Abel MD 03/24/2025 3:11 PM EDT [facility] Blood Venous blood specimen / Unknown Venipuncture / Unknown 03/23/2025 3:06 PM EDT 03/23/2025 4:39 PM EDT Ryland Dominguez MD LAB BLOOD ORDERABLE S Final Result Performing Organization Address [facility]/ZIP Co de Phone Number [facility] [address] [place] [address], [place] [phone] * PATHOLOGIST REVIEW PROTEIN ELECTROPHORESIS (03/23/2025 3:06 PM EDT) Pathologist [facility] Pathologist Interpretation Reviewed by Kandi Abel MD 03/24/2025 4:55 PM EDT [facility] Blood Venous blood specimen / Unknown Venipuncture / Unknown 03/23/2025 3:06 PM EDT 03/23/2025 4:39 PM EDT us Ryland Dominguez MD LAB BLOOD ORDERABLE S Final Result Performing Organization Address [facility] Co de Phone Number [facility] [address] [place] [address], [place] [phone] * (ABNORMAL) Harman-lambda free light chains, quantitative (03/23/2025 3:06 PM EDT) Harman Free Light Chain 0.82 0.33 - 1.94 mg/dL 03/26/2025 12:46 PM EDT [facility] Lambda Free Light Chain 15.64(H) 0.57 - 2.63 mg/dL 03/26/2025 12:46 PM EDT [facility] Harman/Lambda FLC Ratio 0.05(L) 0.26 - 1.65 03/26/2025 12:46 PM EDT [facility] Comment: Test performed at [facility], [address] , [place] [address] Melissa Toledo MD, PhD - Blood Bank Custodian Blood Venous blood specimen / Unknown Venipuncture / Unknown 03/23/2025 3:06 PM EDT 03/23/2025 4:39 PM EDT Ryland Dominguez MD LAB BLOOD ORDERABLE S Final Result [facility] [address] [place] [address] * (ABNORMAL) CBC auto differential (03/23/2025 3:06 PM EDT) WBC 6.3 4.8 - 10.8 K/mcL LAB HEMETOLOGY METHOD 03/23/2025 4:46 PM EDT [facility] RBC 4.50 4.50 - 5.50 M/mcL LAB HEMETOLOGY METHOD 03/23/2025 4:46 PM EDT [facility] Hemoglobin 14.7 13.5 - 17.5 g/dL LAB HEMETOLOGY METHOD 03/23/2025 4:46 PM EDT [facility] Hematocrit 43.5 42.0 - 54.0 % LAB HEMETOLOGY METHOD 03/23/2025 4:46 PM EDT [facility] MCV 97.3 79.0 - 98.0 FL LAB HEMETOLOGY METHOD 03/23/2025 4:46 PM EDT [facility] MCH 32.9(H) 27.0 - 32.0 pcg LAB HEMETOLOGY METHOD 03/23/2025 4:46 PM EDT [facility] MCHC 33.8 32.0 - 37.0 g/dL LAB HEMETOLOGY METHOD 03/23/2025 4:46 PM EDT [facility] RDW 14.4 11.0 - 15.0 % LAB HEMETOLOGY METHOD 03/23/2025 4:46 PM EDT [facility] Platelets 485(H) 130 - 400 K/mcL LAB HEMETOLOGY METHOD 03/23/2025 4:46 PM EDT [facility] MPV 11.2(H) 7.0 - 11.0 FL LAB HEMETOLOGY METHOD 03/23/2025 4:[facility] NRBC 0.0 <1.0 % LAB HEMETOLOGY METHOD 03/23/2025 4:46 PM [facility] NRBC Absolute 0.00 <0.10 K/mcL LAB HEMETOLOGY METHOD 03/23/2025 4:46 PM [facility] Neutrophils Relative 57.8 % LAB HEMETOLOGY METHOD 03/23/2025 4:46 PM [facility] Lymphocytes Relative 30.6 % LAB HEMETOLOGY METHOD 03/23/2025 4:46 PM [facility] Monocytes Relative 8.9 % LAB HEMETOLOGY METHOD 03/23/2025 4:46 PM [facility] Eosinophils Relative 1.9 % LAB HEMETOLOGY METHOD 03/23/2025 4:46 PM [facility] Basophils Relative 0.5 % LAB HEMETOLOGY METHOD 03/23/2025 4:46 PM [facility] Immature Granulocytes Relative 0.3 % LAB HEMETOLOGY METHOD 03/23/2025 4:46 PM EDT [facility] Neutrophils Absolute 3.65 1.50 - 7.00 K/mcL LAB HEMETOLOGY METHOD 03/23/2025 4:46 PM [facility] Lymphocytes Absolute 1.93 1.00 - 5.00 K/mcL LAB HEMETOLOGY METHOD 03/23/2025 4:46 PM [facility] Monocytes Absolute 0.56 0.20 - 1.00 K/mcL LAB HEMETOLOGY METHOD 03/23/2025 4:46 PM EDT [facility] Eosinophils Absolute 0.12 0.00 - 0.50 K/mcL LAB HEMETOLOGY METHOD 03/23/2025 4:46 PM EDT [facility] Basophils Absolute 0.03 0.00 - 0.20 K/[facility] LAB HEMETOLOGY METHOD 03/23/2025 4:46 PM EDT [facility] Immature Granulocytes Absolute 0.02 0.00 - 0.03 K/[facility] HEMETOLOGY METHOD 03/23/2025 4:46 PM EDT [facility] Blood Venous blood specimen / Unknown Venipuncture / Unknown 03/23/2025 3:06 PM EDT 03/23/2025 4:39 PM EDT us Ryland Dominguez MD LAB BLOOD ORDERABLE S Final Result Performing Organization Address [facility]/ZIP Co de Phone Number [facility] [address] [place] [address], [place] [phone] * Immunofixation electrophoresis serum (03/23/2025 3:06 PM EDT) [facility] Immunofixation Result, Serum IgG Lambda monoclonal immunoglobulins detected. LAB CHEMISTRY METHOD 03/24/2025 3:11 PM EDT [facility] Blood Venous blood specimen / Unknown Venipuncture / Unknown 03/23/2025 3:06 PM EDT 03/23/2025 4:39 PM EDT Ryland Dominguez MD LAB BLOOD ORDERABLE S Final Result Performing Organization Address City/[facility]/ZIP Co de Phone Number [facility] [address] [place] [address], [place] [phone] * (ABNORMAL) Immunoglobulins IgG, IgA, IgM (03/23/2025 3:06 PM EDT) [facility] Total IgG 3,370(H) 549 - 1,584 mg/dL LAB CHEMISTRY METHOD 03/24/2025 12:28 PM EDT [facility] IgA 32(L) 61 - 348 mg/dL LAB CHEMISTRY METHOD 03/24/2025 12:28 PM EDT [facility] IgM 40 23 - 259 mg/dL LAB CHEMISTRY METHOD 03/24/2025 12:28 PM EDT [facility] Blood Venous blood specimen / Unknown Venipuncture / Unknown 03/23/2025 3:06 PM EDT 03/23/2025 4:39 PM EDT Subphi Dominguez MD LAB BLOOD ORDERABLE S Final Result [facility] [address] [place] [address], * (ABNORMAL) Protein electrophoresis, serum (03/23/2025 3:06 PM EDT) Total Protein 8.7(H) 6.0 - 8.0 g/dL LAB CHEMISTRY METHOD 03/24/2025 4:55 PM EDT [facility] Albumin, Serum 4.0 2.9 - 4.1 g/dL LAB CHEMISTRY METHOD 03/24/2025 4:55 PM EDT [facility] Alpha 1 Globulin (g/dL) 0.2 0.1 - 0.5 g/dL LAB CHEMISTRY METHOD 03/24/2025 4:55 PM EDT [facility] Alpha 2 Globulin (g/dL) 0.8 0.7 - 1.5 g/dL LAB CHEMISTRY METHOD 03/24/2025 4:55 PM EDT [facility] Beta (g/dL) 0.8 0.7 - 1.5 g/dL LAB CHEMISTRY METHOD 03/24/2025 4:55 PM EDT [facility] Gamma Globulin (g/dL) 2.9(H) 0.7 - 1.9 g/dL LAB CHEMISTRY METHOD 03/24/2025 4:55 PM EDT [facility] PARAPROTEIN 1.7 g/dL LAB CHEMISTRY METHOD 03/24/2025 4:55 PM EDT [facility] SPEP Interpretation Monoclonal gammopathy Abnormal pattern with M-spike of gamma globulin mobility. Serum Immunofixation performed on this specimen demonstrated IgG Lambda monoclonal protein. LAB CHEMISTRY METHOD 03/24/2025 4:55 PM EDT [facility] Blood Venous blood specimen / Unknown Venipuncture / Unknown 03/23/2025 3:06 PM EDT 03/23/2025 4:39 PM EDT us Ryland Dominguez MD LAB BLOOD ORDERABLE S Final Result Performing Organization Address [facility]/ZIP Co de Phone Number [facility] [address] [place] [address], [place] [phone] * (ABNORMAL) Protein, total (03/23/2025 3:06 PM EDT) Total Protein 8.7(H) 6.0 - 8.0 g/dL LAB CHEMISTRY METHOD 03/23/2025 4:58 PM EDT [facility] Blood Venous blood specimen / Unknown Venipuncture / Unknown 03/23/2025 3:06 PM EDT 03/23/2025 4:39 PM EDT us Ryland Dominguez MD LAB BLOOD ORDERABLE S Final Result Performing Organization Address City/[facility]/ZIP Co de Phone Number [facility] [address] [place] [address], [place] [phone] * Lactate dehydrogenase (03/23/2025 3:06 PM EDT) LDH 197 120 - 246 unit/L LAB CHEMISTRY METHOD 03/23/2025 5:06 PM EDT [facility] Blood Venous blood specimen / Unknown Venipuncture / Unknown 03/23/2025 3:06 PM EDT 03/23/2025 4:39 PM EDT Ryland Dominguez MD LAB BLOOD ORDERABLE S Final Result [facility] [address] [place] [address], [place] [phone] * (ABNORMAL) Comprehensive metabolic panel (03/23/2025 3:06 PM EDT) Sodium 136 133 - 145 mmol/L LAB CHEMISTRY METHOD 03/23/2025 5:18 PM [facility] Potassium 4.1 3.5 - 5.5 mmol/L LAB CHEMISTRY METHOD 03/23/2025 5:18 PM [facility] Chloride 102 96 - 110 mmol/L LAB CHEMISTRY METHOD 03/23/2025 5:18 PM [facility] CO2 29 21 - 32 mmol/L LAB CHEMISTRY METHOD 03/23/2025 5:18 PM [facility] Anion Gap 5 3 - 11 LAB CHEMISTRY METHOD 03/23/2025 5:18 PM [facility] Glucose 83 70 - 100 [...] LAB CHEMISTRY METHOD 03/23/2025 5:18 PM EDT [facility] Calcium 9.2 8.5 - 10.5 mg/dL LAB CHEMISTRY METHOD 03/23/2025 5:18 PM EDT [facility] AST (SGOT) 35 10 - 42 unit/L LAB CHEMISTRY METHOD 03/23/2025 5:18 PM T [facility] ALT (SGPT) 61(H) 10 - 60 unit/L LAB CHEMISTRY METHOD 03/23/2025 5:18 PM T [facility] Alkaline Phosphatase 64 42 - 121 unit/L LAB CHEMISTRY METHOD 03/23/2025 5:18 PM [facility] Total Protein 8.7(H) 6.0 - 8.0 g/dL LAB CHEMISTRY METHOD 03/23/2025 5:18 PM EDT [facility] Albumin 3.7 3.2 - 5.0 g/dL LAB CHEMISTRY METHOD 03/23/2025 5:18 PM [facility] Total Bilirubin 0.7 0.0 - 1.4 mg/dL LAB CHEMISTRY METHOD 03/23/2025 5:18 PM T [facility] Blood Venous blood specimen / Unknown Venipuncture / Unknown 03/23/2025 3:06 PM EDT 03/23/2025 4:39 PM EDT Helenaramaddie Dominguez MD LAB BLOOD ORDERABLE S Final Result [facility] [address] [place] [address], from Last 3 Months Insurance [facility] Care Teams Quality Assurance Qa Lab Analyst Relationship Specialty Start Date End Date Lexus Sanders MD [address] [place] [address] PCP - General 02/05/01
== END 2025-05-17 12:08 | disposition home or self-care (01) ==
LOC: HO.HOS 11:18
PROVIDERS: PCP Internal Medicine; Visit Provider Orthopaedic Surgery
DX: M22.41 Chondromalacia patellae, right knee (principal); M25.461 Effusion, right knee
CPT/HCPCS: 20610; 99024

== ENCOUNTER → 2025-05-17 11:17 | Outpatient (BNVA) | payer BC, SELFPAY | PROVIDERS: PCP Internal Medicine; Visit Provider Orthopaedic Surgery | DX: M22.41 Chondromalacia patellae, right knee (principal); M25.461 Effusion, right knee | CPT/HCPCS: 20610 ==

== ENCOUNTER 2025-05-21 08:21 | Outpatient (AMB) | payer BC, SELFPAY ==
--- NOTE | 2025-05-21 08:24 | MHC.OFFVIS ---
Intake Visit Reasons: PO - Right Knee Evacuation 05/07/25 ok per [place] Intake Note: Dayne is a 44 year old male who presents today for a post operative follow up s/p Right Knee Arthroscopic evacuation of hematoma 05/07/25. Allergies No Known Allergies (No Known Allergies*) Allergy (Verified 05/21/25 08:24) HPI HPI PO - Right Knee Evacuation 05/07/25 ok per NE: Details: Dayne is a 44 yo who returns for right knee evaluation. He feels better and is able to move his knee comfortably. He still has some pateral knee pain which si to be expected. PFSH Surgical History Hx of hernia repair History of esophagogastroduodenoscopy (EGD) H/O colonoscopy Social History Comment: counts correct Patient Tobacco Use Status: Never used Tobacco e-Cigarette/Vaping Use: Never Used Physical Exam Extrem Other: Min effusion intact extensor mechanism quad firing and can SLR 0-125 Assessment & Plan Assessment & Plan (1) Chondromalacia patellae of right knee: Code(s): M22.41 - Chondromalacia patellae, right knee Category: Medical Plan: (2) Lateral meniscal tear: Code(s): S83.289A - Other tear of lateral meniscus, current injury, unspecified knee, initial encounter Category: Medical Plan: (3) Status post arthroscopic knee surgery: Code(s): Z98.890 - Other specified postprocedural states Category: Surgical Plan: Doing better and can see me back in 2 weeks. Cont PT, NSAIDs, cold compression Coding Level of Care Code Global (90314) Diagnoses Chondromalacia patellae of right knee M22.41 Lateral meniscal tear S83.289A Status post arthroscopic knee surgery Z98.890
--- OUTSIDE RECORDS SUMMARY | 2025-05-21 08:27 | XMS_ITS | Clinical Summary ---
Author Organization [facility] Address [address] [place] [address] Phone Care Team Providers Care Pressurization Mechanic Name Role Phone Lexus Sanders MD Primary Care Provider [phone] Allergies Active Allergy Reactions Criticality Noted Date Comments Apple 07/17/2024 nausea Banana 07/17/2024 nausea Rathdrum 07/17/2024 nausea Medications meloxicam (MOBIC) 15 mg [...] Description 03/31/2025 3:45 PM EDT Office Visit [facility] Hematology Oncology [address] [place] [address] Ryland Tovar MD MGUS (monoclonal gammopathy of unknown significance) (Primary Dx); IgG lambda monoclonal gammopathy; Chronic hepatitis B ([facility]/HCC V24, [facility]/HCC V28) 03/29/2025 Telephone Orthopedic Surgery [facility] [address] [facility] [address] [place] [address] Lina Gilbert MA Surgery from Last 3 Months Immunizations Name Administration Dates Next Due Hepatitis B (Xlmuele-H-Myouc , Recombivax HB-Adult) 19yo and older 07/13/2009,02/11/2008,01/14/2008 [...] 4:00 PM EDT Office Visit Adult Medicine [facility] [address] [place] [phone] Elizabeth Carter PA [address] [place] [address] 10/13/2025 3:30 PM EST Office Visit [facility] Hematology Oncology [address] [place] [phone] Ryland Dominguez MD [address] [place] [phone] Health Maintenance Due Date Last Done [...] Procedure Name Priority Date/Time Associated Diagnosis Comments NE PROTEIN ELECTROPHORETIC FRACTIONATION & QUANTITATION SERUM Routine 03/23/2025 3:06 PM EDT MGUS (monoclonal gammopathy of unknown significance) NE IMMUNOFIXATION ELECTROPHORESIS SERUM Routine 03/23/2025 3:06 PM [...] Kandi Abel MD 03/24/2025 3:11 PM EDT [facility] Blood Venous blood specimen / Unknown Venipuncture / Unknown 03/23/2025 3:06 PM EDT 03/23/2025 4:39 PM EDT Ryland Dominguez MD LAB BLOOD ORDERABLE S Final Result Performing Organization Address [facility]/ZIP Co de Phone Number [facility] [address] [place] [address], [place] [phone] * PATHOLOGIST REVIEW PROTEIN ELECTROPHORESIS (03/23/2025 3:06 PM EDT) Pathologist [facility] Pathologist Interpretation Reviewed by Kandi Abel MD 03/24/2025 4:55 PM EDT [facility] Blood Venous blood specimen / Unknown Venipuncture / Unknown 03/23/2025 3:06 PM EDT 03/23/2025 4:39 PM EDT us Ryland Dominguez MD LAB BLOOD ORDERABLE S Final Result Performing Organization Address [facility] Co de Phone Number [facility] [address] [place] [address], [place] [phone] * (ABNORMAL) Geiger-lambda free light chains, quantitative (03/23/2025 3:06 PM EDT) Geiger Free Light Chain 0.82 0.33 - 1.94 mg/dL 03/26/2025 12:46 PM EDT [facility] Lambda Free Light Chain 15.64(H) 0.57 - 2.63 mg/dL 03/26/2025 12:46 PM EDT [facility] Geiger/Lambda FLC Ratio 0.05(L) 0.26 - 1.65 03/26/2025 12:46 PM EDT [facility] Comment: Test performed at [facility], [address] , [place] [address] Melissa Toledo MD, PhD - Strip Winder Blood Venous blood specimen / Unknown Venipuncture / Unknown 03/23/2025 3:06 PM EDT 03/23/2025 4:39 PM EDT Ryland Dominguez MD LAB BLOOD ORDERABLE S Final Result [facility] [address] [place] [address] * (ABNORMAL) CBC auto differential (03/23/2025 3:06 PM EDT) WBC 6.3 4.8 - 10.8 K/mcL LAB HEMETOLOGY METHOD 03/23/2025 4:46 PM EDT [facility] RBC 4.50 4.50 - 5.50 M/mcL LAB HEMETOLOGY METHOD 03/23/2025 4:46 PM EDT [facility] Hemoglobin 14.7 13.5 - 17.5 g/dL LAB HEMETOLOGY METHOD 03/23/2025 4:46 PM EDT [facility] Hematocrit 43.5 42.0 - 54.0 % LAB HEMETOLOGY METHOD 03/23/2025 4:46 PM EDT [facility] MCV 97.3 79.0 - 98.0 FL LAB HEMETOLOGY METHOD 03/23/2025 4:46 PM EDT [facility] MCH 32.9(H) 27.0 - 32.0 pcg LAB HEMETOLOGY METHOD 03/23/2025 4:46 PM EDT [facility] MCHC 33.8 32.0 - 37.0 g/dL LAB HEMETOLOGY METHOD 03/23/2025 4:46 PM EDT [facility] RDW 14.4 11.0 - 15.0 % LAB HEMETOLOGY METHOD 03/23/2025 4:46 PM EDT [facility] Platelets 485(H) 130 - 400 K/mcL LAB HEMETOLOGY METHOD 03/23/2025 4:46 PM EDT [facility] MPV 11.2(H) 7.0 - 11.0 FL LAB HEMETOLOGY METHOD 03/23[facility]2025 [facility] NRBC 0.0 <1.0 % LAB HEMETOLOGY METHOD 03/23[facility]2025 4:[facility] NRBC Absolute 0.00 <0.10 K/mcL LAB HEMETOLOGY METHOD 03/23/2025 4:[facility] Neutrophils Relative 57.8 % LAB HEMETOLOGY METHOD 03/23/2025 4:46 PM [facility] Lymphocytes Relative 30.6 % LAB HEMETOLOGY METHOD 03/23/2025 4:[facility] Monocytes Relative 8.9 % LAB HEMETOLOGY METHOD 03/23/2025 4:46 PM [facility] Eosinophils Relative 1.9 % LAB HEMETOLOGY METHOD 03/23/2025 4:46 PM [facility] Basophils Relative 0.5 % LAB HEMETOLOGY METHOD 03/23/2025 4:46 PM [facility] Immature Granulocytes Relative 0.3 % LAB HEMETOLOGY METHOD 03/23/2025 4:46 PM EDT [facility] Neutrophils Absolute 3.65 1.50 - 7.00 K/mcL LAB HEMETOLOGY METHOD 03/23/2025 4:[facility] Lymphocytes Absolute 1.93 1.00 - 5.00 K/mcL LAB HEMETOLOGY METHOD 03/23/2025 4:[facility] Monocytes Absolute 0.56 0.20 - 1.00 K/mcL LAB HEMETOLOGY METHOD 03/23/2025 4:46 PM EDT [facility] Eosinophils Absolute 0.12 0.00 - 0.50 K/mcL LAB HEMETOLOGY METHOD 03/23/2025 4:46 PM EDT [facility] Basophils Absolute 0.03 0.00 - 0.20 K/[facility] LAB HEMETOLOGY METHOD 03/23/2025 4:46 PM EDT [facility] Immature Granulocytes Absolute 0.02 0.00 - 0.03 K/[facility] LAB HEMETOLOGY METHOD 03/23/2025 4:46 PM EDT [facility] Blood Venous blood specimen / Unknown Venipuncture / Unknown 03/23/2025 3:06 PM EDT 03/23/2025 4:39 PM EDT us Ryland Dominguez MD LAB BLOOD ORDERABLE S Final Result Performing Organization Address [facility]/ZIP Co de Phone Number [facility] [address] [place] [address], [place] [phone] * Immunofixation electrophoresis serum (03/23/2025 3:06 PM EDT) [facility] Immunofixation Result, Serum IgG Lambda monoclonal immunoglobulins detected. LAB CHEMISTRY METHOD 03/24/2025 3:11 PM EDT [facility] Blood Venous blood specimen / Unknown Venipuncture / Unknown 03/23/2025 3:06 PM EDT 03/23/2025 4:39 PM EDT Ryland Dominguez MD LAB BLOOD ORDERABLE S Final Result Performing Organization Address City/[facility]/ZIP Co de Phone Number [facility] [address] [place] [address], [place] [phone] * (ABNORMAL) Immunoglobulins IgG, IgA, IgM (03/23/2025 3:06 PM EDT) [facility] Total IgG 3,370(H) 549 - 1,584 mg/dL LAB CHEMISTRY METHOD 03/24/2025 12:28 PM EDT [facility] IgA 32(L) 61 - 348 mg/dL LAB CHEMISTRY METHOD 03/24/2025 12:28 PM EDT [facility] IgM 40 23 - 259 mg/dL LAB CHEMISTRY METHOD 03/24/2025 12:28 PM EDT [facility] Blood Venous blood specimen / Unknown Venipuncture / Unknown 03/23/2025 3:06 PM EDT 03/23/2025 4:39 PM EDT Subphi Dominguez MD LAB BLOOD ORDERABLE S Final Result [facility] [address] [place] [address], * (ABNORMAL) Protein electrophoresis, serum (03/23/2025 3:06 PM EDT) Total Protein 8.7(H) 6.0 - 8.0 g/dL LAB CHEMISTRY METHOD 03/24/2025 4:55 PM EDT [facility] Albumin, Serum 4.0 2.9 - 4.1 g/dL LAB CHEMISTRY METHOD 03/24/2025 4:55 PM EDT [facility] Alpha 1 Globulin (g/dL) 0.2 0.1 - 0.5 g/dL LAB CHEMISTRY METHOD 03/24/2025 4:55 PM EDT [facility] Alpha 2 Globulin (g/dL) 0.8 0.7 - 1.5 g/dL LAB CHEMISTRY METHOD 03/24/2025 4:55 PM EDT [facility] Beta (g/dL) 0.8 0.7 - 1.5 g/dL LAB CHEMISTRY METHOD 03/24/2025 4:55 PM EDT [facility] Gamma Globulin (g/dL) 2.9(H) 0.7 - 1.9 g/dL LAB CHEMISTRY METHOD 03/24/2025 4:55 PM EDT [facility] PARAPROTEIN 1.7 g/dL LAB CHEMISTRY METHOD 03/24/2025 4:55 PM EDT [facility] SPEP Interpretation Monoclonal gammopathy Abnormal pattern with M-spike of gamma globulin mobility. Serum Immunofixation performed on this specimen demonstrated IgG Lambda monoclonal protein. LAB CHEMISTRY METHOD 03/24/2025 4:55 PM EDT [facility] Blood Venous blood specimen / Unknown Venipuncture / Unknown 03/23/2025 3:06 PM EDT 03/23/2025 4:39 PM EDT us Ryland Dominguez MD LAB BLOOD ORDERABLE S Final Result Performing Organization Address [facility]/ZIP Co de Phone Number [facility] [address] [place] [address], [place] [phone] * (ABNORMAL) Protein, total (03/23/2025 3:06 PM EDT) Total Protein 8.7(H) 6.0 - 8.0 g/dL LAB CHEMISTRY METHOD 03/23/2025 4:58 PM EDT [facility] Blood Venous blood specimen / Unknown Venipuncture / Unknown 03/23/2025 3:06 PM EDT 03/23/2025 4:39 PM EDT us Ryland Dominguez MD LAB BLOOD ORDERABLE S Final Result Performing Organization Address City/[facility]/ZIP Co de Phone Number [facility] [address] [place] [address], [place] [phone] * Lactate dehydrogenase (03/23/2025 3:06 PM EDT) LDH 197 120 - 246 unit/L LAB CHEMISTRY METHOD 03/23/2025 5:06 PM EDT [facility] Blood Venous blood specimen / Unknown Venipuncture / Unknown 03/23/2025 3:06 PM EDT 03/23/2025 4:39 PM EDT Ryland Dominguez MD LAB BLOOD ORDERABLE S Final Result [facility] [address] [place] [address], [place] [phone] * (ABNORMAL) Comprehensive metabolic panel (03/23/2025 3:06 [...] LAB CHEMISTRY METHOD 03/23/2025 5:18 PM EDT [facility] Calcium 9.2 8.5 - 10.5 mg/dL LAB CHEMISTRY METHOD 03/23/2025 5:18 PM EDT [facility] AST (SGOT) 35 10 - 42 unit/L LAB CHEMISTRY METHOD 03/23/2025 5:18 PM T [facility] ALT (SGPT) 61(H) 10 - 60 unit/L LAB CHEMISTRY METHOD 03/23/2025 5:18 PM T [facility] Alkaline Phosphatase 64 42 - 121 unit/L LAB CHEMISTRY METHOD 03/23/2025 5:18 PM [facility] Total Protein 8.7(H) 6.0 - 8.0 g/dL LAB CHEMISTRY METHOD 03/23/2025 5:18 PM EDT [facility] Albumin 3.7 3.2 - 5.0 g/dL LAB CHEMISTRY METHOD 03/23/2025 5:18 PM [facility] Total Bilirubin 0.7 0.0 - 1.4 mg/dL LAB CHEMISTRY METHOD 03/23/2025 5:18 PM T [facility] Blood Venous blood specimen / Unknown Venipuncture / Unknown 03/23/2025 3:06 PM EDT 03/23/2025 4:39 PM EDT Helenaramaddie Dominguez MD LAB BLOOD ORDERABLE S Final Result [facility] [address] [place] [address], from Last 3 Months Insurance [facility] Care Teams Pressurization Mechanic Relationship Specialty Start Date End Date Lexus Sanders MD [address] [place] [address] PCP - General 02/05/01
--- OUTSIDE RECORDS SUMMARY | 2025-05-21 08:27 | XMS_ITS | Clinical Summary ---
Author Organization [facility] Address [address] [place] [address] Care Team Providers Care Moving Consultant Name Role Phone Lexus Sanders MD Primary Care Provider [phone] Allergies No known active allergies Medications Medication [...] age to complete this topic Care Teams Moving Consultant Relationship Specialty Start Date End Date Lexus Sanders MD PCP - General Internal Medicine 02/14/24
== END 2025-05-21 08:36 | disposition home or self-care (01) ==
LOC: HO.HOS 08:22
PROVIDERS: PCP Internal Medicine; Visit Provider Orthopaedic Surgery
DX: M22.41 Chondromalacia patellae, right knee (principal); S83.289A Other tear of lateral meniscus, current injury, unspecified knee, initial encounter; Z98.890 Other specified postprocedural states
CPT/HCPCS: 99024

== ENCOUNTER 2025-06-03 09:54 | Outpatient (AMB) | payer BC, SELFPAY ==
--- NOTE | 2025-06-03 09:55 | A.OFFVIS_ITS ---
Intake Visit Reasons: PO - Right Knee Evacuation 05/07/25 ok per NE Intake Note: Dayne is a 44 year old male who presents today a post operative follow up s/p Right Knee Arthroscopic evacuation of hematoma 05/07/25. At his last visit he reoprted lateral right knee pain. Currently patient reports that he is feeling much better. He feels that there is some tightness at the top of the patella - he mentioned this to physical therapy and they were able to massage the area making it feel better. This tightness has not fully resolved but PT explained that this will take a while to fully recover from. This massage does help him sleep better at night. Allergies No Known Allergies (No Known Allergies*) Allergy (Verified 05/21/25 08:24) HPI HPI PO - Right Knee Evacuation 05/07/25 ok per NE: Details: Dayne is a 44 year old male who presents today a post operative follow up s/p Right Knee Arthroscopic evacuation of hematoma 05/07/25. At his last visit he reoprted lateral right knee pain. Currently patient reports that he is feeling much better. He feels that there is some tightness at the top of the patella - he mentioned this to physical therapy and they were able to massage the area making it feel better. This tightness has not fully resolved but PT explained that this will take a while to fully recover from. This massage does help him sleep better at night. [facility] Surgical History Hx of hernia repair History of esophagogastroduodenoscopy (EGD) H/O colonoscopy Social History Comment: counts correct Patient Tobacco Use Status: Never used Tobacco e-Cigarette/Vaping Use: Never Used Physical Exam Extrem Other: Mild persistent effusion which is much better than before the surgery. 5 degree loss of terminal flexion but improving. Mild lateral joint line and lateral parapatellar tenderness to palpation. Assessment & Plan Assessment & Plan (1) Lateral subluxation of patella: Code(s): S83.013A - Lateral subluxation of unspecified patella, initial encounter Category: Medical Plan: Status post knee arthroscopy with a postop bleeding requiring a hematoma evacuation. Overall he has improved significantly. Intraoperatively he did have marked lateral patella and tibiofemoral cartilage damage. He should continue his PT and icing and NSAIDs. I will see him back in 1 month's time. He may return to work as tolerated (2) Chondromalacia patellae of right knee: Code(s): M22.41 - Chondromalacia patellae, right knee Category: Medical Plan: Coding Level of Care Code Global (46054) Diagnoses Lateral subluxation of patella S83.013A Chondromalacia patellae of right knee M22.41
--- OUTSIDE RECORDS SUMMARY | 2025-06-03 11:01 | XMS_ITS | Clinical Summary ---
Author Organization [facility] Address [address] [place] [address] Phone Care Team Providers Care Road Machine Operator Name Role Phone Lexus Sanders MD Primary Care Provider [phone] Allergies Active Allergy Reactions Criticality Noted Date Comments Apple 07/17/2024 nausea Banana 07/17/2024 nausea [place] 07/17/2024 nausea Medications meloxicam (MOBIC) 15 mg [...] 03/31/2025 3:45 PM EDT Office Visit [facility] Hematology Oncology [address] [place] [phone] Ryland Tovar MD MGUS (monoclonal gammopathy of unknown significance) (Primary Dx); IgG lambda monoclonal gammopathy; Chronic hepatitis B ([facility]/HCC V24, [facility]/HCC V28) 03/29/[address] [facility] [address] [facility] [address] [place] [address] Lina Gilbert MA from Last 3 Months Immunizations Name Administration Dates Next Due Hepatitis B (Pmnfzmi-V-Ojfam , Recombivax HB-Adult) 19yo and older 07/13/2009,02/11/2008,01/14/2008 [...] Team (Late st Contact Info) Description 07/08/2025 4:30 PM EDT Office Visit Adult Medicine [facility] [address] [place] [phone] Elizabeth Carter PA [address] [place], [place] 10/13/2025 3:30 PM EST Office Visit [facility] Hematology Oncology [address] [place] [phone] Ryland Dominguez MD [address] [place] [phone] Health Maintenance Due Date Last Done [...] Procedure Name Priority Date/Time Associated Diagnosis Comments CA PROTEIN ELECTROPHORETIC FRACTIONATION & QUANTITATION SERUM Routine 03/23/2025 3:06 PM EDT MGUS (monoclonal gammopathy of unknown significance) CA IMMUNOFIXATION ELECTROPHORESIS SERUM Routine 03/23/2025 3:06 PM [...] Kandi Abel MD 03/24/2025 3:11 PM EDT [facility] Blood Venous blood specimen / Unknown Venipuncture / Unknown 03/23/2025 3:06 PM EDT 03/23/2025 4:39 PM EDT Ryland Dominguez MD LAB BLOOD ORDERABLE S Final Result Performing Organization Address [facility]/ZIP Co de Phone Number [facility] [address] [place] [address], [place] [phone] * PATHOLOGIST REVIEW PROTEIN ELECTROPHORESIS (03/23/2025 3:06 PM EDT) Pathologist [facility] Pathologist Interpretation Reviewed by Kandi Abel MD 03/24/2025 4:55 PM EDT [facility] Blood Venous blood specimen / Unknown Venipuncture / Unknown 03/23/2025 3:06 PM EDT 03/23/2025 4:39 PM EDT Ryland Dominguez MD LAB BLOOD ORDERABLE S Final Result Performing Organization Address [facility] Co de Phone Number [facility] [address] [place] [address], [place] [phone] * (ABNORMAL) Kaloko-lambda free light chains, quantitative (03/23/2025 3:06 PM EDT) [place] Free Light Chain 0.82 0.33 - 1.94 mg/dL 03/26/2025 12:46 PM EDT [facility] Lambda Free Light Chain 15.64(H) 0.57 - 2.63 mg/dL 03/26/2025 12:46 PM EDT [facility] Kaloko/Lambda FLC Ratio 0.05(L) 0.26 - 1.65 03/26/2025 12:46 PM EDT [facility] Comment: Test performed at [facility], [address], [place] [address] Melissa Toledo MD, PhD - [employer] Blood Venous blood specimen / Unknown Venipuncture / Unknown 03/23/2025 3:06 PM EDT 03/23/2025 4:39 PM EDT Ryland Dominguez MD LAB BLOOD ORDERABLE S Final Result [facility] [address] [place] [address] * (ABNORMAL) CBC auto differential (03/23/2025 3:06 PM EDT) Pathologist [facility] WBC 6.3 4.8 - 10.8 K/mcL LAB HEMETOLOGY METHOD 03/23/2025 4:46 PM EDT [facility] RBC 4.50 4.50 - 5.50 M/mcL LAB HEMETOLOGY METHOD 03/23/2025 4:46 PM EDT [facility] Hemoglobin 14.7 13.5 - 17.5 g/dL LAB HEMETOLOGY METHOD 03/23/2025 4:46 PM EDT [facility] Hematocrit 43.5 42.0 - 54.0 % LAB HEMETOLOGY METHOD 03/23/2025 4:46 PM EDT [facility] MCV 97.3 79.0 - 98.0 FL LAB HEMETOLOGY METHOD 03/23/2025 4:46 PM EDT [facility] MCH 32.9(H) 27.0 - 32.0 pcg LAB HEMETOLOGY METHOD 03/23/2025 4:46 PM EDT [facility] MCHC 33.8 32.0 - 37.0 g/dL LAB HEMETOLOGY METHOD 03/23/2025 4:46 PM EDT [facility] RDW 14.4 11.0 - 15.0 % LAB HEMETOLOGY METHOD 03/23/2025 4:46 PM EDT [facility] Platelets 485(H) 130 - 400 K/mcL LAB HEMETOLOGY METHOD 03/23[facility]25 4:[facility] MPV 11.2(H) 7.0 - 11.0 FL LAB HEMETOLOGY METHOD 03/23/2025 4:46 [facility] NRBC 0.0 <1.0 % LAB [facility]EM[facility]OLOGY METHOD 03/23/2025 4:46 PM [facility] NRBC Absolute 0.00 <0.10 K/mcL LAB HEMETOLOGY METHOD 03/23/2025 4:46 PM [facility] Neutrophils Relative 57.8 % LAB HEMETOLOGY METHOD 03/23/2025 4:46 PM [facility] Lymphocytes Relative 30.6 % LAB HEMETOLOGY METHOD 03/23/2025 4:46 PM [facility] Monocytes Relative 8.9 % LAB HEMETOLOGY METHOD 03/23/2025 4:46 PM [facility] Eosinophils Relative 1.9 % LAB HEMETOLOGY METHOD 03/23/2025 4:46 PM [facility] Basophils Relative 0.5 % LAB HEMETOLOGY METHOD 03/23/2025 4:46 PM [facility] Immature Granulocytes Relative 0.3 % LAB HEMETOLOGY METHOD 03/23/2025 4:46 PM [facility] Neutrophils Absolute 3.65 1.50 - 7.00 K/mcL LAB HEMETOLOGY METHOD 03/23/2025 4:46 PM [facility] Lymphocytes Absolute 1.93 1.00 - 5.00 K/mcL LAB HEMETOLOGY METHOD 03/23/2025 4:46 PM [facility] Monocytes Absolute 0.56 0.20 - 1.00 K/mcL LAB HEMETOLOGY METHOD 03/23/2025 4:46 PM EDT [facility] Eosinophils Absolute 0.12 0.00 - 0.50 K/[facility] LAB HEMETOLOGY METHOD 03/23/2025 4:46 PM EDT [facility] Basophils Absolute 0.03 0.00 - 0.20 K/[facility] LAB HEMETOLOGY METHOD 03/23/2025 4:46 PM EDT [facility] Immature Granulocytes Absolute 0.02 0.00 - 0.03 K/[facility] LAB HEMETOLOGY METHOD 03/23/2025 4:46 PM EDT [facility] Blood Venous blood specimen / Unknown Venipuncture / Unknown 03/23/2025 3:06 PM EDT 03/23/2025 4:39 PM EDT us Ryland Dominguez MD LAB BLOOD ORDERABLE S Final Result Performing Organization Address [facility]/ZIP Co de Phone Number [facility] [address] [place] [address], [place] [phone] * Immunofixation electrophoresis serum (03/23/2025 3:06 PM EDT) [facility] Immunofixation Result, Serum IgG Lambda monoclonal immunoglobulins detected. LAB CHEMISTRY METHOD 03/24/2025 3:11 PM EDT [facility] Blood Venous blood specimen / Unknown Venipuncture / Unknown 03/23/2025 3:06 PM EDT 03/23/2025 4:39 PM EDT us Ryland Dominguez MD LAB BLOOD ORDERABLE S Final Result Performing Organization Address [facility]/ZIP Co de Phone Number [facility] [address] [place] [address], [place] [phone] * (ABNORMAL) Immunoglobulins IgG, IgA, IgM (03/23/2025 3:06 PM EDT) [facility] Total IgG 3,370(H) 549 - 1,584 mg/dL LAB CHEMISTRY METHOD 03/24/2025 12:28 PM EDT [facility] IgA 32(L) 61 - 348 mg/dL LAB CHEMISTRY METHOD 03/24/2025 12:28 PM EDT [facility] IgM 40 23 - 259 mg/dL LAB CHEMISTRY METHOD 03/24/2025 12:28 PM EDT [facility] Blood Venous blood specimen / Unknown Venipuncture / Unknown 03/23/2025 3:06 PM EDT 03/23/2025 4:39 PM EDT Ryland Dominguez MD LAB BLOOD ORDERABLE S Final Result [facility] [address] [place] [address], * (ABNORMAL) Protein electrophoresis, serum (03/23/2025 3:06 PM EDT) Total Protein 8.7(H) 6.0 - 8.0 g/dL LAB CHEMISTRY METHOD 03/24/2025 4:55 PM EDT [facility] Albumin, Serum 4.0 2.9 - 4.1 g/dL LAB CHEMISTRY METHOD 03/24/2025 4:55 PM EDT [facility] Alpha 1 Globulin (g/dL) 0.2 0.1 - 0.5 g/dL LAB CHEMISTRY METHOD 03/24/2025 4:55 PM EDT [facility] Alpha 2 Globulin (g/dL) 0.8 0.7 - 1.5 g/dL LAB CHEMISTRY METHOD 03/24/2025 4:55 PM EDT [facility] Beta (g/dL) 0.8 0.7 - 1.5 g/dL LAB CHEMISTRY METHOD 03/24/2025 4:55 PM EDT [facility] Gamma Globulin (g/dL) 2.9(H) 0.7 - 1.9 g/dL LAB CHEMISTRY METHOD 03/24/2025 4:55 PM EDT [facility] PARAPROTEIN 1.7 g/dL LAB CHEMISTRY METHOD 03/24/2025 4:55 PM EDT [facility] SPEP Interpretation Monoclonal gammopathy Abnormal pattern with M-spike of gamma globulin mobility. Serum Immunofixation performed on this specimen demonstrated IgG Lambda monoclonal protein. LAB CHEMISTRY METHOD 03/24/2025 4:55 PM EDT [facility] Blood Venous blood specimen / Unknown Venipuncture / Unknown 03/23/2025 3:06 PM EDT 03/23/2025 4:39 PM EDT Ryland Dominguez MD LAB BLOOD ORDERABLE S Final Result Performing Organization Address [facility]/ZIP Co de Phone Number [facility] [address] [place] [address], [place] [phone] * (ABNORMAL) Protein, total (03/23/2025 3:06 PM EDT) Total Protein 8.7(H) 6.0 - 8.0 g/dL LAB CHEMISTRY METHOD 03/23/2025 4:58 PM EDT [facility] Blood Venous blood specimen / Unknown Venipuncture / Unknown 03/23/2025 3:06 PM EDT 03/23/2025 4:39 PM EDT us Ryland Dominguez MD LAB BLOOD ORDERABLE S Final Result Performing Organization Address [facility]/ZIP Co de Phone Number [facility] [address] [place] [address], [place] [phone] * Lactate dehydrogenase (03/23/2025 3:06 PM EDT) LDH 197 120 - 246 unit/L LAB CHEMISTRY METHOD 03/23/2025 5:06 PM EDT [facility] Blood Venous blood specimen / Unknown Venipuncture / Unknown 03/23/2025 3:06 PM EDT 03/23/2025 4:39 PM EDT Ryland Dominguez MD LAB BLOOD ORDERABLE S Final Result [facility] [address] [place] [address], * (ABNORMAL) Comprehensive metabolic panel (03/23/2025 3:06 PM EDT) Sodium 136 133 - 145 mmol/L LAB CHEMISTRY METHOD 03/23/2025 5:18 PM [facility] Potassium 4.1 3.5 - 5.5 mmol/L LAB CHEMISTRY METHOD 03/23/2025 5:18 PM [facility] Chloride 102 96 - 110 mmol/L LAB CHEMISTRY METHOD 03/23/2025 5:18 PM [facility] CO2 29 21 - 32 mmol/L LAB CHEMISTRY METHOD 03/23/2025 5:18 PM [facility] Anion Gap 5 3 - 11 LAB CHEMISTRY METHOD 03/23/2025 5:18 PM [facility] Glucose 83 70 - 100 mg/dL LAB CHEMISTRY METHOD 03/23/2025 5:18 PM [facility] BUN 8 5 - 25 mg/dL LAB CHEMISTRY METHOD 03/23/2025 5:18 PM [facility] Creatinine 1.00 0.70 - 1.30 mg/dL LAB CHEMISTRY METHOD 03/23/2025 5:18 PM [facility] eGFR 96 >=60 mL/min/1. 73m2 LAB CHEMISTRY METHOD 03/23/2025 5:18 PM [facility] Comment:Calculation based on the Chronic Kidney Disease Epidemiology Collaboration (CKD-EPI) equation refit without adjustment for race. BUN/Creatinine Ratio 8.0 LAB CHEMISTRY METHOD 03/23/2025 5:18 PM EDT [facility] Calcium 9.2 8.5 - 10.5 mg/dL LAB CHEMISTRY METHOD 03/23/2025 5:18 PM T [facility] AST (SGOT) 35 10 - 42 unit/L LAB CHEMISTRY METHOD 03/23/2025 5:18 PM T [facility] ALT (SGPT) 61(H) 10 - 60 unit/L LAB CHEMISTRY METHOD 03/23/2025 5:18 PM T [facility] Alkaline Phosphatase 64 42 - 121 unit/L LAB CHEMISTRY METHOD 03/23/2025 5:18 PM [facility] Total Protein 8.7(H) 6.0 - 8.0 g/dL LAB CHEMISTRY METHOD 03/23/2025 5:18 PM EDT [facility] Albumin 3.7 3.2 - 5.0 g/dL LAB CHEMISTRY METHOD 03/23/2025 5:18 PM [facility] Total Bilirubin 0.7 0.0 - 1.4 mg/dL LAB CHEMISTRY METHOD 03/23/2025 5:18 PM T [facility] Blood Venous blood specimen / Unknown Venipuncture / Unknown 03/23/2025 3:06 PM EDT 03/23/2025 4:39 PM EDT Ryland Dominguez MD LAB BLOOD ORDERABLE S Final Result [facility] [address] [place] [address], from Last 3 Months Insurance [facility] Care Teams Road Machine Operator Relationship Specialty Start Date End Date Lexus Sanders MD [address] [place] [address] PCP - General 02/05/01
--- OUTSIDE RECORDS SUMMARY | 2025-06-03 11:01 | XMS_ITS | Clinical Summary ---
Author Organization [facility] Address [address] [place] [address] Care Team Providers Care Overhead Crane Operator Name Role Phone Lexus Sanders MD Primary Care Provider [phone] Allergies No known active allergies Medications Medication [...] age to complete this topic Care Teams Overhead Crane Operator Relationship Specialty Start Date End Date Lexus Sanders MD PCP - General Internal Medicine 02/14/24
== END 2025-06-03 10:51 | disposition home or self-care (01) ==
LOC: HO.HOS 09:54
PROVIDERS: PCP Internal Medicine; Visit Provider Orthopaedic Surgery
DX: S83.013A Lateral subluxation of unspecified patella, initial encounter (principal); M22.41 Chondromalacia patellae, right knee
CPT/HCPCS: 99024

== ENCOUNTER 2025-07-08 13:15 | Outpatient (AMB) | payer BC, SELFPAY ==
--- NOTE | 2025-07-08 13:41 | MHC.OFFVIS ---
Intake Visit Reasons: PO-RT Knee Evacuation 05/07/25 NE Intake Note: Danye is a 44 year old male who presents today a post operative follow up s/p Right Knee Arthroscopic evacuation of hematoma 05/07/25. At his last visit he was instructed to return to work as tolerated and continues Physical therapy & NSAIDS. He continues to see CORE Therapy. Allergies No Known Allergies (No Known Allergies*) Allergy (Verified 07/08/25 13:41) HPI HPI PO-RT Knee Evacuation 05/07/25 NE: Details: Dayne is a 44 year old male who presents today a post operative follow up s/p Right Knee Arthroscopic evacuation of hematoma 05/07/25. At his last visit he was instructed to return to work as tolerated and continues Physical therapy & NSAIDS. He continues to see [facility] Therapy. [facility] Surgical History Hx of hernia repair History of esophagogastroduodenoscopy (EGD) H/O colonoscopy Social History Comment: counts correct Patient Tobacco Use Status: Never used Tobacco e-Cigarette/Vaping Use: Never Used Physical Exam Extrem Other: 0-125 degrees range of motion right knee. Minimal effusion. Good quad strength but still slightly atrophied compared to the contralateral side. Assessment & Plan Assessment & Plan (1) Localized osteoarthritis of right knee: Code(s): M17.11 - Unilateral primary osteoarthritis, right knee Category: Medical Plan: This is a 44-year-old with right knee osteoarthritis. He has continued to improve status post arthroscopy and subsequent hematoma evacuation. The lateral Ashlee appears to have helped him and he still has room for improvement. I recommend he continue physical therapy and engage in closed-chain exercise like biking. He will follow up to see me in 2 months. Coding Level of Care Code Global (20938) Diagnoses Localized osteoarthritis of right knee M17.11
--- OUTSIDE RECORDS SUMMARY | 2025-07-08 14:44 | XMS_ITS | Clinical Summary ---
Author Organization [facility] Address [address] [place] [address] Care Team Providers Care Boat Wrapper Name Role Phone Lexus Sanders MD Primary Care Provider [phone] Allergies No known active allergies Medications Medication [...] age to complete this topic Care Teams Boat Wrapper Relationship Specialty Start Date End Date Lexus Sanders MD PCP - General Internal Medicine 02/14/24
--- OUTSIDE RECORDS SUMMARY | 2025-07-08 14:44 | XMS_ITS | Clinical Summary ---
Author Organization [facility] Address [address] [place] [address] Phone Care Team Providers Care Laborer Concrete Paving Name Role Phone Lexus Sanders MD Primary Care Provider Allergies Active Allergy Reactions Criticality Noted Date Comments Apple 07/17/2024 nausea Banana 07/17/2024 nausea [place] 07/17/2024 nausea Medications meloxicam (MOBIC) 15 mg [...] chronic dise ases classified elsewhere 03/30/2024 03/25/2025 Immunizations Immunization Administration Dates Next Due Hepatitis B (Cdxztue-J-Enknu , Recombivax HB-Adult) 19yo and older 07/13/2009,02/11/2008,01/14/2008 [...] drink = 0.6 oz pur e alcohol) Housing Instability Answer Date Recorde d Are you worried that in the next 2 months you may not have stable housing? No 07/05/2025 Food Access & Nutrition Answer Date Rec orded Do you have access to a vari ety of food including fruits and vegetables? Yes 07/05/2025 Access to Healthcare Answer Date Record ed Within the last 3 months, ho w many times did you visit the emergency department for your medical care? 0 07/05/2025 Health Literacy Answer Date Recorded How often do you need to hav e someone help you when you read instructions, pamphlets, or other written material from your doctor or pharmacy? Never 07/05/2025 Caregiver: How often do you need to have someone help you when you read instructions, pamphlets, or other written material from your doctor or pharmacy? Not on file 07/05/2025 Financial Risk Answer Date Recorded How hard is it for you to pa y for the very basics like food, housing, medical care, and air conditioning / heating? Not very hard 07/05/2025 Transportation Answer Date Recorded Has the lack of transportati on kept you from meetings, work, or from getting things needed for daily living? No Has the lack of transportati on kept you from medical appointments or from getting medications? No 07/05/2025 Social Isolation Answer Date Recorded How often do you feel lonely or isolated from th ose around you? Never 07/05/2025 Food Risk Answer Date Recorded Within the past 12 months we worried whether our food would run out before we got money to buy more. Never true 07/05/2025 Within the past 12 months th e food we bought just didn't last and we didn't have money to get more. Never true 07/05/2025 Dependent Care Answer Date Recorded Do you need help finding or paying for care for your loved ones. For example, children's ministries director or elderly care for an older adult? No 07/05/2025 Education Answer Date Recorded Do you think completing more education or training, like finishing a GED, going to college, or learning a trade, would be helpful for you? N/A 07/05/2025 Employment and Income Answer Date Recor ded During the last four weeks, have you been actively looking for work? No 07/05/2025 Living Situation Answer Date Recorded What is your living situation? Unrecognized valu e 07/05/2025 Sex and Gender Information Value Date Recorded [...] 4:30 PM EDT Office Visit Adult Medicine [facility] [address], [place] [phone] Elizabeth Carter PA [address] [place], [place] 10/13/2025 3:30 PM EST Office Visit [facility] Hematology Oncology [address] [place] [id number] Ryland Dominguez MD [address] [place] [address] Health Maintenance Due Date Last Done Comments Colorectal Cancer Screening: Colonoscopy 1982 Hepatitis A Vaccines (1 of 2 - Risk 2-dose series) 2001 Pneumococcal Vaccine: Pediatrics (0 to 5 Years) and At-Risk Patients (6 to 49 Years) (1 of 2 - PCV) 2001 IPV Vaccines (2 of 3 - Adult catch-up series) 04/20/2005 03/23/2005 HPV Vaccines (1 - 3-dose SCDM series) 2009 HIV Screening 09/09/2022 Hepatitis C Screening 09/09/2022 COVID-19 Vaccine ( season) 2025 09/12/2021, 12/01/2020, 11/10/2020 Influenza Vaccine (#1) 2025 , 07/15/2023, 07/13/2022, Additional history exists Social Influencers of Health Screening 07/05/2026 07/05/2025 DTaP,Tdap,and Td Vaccines (3 - Td or Tdap) 09/23/2027 09/23/2017, 01/14/2008 Cholesterol Screening (Lipid Panel) 08/04/2029 08/04/2024 RSV Immunization Adult Patients (1 - 1-dose 75+ series) 2057 Meningococcal ACWY Vaccine Aged Out 03/13/2005 N o longer eligible based on patient's age to complete this topic Hepatitis B Vaccines Completed 07/13/2009, 02/11/2008, 01/14/2008 Depression Screening Completed 07/05/2025 HIB Vaccines Aged Out No longer eligi [...] Procedure Name Priority Date/Time Associated Diagnosis Comments ID PROTEIN ELECTROPHORETIC FRACTIONATION & QUANTITATION SERUM Routine 06/09/2025 1:47 PM EDT MGUS (monoclonal gammopathy of unknown significance) PROTEIN, TOTAL Routine 06/09/2025 1:47 PM EDT MGUS (monoclonal gammopathy of unknown significance) CBC WITH AUTO DIFFERENTIAL Routine 06/09/2025 1:47 PM EDT MGUS (monoclonal gammopathy of unknown significance) KAPPA-LAMBDA QUANTITATIVE FREE LIGHT CHAINS Routine 06/09/2025 1:47 PM EDT MGUS (monoclonal gammopathy of unknown significance) CBC AND DIFFERENTIAL Routine 06/09/2025 1:47 PM EDT MGUS (monoclonal gammopathy of unknown significance) COMPREHENSIVE METABOLIC PANEL Routine 06/09/2025 1:47 PM EDT MGUS (monoclonal gammopathy of unknown significance) LACTATE DEHYDROGENASE Routine 06/09/2025 1:47 PM EDT MGUS (monoclonal gammopathy of unknown significance) PROTEIN ELECTROPHORESIS, SERUM Routine 06/09/2025 1:47 PM EDT MGUS (monoclonal gammopathy of unknown significance) from Last 3 Months Results * PATHOLOGIST REVIEW PROTEIN ELECTROPHORESIS (06/09/2025 1:47 PM EDT) Pathologist Interpretation Faye Mcpherson MD 06/10/2025 2:02 PM EDT [facility] Blood Venous blood specimen / Unknown Venipuncture / Unknown 06/09/2025 1:47 PM EDT 06/09/2025 4:54 PM EDT Subramaddie Dominguez MD LAB BLOOD ORDERABLE S Final Result [facility] [address] [place] [address], * (ABNORMAL) [place]-lambda free light chains, quantitative (06/09/2025 1:47 PM EDT) [place] Free Light Chain 0.67 0.33 - 1.94 mg/dL 06/14/2025 1:34 PM EDT [facility] Lambda Free Light Chain 20.30(H) 0.57 - 2.63 mg/dL 06/14/2025 1:34 PM EDT [facility] [place]/Lambda FLC Ratio 0.03(L) 0.26 - 1.65 06/14/2025 1:34 PM EDT [facility] Comment: Test performed at [facility], [address], [place] [address] Melissa Toledo MD, PhD - Blueprint Engineer Blood Venous blood specimen / Unknown Venipuncture / Unknown 06/09/2025 1:47 PM EDT 06/09/2025 4:54 PM EDT Subramaddie Dominguez MD LAB BLOOD ORDERABLE S Final Result [facility] [address] [place] [address] * (ABNORMAL) CBC auto differential (06/09/2025 1:47 PM EDT) WBC 5.7 4.8 - 10.8 K/mcL LAB HEMETOLOGY METHOD 06/09/2025 5:07 PM EDT [facility] RBC 4.10(L) 4.50 - 5.50 M/mcL LAB HEMETOLOGY METHOD 06/09/2025 5:07 PM EDT [facility] Hemoglobin 13.0(L) 13.5 - 17.5 g/dL LAB HEMETOLOGY METHOD 06/09/2025 5:07 PM EDT [facility] Hematocrit 38.6(L) 42.0 - 54.0 % LAB HEMETOLOGY METHOD 06/09/2025 5:07 PM EDT [facility] MCV 94.4 79.0 - 98.0 FL LAB HEMETOLOGY METHOD 06/09/2025 5:07 PM EDT [facility] MCH 31.8 27.0 - 32.0 pcg LAB HEMETOLOGY METHOD 06/09[facility]25 [facility] MCHC 33.7 32.0 - 37.0 g/dL LAB HEMETOLOGY METHOD 06/09/2025 5:07 PM EDT [facility] RDW 14.8 11.0 - 15.0 % LAB HEMETOLOGY METHOD 06/09/2025 5:07 PM [facility] Platelets 483(H) 130 - 400 K/mcL LAB HEMETOLOGY METHOD 06/09/2025 5:07 PM [facility] MPV 11.0 7.0 - 11.0 FL LAB HEMETOLOGY METHOD 06/09/2025 5:07 PM [facility] NRBC 0.0 <1.0 % LAB HEMETOLOGY METHOD 06/09/2025 5:07 PM [facility] NRBC Absolute 0.00 <0.10 K/mcL LAB HEMETOLOGY METHOD 06/09/2025 5:07 PM [facility] Neutrophils Relative 53.6 % LAB HEMETOLOGY METHOD 06/09/2025 5:07 PM [facility] Lymphocytes Relative 32.2 % LAB HEMETOLOGY METHOD 06/09/2025 5:07 PM [facility] Monocytes Relative 11.7 % LAB HEMETOLOGY METHOD 06/09/2025 5:07 PM [facility] Eosinophils Relative 1.8 % LAB HEMETOLOGY METHOD 06/09/2025 5:07 PM [facility] Basophils Relative 0.5 % LAB HEMETOLOGY METHOD 06/09/2025 5:07 PM [facility] Immature Granulocytes Relative 0.2 % LAB HEMETOLOGY METHOD 06/09/2025 5:07 PM [facility] Neutrophils Absolute 3.03 1.50 - 7.00 K/mcL LAB HEMETOLOGY METHOD 06/09/2025 5:07 PM [facility] Lymphocytes Absolute 1.82 1.00 - 5.00 K/mcL LAB HEMETOLOGY METHOD 06/09/2025 5:07 PM [facility] Monocytes Absolute 0.66 0.20 - 1.00 K/mcL LAB HEMETOLOGY METHOD 06/09/2025 5:07 PM EDT [facility] Eosinophils Absolute 0.10 0.00 - 0.50 K/mcL LAB HEMETOLOGY METHOD 06/09/2025 5:07 PM EDT [facility] Basophils Absolute 0.03 0.00 - 0.20 K/mcL LAB HEMETOLOGY METHOD 06/09/2025 5:07 PM EDT [facility] Immature Granulocytes Absolute 0.01 0.00 - 0.03 K/mcL LAB HEMETOLOGY METHOD 06/09/2025 5:07 PM EDT [facility] Blood Venous blood specimen / Unknown Venipuncture / Unknown 06/09/2025 1:47 PM EDT 06/09/2025 4:55 PM EDT Subramaddie Dominguez MD LAB BLOOD ORDERABLE S Final Result [facility] [address] [place] [address], * (ABNORMAL) Protein electrophoresis, serum (06/09/2025 1:47 PM EDT) Total Protein 8.3(H) 6.0 - 8.0 g/dL LAB CHEMISTRY METHOD 06/10/2025 2:02 PM EDT [facility] Albumin, Serum 3.8 2.9 - 4.1 g/dL LAB CHEMISTRY METHOD 06/10/2025 2:02 PM EDT [facility] Alpha 1 Globulin (g/dL) 0.2 0.1 - 0.5 g/dL LAB CHEMISTRY METHOD 06/10/2025 2:02 PM EDT [facility] Alpha 2 Globulin (g/dL) 0.7 0.7 - 1.5 g/dL LAB CHEMISTRY METHOD 06/10/2025 2:02 PM EDT [facility] Beta (g/dL) 0.8 0.7 - 1.5 g/dL LAB CHEMISTRY METHOD 06/10/2025 2:02 PM EDT [facility] Gamma Globulin (g/dL) 2.7(H) 0.7 - 1.9 g/dL LAB CHEMISTRY METHOD 06/10/2025 2:02 PM EDT [facility] PARAPROTEIN 1.8 g/dL LAB CHEMISTRY METHOD 06/10/2025 2:02 PM EDT [facility] SPEP Interpretation Monoclonal gammopathy Abnormal pattern with M-spike of gamma globulin mobility. Serum immunofixation previously performed on 03/23/25 demonstrated IgG Lambda monoclonal protein. LAB CHEMISTRY METHOD 06/10/2025 2:02 PM EDT [facility] Blood Venous blood specimen / Unknown Venipuncture / Unknown 06/09/2025 1:47 PM EDT 06/09/2025 4:54 PM EDT us Ryland Dominguez MD LAB BLOOD ORDERABLE S Final Result Performing Organization Address City/[facility]/ZIP Co de Phone Number [facility] [address] [place] [address], [place] [phone] * (ABNORMAL) Protein, total (06/09/2025 1:47 PM EDT) Total Protein 8.3(H) 6.0 - 8.0 g/dL LAB CHEMISTRY METHOD 06/09/2025 5:30 PM EDT [facility] Blood Venous blood specimen / Unknown Venipuncture / Unknown 06/09/2025 1:47 PM EDT 06/09/2025 4:54 PM EDT us Ryalnd Dominguez MD LAB BLOOD ORDERABLE S Final Result [facility] [address] [place] [address], [place] [phone] * Lactate dehydrogenase (06/09/2025 1:47 PM EDT) [facility] LDH 203 120 - 246 unit/L LAB CHEMISTRY METHOD 06/09/2025 5:26 PM EDT [facility] Blood Venous blood specimen / Unknown Venipuncture / Unknown 06/09/2025 1:47 PM EDT 06/09/2025 4:54 PM EDT Ryland Dominguez MD LAB BLOOD ORDERABLE S Final Result [facility] [address] [place] [address], [place] [phone] * (ABNORMAL) Comprehensive metabolic panel (06/09/2025 1:47 PM EDT) [facility] Sodium 138 133 - 145 mmol/L LAB CHEMISTRY METHOD 06/09/2025 5:26 PM T [facility] Potassium 4.0 3.5 - 5.5 mmol/L LAB CHEMISTRY METHOD 06/09/2025 5:26 PM [facility] Chloride 106 96 - 110 mmol/L LAB CHEMISTRY METHOD 06/09/2025 5:26 PM [facility] CO2 27 21 - 32 mmol/L LAB CHEMISTRY METHOD 06/09/2025 5:26 PM T [facility] Anion Gap 5 3 - 11 LAB CHEMISTRY METHOD 06/09/2025 5:26 PM [facility] Glucose 87 70 - 100 mg/dL LAB CHEMISTRY METHOD 06/09/2025 5:26 PM [facility] BUN 7 5 - 25 mg/dL LAB CHEMISTRY METHOD 06/09/2025 5:26 PM [facility] Creatinine 0.85 0.70 - 1.30 mg/dL LAB CHEMISTRY METHOD 06/09/2025 5:26 PM T [facility] eGFR 111 >=60 mL/min/1. 73m2 LAB CHEMISTRY METHOD 06/09/2025 5:26 PM [facility] Comment:Calculation based on the Chronic Kidney Disease Epidemiology Collaboration (CKD-EPI) equation refit without adjustment for race. BUN/Creatinine Ratio 8.2 LAB CHEMISTRY METHOD 06/09/2025 5:26 PM [facility] Calcium 9.2 8.5 - 10.5 mg/dL LAB CHEMISTRY METHOD 06/09/2025 5:26 PM [facility] AST (SGOT) 29 10 - 42 unit/L LAB CHEMISTRY METHOD 06/09/2025 5:26 PM [facility] ALT (SGPT) 43 10 - 60 unit/L LAB CHEMISTRY METHOD 06/09/2025 5:26 PM [facility] Alkaline Phosphatase 59 42 - 121 unit/L LAB CHEMISTRY METHOD 06/09/2025 5:26 PM [facility] Total Protein 8.2(H) 6.0 - 8.0 g/dL LAB CHEMISTRY METHOD 06/09/2025 5:26 PM [facility] Albumin 3.5 3.2 - 5.0 g/dL LAB CHEMISTRY METHOD 06/09/2025 5:26 PM [facility] Total Bilirubin 0.6 0.0 - 1.4 mg/dL LAB CHEMISTRY METHOD 06/09/2025 5:26 PM [facility] Blood Venous blood specimen / Unknown Venipuncture / Unknown 06/09/2025 1:47 PM EDT 06/09/2025 4:54 PM EDT us Ryland Dominguez MD LAB BLOOD ORDERABLE S Final Result [facility] [address] [place] [address], from Last 3 Months Insurance [facility] Care Teams Laborer Concrete Paving Relationship Specialty Start Date End Date Lexus Sanders MD [address] [place] [address] PCP - General 02/05/01
== END 2025-07-08 14:04 | disposition home or self-care (01) ==
LOC: HO.HOS 13:15
PROVIDERS: PCP Internal Medicine; Visit Provider Orthopaedic Surgery
DX: M17.11 Unilateral primary osteoarthritis, right knee (principal)
CPT/HCPCS: 99024

== ENCOUNTER 2025-07-13 16:00 | Outpatient (RCR) | payer BC, SELFPAY ==
--- NOTE | 2025-05-14 12:28 | MHC.PT.EP ---
[facility] [place] [facility] [place] [facility] [place] [facility] [address] Geno Dawkins [address] [phone] F: [phone] F: [phone] F: [phone] F: [phone] Physical Therapy Plan of Care Date of Evaluation: 05/14/25 Date of Surgery: 04/28/25, 05/07/25 Diagnosis: effusion. R knee other specified postprocedural states Assessment: 44 y/o male s/p R knee partial lateral meniscectomy with chondroplasty and lateral release on 04/28/25. Increased pain and swelling following surgery and pt then underwent another surgery on 05/07/25 for removal of hematoma. Then on 05/10/25, pt underwent aspiration of fluid of 60mL. CUrrently he report 8/10 pain that is limited his ability to sleep, dress, walk, ascend/descend stairs, and work duties as a nurse. Examination shows increased knee swelling, poor R quad set, unable to perform SLR, decreased R LE strength, pain and impaired gait pattern. Recommend PT 2x/week for 8 weeks to address impairments, implement HEP, and optimize functional mobility. Frequency and Duration: The patient will be seen 2x/week for 6 weeks Short Term Goals: 4 weeks I with HEP Pt will demonstrate R knee ROM 0-120 Pt will demonstrate SLR without lag Electroless Plater Goals: 8 weeks I with HEP and self management of sx Pt will be able to walk without assitive device with symmetrical gait pattern and pain < 3/10 Pt will be able to ascend/ descend stairs with pain < 3/10 Treatment Plan: Modalities to reduce pain, spasms and effusion. Manual therapy to restore motion and function. Therapeutic exercise to improve strength and flexibility. Neuromuscular re-education for posture and balance. Therapeutic activities to return to functional activities of daily living. Electronically signed by: Lidia Green PT Please sign and return to therapist. Thank you for your referral.
--- NOTE | 2025-07-15 08:24 | MHC.PT.DC ---
[facility] [place] Office [place] Office [place] Office [address] Geno Dawkins [address] [facility] [phone] F: [phone] F: [phone] F: [phone] F: [phone] Physical Therapy Discharge Report Diagnosis: effusion. R knee other specified postprocedural states Date of Surgery: 04/28/25, 05/07/25 Date of Evaluation: 05/14/25 Date of Discharge: 07/15/25 Treatments to Date: 10 Cancellations to Date: 0 No Shows to Date: 0 Discharge Status: Improved Function Independent with HEP Discharge Summary: Pt has been making good progress with improved quad strength (though still slight atrophy compared to contralateral side), improved gait pattern, and able to ascend/descend stairs. We have progressed to gentle plyos which were tolerated well and he feels ready to perform exercises independently. D/c to I HEP. Electronically signed by: Lidia Green PT Please sign and return to therapist. Thank you for your referral.
== END 2025-07-15 08:25 | disposition home or self-care (01) ==
LOC: HO.PT 16:00
PROVIDERS: PCP Internal Medicine; Visit Provider Orthopaedic Surgery
DX: M25.461 Effusion, right knee (principal); Z98.890 Other specified postprocedural states
CPT/HCPCS: 97110; 97112; 97116; 97140; 97161; 97530

== ENCOUNTER 2025-09-06 13:35 | Outpatient (AMB) | payer BC, SELFPAY ==
--- NOTE | 2025-09-06 13:36 | A.OFFVIS_ITS ---
Vital Signs 09/06/25 13:41 Height 6 ft Weight 197 lb BMI 26.7 Intake Visit Reasons: OV-RT Knee Evacuation 05/07/25 NE Intake Note: Dayne is a 44 year old male percents today follow up on the right knee s/p right knee arthroscopic evacutaion of hematoma 05/07/25. Patient reports that he was still working with physical therapy, but feels that he has plateaueued. The knee pops occasionally and when this happens it is painful and the knee occasionally gives out. Allergies No Known Allergies (No Known Allergies*) Allergy (Verified 07/08/25 13:41) HPI HPI OV-RT Knee Evacuation 05/07/25 NE: Details: Dayne is a 44 year old male percents today follow up on the right knee s/p right knee arthroscopic evacutaion of hematoma 05/07/25. Patient reports that he was still working with physical therapy, but feels that he has plateaueued. The knee pops occasionally and when this happens it is painful and the knee occasionally gives out. PFSH Surgical History Hx of hernia repair History of esophagogastroduodenoscopy (EGD) H/O colonoscopy Social History Comment: counts correct Patient Tobacco Use Status: Never used Tobacco e-Cigarette/Vaping Use: Never Used Physical Exam Exam Exam: There is mild quad weakness with a moderate effusion which is his baseline. He has a positive Verduzco's cyst. Is good range of motion. No erythema. There is a small fibrous collection of tissue over his lateral quad with a question of a small defect in the lateral quad but strength is good and he can straight leg raise and extended against resistance. Vital Signs: BMI result Body Mass Index 26.7 Assessment & Plan Assessment & Plan (1) Knee effusion, right: Code(s): M25.461 - Effusion, right knee Category: Medical Plan: 45-year-old gentleman with knee arthritis who has a large effusion. He had a hematoma after a chondroplasty and lateral release which took him a while to improve. Now he does feel some weakness and there is a small knot in his quad that may represent a small partial tear. I recommend an MRI to assess. Orders: Orders MR knee RT wo con Today M25.461 - Effusion, right knee Coding Level of Care Code Est Pt Level 3 (00814) Diagnoses Knee effusion, right M25.461
[2025-09-06 13:41] VITALS: BMI 26.7
--- OUTSIDE RECORDS SUMMARY | 2025-09-06 17:07 | XMS_ITS | Clinical Summary ---
Author Organization [facility] Address [address] [place] [address] Care Team Providers Care Gameplay Programmer Name Role Phone Lexus Sanders MD Primary Care Provider [phone] Allergies No known active allergies Medications Medication [...] age to complete this topic Care Teams Gameplay Programmer Relationship Specialty Start Date End Date Lexus Sanders MD PCP - General Internal Medicine 02/14/24
== END 2025-09-06 13:55 | disposition home or self-care (01) ==
LOC: HO.HOS 13:35
PROVIDERS: PCP Internal Medicine; Visit Provider Orthopaedic Surgery
DX: M25.461 Effusion, right knee (principal)
CPT/HCPCS: 99213

== ENCOUNTER → 2025-09-29 15:28 | Outpatient (BNV) | payer BC, SELFPAY | PROVIDERS: PCP Internal Medicine; Visit Provider Radiology Diagnostic Radiology | DX: M25.461 Effusion, right knee (principal) | CPT/HCPCS: 73721 ==

== ENCOUNTER 2025-09-29 15:31 | Outpatient (REF) | payer BC, SELFPAY ==
--- OUTSIDE RECORDS SUMMARY | 2025-09-27 10:30 | XMS_ITS | Encounter Summary ---
Author Organization [facility] Address [address] [place] [address] Care Team Providers Care Special Service Officer Name Role Phone Lexus Sanders MD Primary Care Provider [phone] Reason for Visit * Auth/Cert (Routine) Specialty Diagnoses / Procedures Referred By Conthaley t Referred To Contact Diagnoses Finger mass, left LEFT FINGER MASS Procedures MN EXC TMR/SOFT TISSUE/VASCULAR MALFORMATION HAND/FINGER SUBFASCIAL < 1.5CM EXCISION LESION HAND, LEFT RING FINGER Ronaldo Jordan MD [address] [place] [address] Phone: tel: fax: [facility] Main OR [address] [place] [phone] Phone: tel: Referral ID Status Reason Start Date Expiration Date Visits Re quested Visits Authorized [id number] 1 1 Encounter Details Date Type Department Care Team (Latest Contact Info) Description 09/27/2025 10:30 AM EST - 09/27/2025 12:53 PM EST Hospital Encounter [facility] Main OR [address] [place] [address] Roanldo Jordan MD [address] [place] [address] Finger mass, left Discharge Disposition: Home or Self Care Social History Tobacco Use Types Packs/Day Years [...] care for your loved ones. For example, child life specialist or elderly care for an older adult? [...] Orientation Straight 10/15/2024 12 :26 PM EST documented as of this encounter Last Filed Vital Signs Vital Sign Reading Time Taken Comments Blood Pressure 112/62 09/27/2025 12:12 PM EST Pulse 65 09/27/2025 12:12 PM EST Temperature 36.1 C (97 F) 09/27/2025 11:49 AM EST Respiratory Rate 16 09/27/2025 12:12 PM EST Oxygen Saturation 99% 09/27/2025 12:12 PM EST Inhaled Oxygen Concentration - - Weight 88.5 kg (195 lb) 08/26/2025 9:00 AM EST Height 182.9 cm (6') 08/26/2025 9:00 AM EST Body Mass Index 26.45 08/26/2025 9:00 AM EST documented in this encounter Discharge Instructions * Discharge Instructions* CHRISTIANA Cordero - 09/27/2025 10:47 AM EST - Apply ice packs for swelling and pain control; apply for 10-15 minutes at a time - Elevate postoperative hand to reduce swelling - Take Tylenol and ibuprofen to control pain - Take oxycodone only if you need to for severe pain - It is okay to move the fingers and thumb and to use the hand lightly as tolerated. - No driving until you can use the hand adequately to safely handling your vehicle. No driving within 24 hours of narcotic pain medication use. - Keep dressing clean and dry, stitches will be removed at first post-op visit - Call if you have any questions or concerns such as fever, redness, drainage, gross swelling, discoloration - Your postoperative visit should be within 10-14 days; Call to schedule an appointment if you do not have one to be seen. Follow up: 10/12/24 Dr. Jordan [address] [place] [id number] * Attachments The following attachments cannot be sent through Care Everywhere. * Sedation: General Info (Frisian) documented in this encounter Medications at Time of Discharge acetaminophen (TYLENOL) 500 mg tablet Take 2 tablets (1,000 mg total) by mouth every 6 (six) hours if needed for mild pain for up to 10 days. 30 tablet 09/27/2025 10/07/2025 cetirizine (ZyrTEC) 10 mg tablet 02/12/2024 famotidine (PEPCID) 20 mg tablet Take by mouth. ibuprofen (ADVIL,MOTRIN) 600 mg tablet Take 1 tablet (600 mg total) by mouth every 6 (six) hours if needed for mild pain for up to 10 days. 30 tablet 09/27/2025 10/07/2025 oxyCODONE (OXY-IR) 5 mg immediate release capsule Take 1 capsule (5 mg total) by mouth every 6 (six) hours if needed for severe pain. Max Daily Amount: 20 mg 5 capsule 09/27/2025 documented as of this encounter Ordered Prescriptions Prescription Sig Dispense Quantity Refills Last Filled Start Date End Date oxyCODONE (OXY-IR) 5 mg immediate release capsule Take 1 capsule (5 mg total) by mouth every 6 (six) hours if needed for severe pain. Max Daily Amount: 20 mg 5 capsule 09/27/2025 acetaminophen (TYLENOL) 500 mg tablet Take 2 tablets (1,000 mg total) by mouth every 6 (six) hours if needed for mild pain for up to 10 days. 30 tablet 09/27/2025 ibuprofen (ADVIL,MOTRIN) 600 mg tablet Take 1 tablet (600 mg total) by mouth every 6 (six) hours if needed for mild pain for up to 10 days. 30 tablet 09/27/2025 6 oxyCODONE (OXY-IR) 5 mg immediate release capsule Take 1 capsule (5 mg total) by mouth every 6 (six) hours if needed for severe pain. Max Daily Amount: 20 mg 6 capsule 09/27/2025 5 documented in this encounter Discharge Disposition Disposition Code Departure Means Destination Comment s Home or Self Care Wheelchair documented in this encounter H&P Notes * CHRISTIANA Cordero - 09/27/2025 10:54 AM EST History Of Present Illness (include Chief Complaint): Dayne Bundy is a 45 y.o. male presenting with left ring finger mass for mass excision. The lump in this finger continues to persist. No numbness or tingling. No triggering of his finger. He is in his normal state of health and denies any recent illness or changes to his health. Past Medical History: He has a past medical history of Anemia, Arthritis, Esophagitis (05/20/2009), GERD (gastroesophagealreflux disease), Hepatitis A (09/15/2012), Hepatitis B, and MGUS (monoclonal gammopathy of unknown significance) (03/30/2024). He has no past medical history of Anxiety state, Asthma, Bronchitis, Cerebrovascular disease, Cervical spondylosis without myelopathy, Chronic ischemic heart disease, Depressive disorder, Diabetes mellitus type 2, controlled, with complications ([facility]/HCC V24, CMS/HCC V28), Essential hypertension, Historical Medical DX, Hyperlipidemia, Irritable bowel syndrome, Malignant neoplasm of colon (CMS/HCC V24, CMS/HCC V28), Malignant neoplasm of female breast (CMS/HCC V24, CMS/HCC V28), Neoplasm of uncertain behavior of prostate, Nevus, non-neoplastic, or Personal history of malignant melanoma of skin. Surgical History: He has a past surgical history that includes Esophagogastroduodenoscopy (02/14/2009); Colonoscopy (08/20/2002); Colonoscopy (07/28/2020); Other surgical history; Upper gastrointestinal endoscopy; Hernia repair; Knee Arthroscopy (Right); and Meniscectomy (Right). Family History: family history includes Colon cancer in his sister; Dementia in his maternal grandmother; Diabetes in his mother; Hypertension in his father; Other: brain tumor in his sister. Social History: He reports that he has never smoked. He has never used smokeless tobacco. He reports that he does not drink alcohol and does not use drugs. Allergies: Apple, Banana, and Bradford Home Medications: Prescriptions Prior to Admission[1] Review of Systems Constitutional: Negative for chills. Respiratory: Negative for cough and shortness of breath. Cardiovascular: Negative for chest pain. Skin: Negative for rash. Neurological: Negative for speech difficulty. Psychiatric/Behavioral: Negative for confusion. Last Recorded Vitals: Blood pressure 103/55, pulse 68, temperature 36.7 ??C (98 ??F), resp. rate 16, height 1.829 m (72 ), weight 88.5 kg (195 lb), SpO2 99%. Physical Exam Focused Exam: Left Upper Extremity Skin intact palpable subcutaneous mass distal to the digital flexion crease at the ring finger, nontender palpation With full composite fist formation fingertip to distal palmar crease distance of 0 cm Fires EPL/FPL/FDP/IO SILT M/R/U hand warm well perfused General: No acute distress well-appearing Cardiovascular: Regular rate and rhythm with palpable peripheral pulses Pulm: No increased work of breathing symmetric chest rise Abdomen: Nondistended Relevant Results: Left ring finger mass Excision under sedation Assessment/Plan Principal Problem: Finger mass, left [1] Medications Prior to Admission Medication Sig Dispense Refill Last Dose/Taking cetirizine (ZyrTEC) 10 mg tablet famotidine (PEPCID) 20 mg tablet Take by mouth. documented in this encounter Procedure Notes * Ana Nix RN - 09/27/2025 12:[address] Jordan at bedside to see pt * Ronaldo Jordan MD - 09/27/2025 11:21 AM EST EXCISION LESION HAND, LEFT RING FINGER (L) OPERATIVE NOTE Date: 09/27/2025 Location: [facility] [[email or web address]] OR Name: Dayne Bundy : 1980 Preoperative Diagnosis Pre-Op Diagnosis Codes: * Finger mass, left [R22.32] Post-op Diagnosis * Finger mass, left [R22.32] Procedure(s) and postoperative diagnosis: Excision of ganglion cyst of flexor tendon sheath [address] Surgeon(s) & [employer] Fusion Consultant(s) Primary: Ronaldo Jordan MD Staff: Top Polisher: Nat Riley RN Scrub Person: Jes Gillette physician insurance assistant was required for assistance. They assisted with patient positioning, sterile prep, tissue retraction and wound closure. No other qualified insurance assistant or resident was available Anesthesia: No value filed. ASA: II Specimen: Specimens ID Source Type Tests Collected By Collected At Frozen? Priority Lab ID 1 Hand, Digit Left Tissue TISSUE EXAM Ronaldo Jordan MD 09/27/25 [id number] Description: Ring Finger Cyst Preoperative Information and Indication: Dayne Bundy is a 45 y.o. male who presented with left ring finger mass just distal to the digitalflexion crease. This is symptomatic and bothersome to him affecting his ability to grab objects andtender with pressure. Due to his symptoms I did offer operative treatment with excision. I had discussed also possible obtaining imaging but due to the relatively benign nature of the mass which appeared to be likely consistent with an inclusion cyst or ganglion cyst elected to proceed with excision of the mass. Consent: I explained the procedure and postoperative protocol. I discussed the recovery period. I explained to the patient the risks and benefits of operative intervention to include but not be limited to therisk of anesthesia, bleeding, infection, damage to arteries tendons and nerves, persistent symptoms, recurrent symptoms, scar sensitivity, need for further surgery, and possible need for extensive postoperative therapy and immobilization, or even risk of . We also talked about the possible need of other surgery. The patient understood these risks and wished to proceed. Operative Details Position: supine Findings: 2 cystic masses arising from flexor tendon sheath, filled with clear mucinous fluid Tourniquet time:10 minutes Description of Procedure: Patient was met in the preoperative area and the operative site was marked. The mass was confirmed with the patient and palpated and marked. The patient was then brought to the operating room and positioned supine. Left upper extremity was prepped and draped in routine sterile fashion. Surgical timeout was performed. Anesthetic was injected with lidocaine 1%. Left upper limb was exsanguinated andupper arm tourniquet was inflated to 250mmhg. A 2 cm Yunior style incision was made across the ring finger digital flexion crease. With blunt dissection the radial and ulnar neurovascular bundles were identified and protected. A subcutaneous mass arising from the flexor tendon sheath was encountered. This was carefully dissected from the surrounding soft tissues. With care to bluntly retract the digital neurovascular bundle the mass was excised in its entirety along with its stalk from the flexor tendon sheath. This was sent for pathology. After removal of the mass there was a smaller fluid-filled cystic mass arising from the more ulnar aspect of the flexor tendon sheath. This again was excised in its entirety. The site of the stalks at the tendon sheath was then cauterized with bipolar. The A2 lucretia was left intact and the flexor tendon below was visualized to be intact without injury. Only normal tissue was remaining and the cystic masses were removed in their entirety. The radial and ulnar neurovascular bundles were again visualized and confirmed to be in continuity The tourniquet was taken down, the wound was well irrigated and closed using 4-0 nylon. Dry steriledressing was applied. The patient tolerated the procedure well and was taken to the recovery room. Postoperative Information Closure: 4-0 nylon Estimated Blood Loss: less than 10 cc Complications: none Post-Operative Condition: Good condition Sponge/Needle Count: Correct Postoperative plan: Dressing: xeroform, 4x4, cling wrap, maria antonia wrap Wound care: may remove dressing POD#5 and replace with bandaid Immobilization: soft dressing Weight Bearing Status: NWB LUE, may use hand for light activities of daily living, finger ROMAT Analgesia: oxycodone, tylenol, ibuprofen Follow-up: 10/12/24 Imaging at follow-up: none Professional Services Attending Attestation: I was present for the panchal portions and immediately available for the non-keyportions. Credentials and Title of Author: Ronaldo Jordan MD Credentials: . Title: Attending. * Ariana Stearns RN - 09/27/2025 11:09 AM EST [place] [phone], contact/ride home documented in this encounter Plan of Treatment Upcoming Encounters Date Type Department Care Team (Late st Contact Info) Description 10/12/2025 1:15 PM EST Office Visit Orthopedic Surgery - [place] [address] [facility] [address] [place] [phone] Haily Gillette PA [address] [place] [address] 10/13/2025 3:30 PM EST Office Visit [facility] Hematology Oncology [address] [place] [phone] Ryland Dominguez MD [address] [place] [phone] 03/01/2026 2:40 PM EDT Office Visit Gastroenterology - [address] [facility] [address] [facility] [address] [place] [phone] Milla Crowe PA [address] [facility] [address] [place] [address] 08/01/2026 3:30 PM EDT Office Visit Adult Medicine [facility] [address] [place], [place] [phone] Philomena Stubbs PA [address] [place], [place] documented as of this encounter Goals Goal Patient Goal Type Associated Problems Recent Progress Patient-Stated? Author Autogenerat ed Goal Care Plan Autogenerated Problem No Ronaldo Jordan MD documented as of this encounter Procedures Procedure Name Priority Date/Time Associated Diagnosis Comments TISSUE EXAM Routine 09/27/2025 11:28 AM EST Finger mass, left MN EXC TMR/SOFT TISSUE/VASCULAR MALFORMATION HAND/FINGER SUBFASCIAL < 1.5CM 09/27/2025 11:06 AM EST Finger mass, left Special Needs Spoke with pt to offer a DOS of 09/07 or 09/14/2025 @ [facility]. Pt want at [facility] for 09/27/2025. AM -08/17 documented in this encounter Results * Tissue exam (09/27/2025 11:28 AM EST) Final Diagnosis Soft tissue, left ring finger-excision: -GANGLION CYST 09/28/2025 11:[address] [facility] at 1102 EST Gross Description A. Hand, Digit Left, Ring Finger Cyst: Labeled finger L, ring fing . Received in formalin is an irregular pandey-white rubbery fibromembranous tissue fragment, measuring 1.1 x 0.5 x 0.3 cm, which is submitted in toto in one cassette, one piece. HAZEL 09/28/2025 11:[address] [facility] Disclaimer Unless otherwise specified, all tissue is 10% NB formalin fixed and paraffin embedded. 09/28/2025 11:[address] [facility] Tissue Structure of digit of left hand / Unknown 09/27/2025 11:28 AM EST 09/27/2025 12:39 PM EST Ronaldo Jordan MD LAB PATHOLOGY ORDERABLES Final R esult [facility] [address] [place] [address], documented in this encounter Visit Diagnoses Diagnosis Finger mass, left- Primary Localized superficial swelling, mass, or lump documented in this encounter Admitting Diagnoses Diagnosis Finger mass, left Localized superficial swelling, mass, or lump documented in this encounter Administered Medications Inactive Administered Medications - up to 3 most recent administrations Medication Order MAR Action Action Date Dose Rate Site acetaminophen (TYLENOL) tablet 1,000 mg 1,000 mg, oral, Once as needed, mild pain, Starting on 09/27/25 at 1208, For 1 dose, Phase II/On Unit, If patient has not received tylenol in the last 6 hours diphenhydrAMINE (BENADRYL) injection 12.5 mg 12.5 mg, intravenous, Once as needed, nausea and vomitting, Starting on Sat09/27/25 at 1208, For 1 dose, Phase II/On Unit, Give as THIRD antiemetic in order set. Only if this has not been given in the operating room or in PACU. haloperidol lactate (HALDOL) injection 1 mg 1 mg, intravenous, Once as needed, nausea and vomitting, Starting on Sat09/27/25 at 1208, For 1 dose, Phase II/On Unit, Give as SECOND antiemetic in order set. Only if this has not been given in the operating room or in PACU. May be ordered via either intramuscular or intravenous route. If ordered IV, maximum of 5 mg/minute. lactated Ringer's infusion 75 mL/hr, intravenous, Continuous, Starting on Sat09/27/25 at 1230, Recovery (only) ondansetron (PF) (ZOFRAN) injection 4 mg 4 mg, intravenous, Once as needed, nausea, vomiting, Starting on Sat09/27/25 at 1208, For 1 dose, Phase II/On Unit, Give as FIRST antiemetic in order set Infuse over 2 minutes. oxyCODONE (ROXICODONE) immediate release tablet 5 mg 5 mg, oral, Once as needed, moderate pain, Starting on Sat09/27/25 at 1208, For 1 dose, Phase II/On Unit documented in this encounter Discontinued Medications Medication Sig Discontinue Reason Start Date End Da te meloxicam (MOBIC) 15 mg tablet TAKE 1 TABLET BY MOUTH DAILY. NEEDED FOR PAIN 12/15/2024 08/26/2025 oxyCODONE (OXY-IR) 5 mg immediate release capsule Take 1 capsule (5 mg total) by mouth every 6 (six) hours if needed for severe pain. Max Daily Amount: 20 mg Stop Taking at Discharge 09/27/2025 09/27/2025 documented as of this encounter Historical Medications * This list may reflect changes made after this encounter. famotidine (PEPCID) 20 mg tablet Take by mouth. added in this encounter Active and Recently Administered Medications Times are shown in EST. Continuous Medication Order 09/25/2025 09/26/2025 09/27/2025 lactated Ringer's infusion 75 mL/hr, intravenous, Continuous, Starting on Sat09/27/25 at 1230, Recovery (only) 1230 (Canceled Entry - Provider: Automatic Discharge Provider - Comment: Automatically canceled at discontinue of medication order) PRN Medication Order 09/25/2025 09/26/2025 09/27/2025 acetaminophen (TYLENOL) tablet 1,000 mg 1,000 mg, oral, Once as needed, mild pain, Starting on Sat09/27/25 at 1208, For 1 dose, Phase II/On Unit, If patient has not received tylenol in the last 6 hours diphenhydrAMINE (BENADRYL) injection 12.5 mg 12.5 mg, intravenous, Once as needed, nausea and vomitting, Starting on Sat09/27/25 at 1208, For 1 dose, Phase II/On Unit, Give as THIRD antiemetic in order set. Only if this has not been given in the operating room or in PACU. haloperidol lactate (HALDOL) injection 1 mg 1 mg, intravenous, Once as needed, nausea and vomitting, Starting on Sat09/27/25 at 1208, For 1 dose, Phase II/On Unit, Give as SECOND antiemetic in order set. Only if this has not been given in the operating room or in PACU. May be ordered via either intramuscular or intravenous route. If ordered IV, maximum of 5 mg/minute. lidocaine (XYLOCAINE) 1 % injection (CANCELED) As needed, Starting on Sat09/27/25 at 1124, Intraprocedure 1124 (Given - Provid er: Ronaldo Jordan MD) ondansetron (PF) (ZOFRAN) injection 4 mg 4 mg, intravenous, Once as needed, nausea, vomiting, Starting on Sat09/27/25 at 1208, For 1 dose, Phase II/On Unit, Give as FIRST antiemetic in order set Infuse over 2 minutes. oxyCODONE (ROXICODONE) immediate release tablet 5 mg 5 mg, oral, Once as needed, moderate pain, Starting on Sat09/27/25 at 1208, For 1 dose, Phase II/On Unit documented in this encounter Orders Medications Ordered That Robles ht Not Have Been Administered Count Last Ordered Date First Ordered Date acetaminophen (TYLENOL) tablet 1,000 mg 1 1 11/28/2024 diphenhydrAMINE (BENADRYL) i njection 12.5 mg 1 09/27/2025 haloperidol lactate (HALDOL) injection 1 mg 1 09/27/2025 lactated Ringer's infusion 1 09/27/2025 lidocaine (XYLOCAINE) 1 % injection 1 09/27 ondansetron (PF) (ZOFRAN) injection 4 mg 1 09/27/2025 oxyCODONE (ROXICODONE) immed iate release tablet 5 mg 1 09/27/2025 Discharge Count Last Ordered Date First Orde red Date DISCHARGE PATIENT 1 09/27/2025 documented in this encounter Additional Health Concerns Active Problems Noted Date Diagnosed Date Autogenerated Problem 09/28/2025 Assessment Noted Time PHQ-9 Depression Total Score: 0 07/05/20 25 11:54 PM EDT documented as of this encounter Care Teams Special Service Officer Relationship Specialty Start Date End Date Lexus Sanders MD [address] [place] [phone] PCP - General 02/05/01 documented as of this encounter
--- OUTSIDE RECORDS SUMMARY | 2025-09-27 11:06 | XMS_ITS | Encounter Summary ---
Author Organization [facility] Address [address] [place] [address] Care Team Providers Care Computer Science Intern Name Role Phone Lexus Sanders MD Primary Care Provider [phone] Reason for Visit * Auth/Cert (Routine) Specialty Diagnoses / Procedures Referred By Contac t Referred To Contact Diagnoses Finger mass, left LEFT FINGER MASS Procedures [place] EXC TMR/SOFT TISSUE/VASCULAR MALFORMATION HAND/FINGER SUBFASCIAL < 1.5CM EXCISION LESION HAND, LEFT RING FINGER Ronaldo Jordan MD [address] [place] [address] Phone: tel: fax: [facility] Main OR [address] [place] [address] Phone: tel: Referral ID Status Reason Start Date Expiration Date Visits Re quested Visits Authorized [id number] 1 1 Encounter Details Date Type Department Care Team (Late st Contact Info) Description 09/27/2025 11:06 AM EST Anesthesia Event [facility] Main OR [address] [place] [address] Colton Teague MD [address] [place] [address] [address] [place] [address] Anesthesia Record Procedure Summary Procedure Name Responsible Anesthesiologist Anesthesia Start Time Anesthesia Stop Time EXCISION LESION HAND, LEFT RING FINGER (Left: Hand) Colton Teague MD 09/27/25 1106 09/27/25 1210 Events Date Time Event Comment 09/27/2025 1101 1106 In Room 1106 An Start 1106 An Start Data The patient wa s reevaluated immediately before moderate or deep sedation use and before anesthesia induction. 1109 Anesthesia Ready 1121 Proc Start 1123 An Tourn Inflated @250mmgh P SR 1133 An Tourn Deflated 1140 Proc Fin 1144 an stop data 1145 Out of Room 1210 Handoff to RN I completed my handoff to the receiving nurse during which we: 1. Identified the patient 2. Identified the responsible provider 3. Reviewed the pertinent medical history 4. Discussed the surgical course 5. Reviewed intra-op anesthesia management and issues during anesthesia 6. Set expectations for post-procedure period 7. Allowed opportunity for questions and acknowledgement of understanding. 1210 An Stop Meds Name Total fentaNYL 0.05 mg/mL 50 mcg midazolam 1 mg/mL 2 mg ondansetron 2 mg/mL 4 mg propofol (DIPRIVAN) injection 10 mg/mL 1 00 mg propofol (DIPRIVAN) infusion 10 mg/mL 50 5.34 mg lidocaine PF (XYLOCAINE-MPF) local injec tion 2% 20 mg lactated Ringer's infusion 500 mL * Agents Name O2 * Blood No blood administrations on file. Lines, Drains, and Airways Type Details Placement Removal Wound Incision; 09/27/25; 1123; Finger D4, Ring; Anterior, Left 09/27/25 1123 by Nat Riley RN Peripheral IV Placement Date: 09/07 12/01; Placement Time: 1107; Catheter Size: 20 G; Orientation: Posterior, Right; Location: Hand; Site Prep: Chlorhexidine; Insertion Attempts: 1; Patient Tolerance: Tolerated well; Removal Date: 09/27/25; Removal Time: 1252; Removal Reason: Per order 09/27/25 1107 by Ariana Stearns RN 09/27/25 1252 by Ana Nix RN documented in this encounter Social History Tobacco Use Types Packs/Day Years [...] for your loved ones. For example, child and adolescent psychiatrist or elderly care for an older adult? [...] PM EST documented as of this encounter Progress Notes * Jose Puag CRNA - 09/27/2025 12:10 PM EST Patient: Dayne Bundy Procedure Summary Date: 09/27/25 Room / Location: [facility] OR [facility] OR Anesthesia Start: 1106 Anesthesia Stop: 1210 Procedure: EXCISION LESION HAND, LEFT RING FINGER (Left: Hand) Diagnosis: Finger mass, left (LEFT FINGER MASS) Surgeons: Ronaldo Jordan MD Responsible Provider: Colton Teague MD Anesthesia Type: MAC ASA Status: 2 Anesthesia Plan: MAC Last Vitals: Vitals Value Taken Time BP 113/56 09/27/25 12:03 Temp 36.1 ??C (97 ??F) 09/27/25 11:49 Pulse 71 09/27/25 12:03 Resp 16 09/27/25 12:03 SpO2 98 % 09/27/25 12:03 Pain Score: 0 - No pain Anesthesia Post Evaluation Patient location during evaluation: PACU Patient participation: complete - patient participated Level of consciousness: awake and alert Pain score: 0 Pain management: adequate Airway patency: patent Anesthetic complications: no Cardiovascular status: acceptable Respiratory status: acceptable Hydration status: acceptable Nausea: No Vomiting: No There were no known notable events for this encounter. * Colton Teague MD - 09/25/2025 1:02 PM EST 45 y.o. male scheduled for Finger mass, left [EXCISION LESION HAND, LEFT RING FINGER (Left: Hand)] Ht Readings from Last 1 Encounters: 07/27/25 1.829 m (72 ) Wt Readings from Last 1 Encounters: 07/27/25 87.8 kg (193 lb 9.6 oz) Body mass index is 26.45 kg/m??. Medical History[1] Surgical History[2] Anesthesia complications Denies Allergies[3] Prior to Admission medications Medication Sig Start Date End Date Taking? Authorizing Provider cetirizine (ZyrTEC) 10 mg tablet 02/12/24 Historical Provider, famotidine (PEPCID) 20 mg tablet Take by mouth. Historical Provider, I have personally reviewed all the patient's medications with them prior to anesthesia. Current In-hospital Medications MEDSSCHEDULED[4] MEDSCONTINUOUS[5] MEDSPRN[6] Social History[7] Is the patient a current smoker (e.g. cigarette, cigar, pip, e-cigarette, or mariajuana)? Yes [] No[] Patient previously instructed to abstain from smoking on the day of procedure? Yes [] No[] Patient smoked on the day of procedure? Yes [] No[] ASPIRE smoking VBR: [] Not interested in quitting [] Interested in quitting- referred to treatment [] Interested in quitting - treatment provided Visit Vitals Ht 1.829 m (72 ) Wt 88.5 kg (195 lb) BMI 26.45 kg/m?? Smoking Status Never BSA 2.11 m?? LABS: Lab Results Component Value Date WBC 8.1 07/28/2025 HGB 14.3 07/28/2025 HCT 43.0 07/28/2025 MCV 91.9 07/28/2025 PLT 545 (H) 07/28/2025 Lab Results Component Value Date GLUCOSE 87 06/09/2025 CALCIUM 9.2 06/09/2025 NA 138 06/09/2025 K 4.0 06/09/2025 CO2 27 06/09/2025 CL 106 06/09/2025 BUN 7 06/09/2025 CREATININE 0.85 06/09/2025 No results found for: INR , PROTIME No results found for: PTT Relevant Problems GI (+) Chronic hepatitis B (CMS/HCC V24, CMS/HCC V28) (+) Hepatitis A Other (+) Lipoma of torso (+) MGUS (monoclonal gammopathy of unknown significance) (+) Patellofemoral arthritis of right knee Clinical information reviewed: Tobacco Allergies Meds Med Hx Surg Hx Fam Hx Soc Hx Anesthesia Plan ASA 2 Anesthesia Plan: MAC Anesthesia Considerations MAC Anesthesia Risks Discussed allergic reaction, dental injury, nausea, serious complications, pain, sore throat and corneal abrasion Plan Factors Patient is not a current smoker Smoking cessation education has not been provided Induction method: intravenous Postoperative administration of opioids is intended. Anesthetic plan and risks discussed with patient. Anesthesia Plan discussed with SENIOR PROJECT CONTROLS SPECIALIST. Anesthesia Evaluation No history of anesthetic complications Airway Mallampati: II Thyromental distance: >3 FB Neck ROM: fullnot intubatedno noted risk Dental - normal exam Pulmonary breath sounds clear to auscultation (-) pneumonia, COPD, asthma, recent URI Cardiovascular (-) pacemaker, hypertension, past CO, CAD, CABG/stent, dysrhythmias, angina, CHF Rhythm: regular Rate: normal Neuro/Psych (-) seizures, TIA, CVA Mental Status: alert and oriented GI/Hepatic/Renal (+) GERD, hepatitis B, liver disease (-) renal disease Endo/Other (-) diabetes mellitus, hypothyroidism, hyperthyroidism Abdominal Abdomen: soft. Bowel sounds: normal. PONV RISK SCORE: 1 Vitals: 08/26/25 0900 Weight: 88.5 kg (195 lb) Height: 1.829 m (72 ) SpO2 Readings from Last 1 Encounters: 07/27/25 97% WBC Date Value Ref Range Status 07/28/2025 8.1 4.8 - 10.8 K/mcL Final RBC Date Value Ref Range Status 07/28/2025 4.70 4.50 - 5.50 M/mcL Final Hemoglobin Date Value Ref Range Status 07/28/2025 14.3 13.5 - 17.5 g/dL Final Hematocrit Date Value Ref Range Status 07/28/2025 43.0 42.0 - 54.0 % Final Platelets Date Value Ref Range Status 07/28/2025 545 (H) 130 - 400 K/mcL Final MCV Date Value Ref Range Status 07/28/2025 91.9 79.0 - 98.0 FL Final Allergies[8] STOP BANG: No data recorded NPO Status: No data recorded [1] Past Medical History: Diagnosis Date ??? Anemia ??? Arthritis ??? Esophagitis 05/20/2009 ??? GERD (gastroesophageal reflux disease) ??? Hepatitis A 09/15/2012 ??? Hepatitis B DX:Hepatitis B ??? MGUS (monoclonal gammopathy of unknown significance) 03/30/2024 [2] Past Surgical History: Procedure Laterality Date ??? COLONOSCOPY 08/20/2002 : negative; no polyps ??? COLONOSCOPY 07/28/2020 hemorrhoids, no polyp ??? ESOPHAGOGASTRODUODENOSCOPY 02/14/2009 Nl esophagus-bx:Nl, Mild antral gastritis-bx:mild reactive gastropathy, Nl duodenum ??? HERNIA REPAIR ??? KNEE ARTHROSCOPY Right [place] [facility] ??? MENISCECTOMY Right ??? OTHER SURGICAL HISTORY lipoma removal ??? UPPER GASTROINTESTINAL ENDOSCOPY [3] Allergies Allergen Reactions ??? Apple nausea ??? Banana nausea ??? [place] nausea [4] [5] [6] [7] Social History Tobacco Use ??? Smoking status: Never ??? Smokeless tobacco: Never Substance Use Topics ??? Alcohol use: No ??? Drug use: No [8] Allergies Allergen Reactions ??? Apple nausea ??? Banana nausea ??? [place] nausea documented in this encounter Plan of Treatment Upcoming Encounters Date Type Department Care Team (Late st Contact Info) Description 10/12/2025 1:15 PM EST Office Visit Orthopedic Surgery - [place] 250 175 [facility] 250 [place] [phone] Haily Gillette PA [address] [place] [address] 10/13/2025 3:30 PM EST Office Visit [facility] Hematology Oncology [address] [place] [phone] Ryland Dominguez MD [address] [place] [phone] 03/01/2026 2:40 PM EDT Office Visit Gastroenterology - [address] [place] [address] 299 [facility] [address] [place] [address] Milla Crowe PA 299 [facility] [address] [place] [address] 08/01/2026 3:30 PM EDT Office Visit Adult Medicine [facility] [address] [place], [place] [phone] Philomena Stubbs PA [address] [place], [place] documented as of this encounter Goals Goal Patient Goal Type Associated Problems Recent Progress Patient-Stated? Author Autogenerat ed Goal Care Plan Autogenerated Problem No Ronaldo Jordan MD documented as of this encounter Visit Diagnoses Not on filedocumented in this encounter Administered Medications Inactive Administered Medications - up to 3 most recent administrations Medication Order MAR Action Action Date Dose Rate Site fentaNYL (PF) (SUBLIMAZE) injection intravenous, As needed, Starting on Sat09/27/25 at 1109, Anesthesia Intraprocedure Given 09/27/2025 11:12 AM EST 25 mcg Given 09/27/2025 11:09 AM EST 25 mcg lactated Ringer's infusion intravenous, Continuous PRN, Starting on Sat09/27/25 at 1108, Anesthesia Intraprocedure New Bag 09/27/2025 11:08 AM EST lidocaine (PF) (XYLOCAINE-MPF) 2 % injection injection, As needed, Starting on Sat09/27/25 at 1109, Anesthesia Intraprocedure Given 09/27/2025 11:09 AM EST 20 mg midazolam (VERSED) injection intravenous, As needed, Starting on Sat09/27/25 at 1107, Anesthesia Intraprocedure Given 09/27/2025 11:07 AM EST 2 mg ondansetron (PF) (ZOFRAN) injection intravenous, As needed, Starting on Sat09/27/25 at 1122, Anesthesia Intraprocedure Given 09/27/2025 11:22 AM EST 4 mg propofoL (DIPRIVAN) infusion 10 mg/mL intravenous, Continuous PRN, Starting on Sat09/27/25 at 1109, Anesthesia Intraprocedure Rate/Dose Change 09/27/2025 11:33 AM EST 70 mcg/kg/min 37.17 mL/hr New Bag 09/27/2025 11:09 AM EST 130 mcg/kg/min 69.03 mL /hr propofoL (DIPRIVAN) injection intravenous, As needed, Starting on Sat09/27/25 at 1109, Anesthesia Intraprocedure Given 09/27/2025 11:09 AM EST 100 mg documented in this encounter Additional Health Concerns Active Problems Noted Date Diagnosed Date Autogenerated Problem 09/28/2025 Assessment Noted Time PHQ-9 Depression Total Score: 0 07/05/20 11:54 PM EDT documented as of this encounter Care Teams Computer Science Intern Relationship Specialty Start Date End Date Lexus Sanders MD [address] [place] [address] PCP - General 02/05/01 documented as of this encounter
--- OUTSIDE RECORDS SUMMARY | 2025-09-27 11:15 | XMS_ITS | Encounter Summary ---
Author Organization [facility] Address [address] [place] [address] Care Team Providers Care Motorcycle Riding Instructor Name Role Phone Lexus Sanders MD Primary Care Provider [phone] Reason for Visit * Auth/Cert (Routine) Specialty Diagnoses / Procedures Referred By Harmeet t Referred To Contact Diagnoses Finger mass, left LEFT FINGER MASS Procedures [place] EXC TMR/SOFT TISSUE/VASCULAR MALFORMATION HAND/FINGER SUBFASCIAL < 1.5CM EXCISION LESION HAND, LEFT RING FINGER Ronaldo Jordan MD [address] [place] [address] Phone: tel: fax: [facility] OR [address] [place] [phone] Phone: tel: Referral ID Status Reason Start Date Expiration Date Visits Re quested Visits Authorized [id number] 1 1 Encounter Details Date Type Department Care Team (Late st Contact Info) Description 09/27/2025 11:15 AM EST - 09/27/2025 12:30 PM EST Surgery [facility] Main OR [address] [place] [address] Ronaldo Jordan MD [address] [place] [address] EXCISION LESION HAND, LEFT RING FINGER [74799 (CPT )] Surgery Details Date/Time Status Location OR Service Patient Class Case Cl ass Case Type Trauma Case? 09/27/2025 11:15 AM Posted [facility] - Elective Panel 1 Procedure LRB Anes Op Region Wound Class Comments EXCISION LESION HAND, LEFT RING FINGER Left Monitor Anesthesia Care Hand Class I/ Clean okay for gloria Surgeon Surgeon Role Service Panel Ronaldo Jordan MD Primary Orthopedics 1 Special Needs Spoke with pt to offer a DOS of 09/07 or 09/14/2025 @ [facility]. Pt want at [facility] for 09/27/2025. AM -08/17 documented in this encounter Social History Tobacco [...] for your loved ones. For example, child psychologist or elderly care for an older adult? [...] be seen. Follow up: 10/12/24 Dr. Jordan [address] [place] [id number] * Attachments The following attachments cannot be sent through Care Everywhere. * Sedation: General Info (Irish) documented in this encounter Medications at Time [...] to 10 days. 30 tablet 09/27/2025 6 ibuprofen (ADVIL,MOTRIN) 600 mg tablet Take 1 [...] Diabetes mellitus type 2, controlled, with complications (CMS/HCC V24, CMS/HCC V28), Essential hypertension, Historical Medical [...] not use drugs. Allergies: Apple, Banana, and Lane Home Medications: Prescriptions Prior to Admission[1] Review [...] FINGER (L) OPERATIVE NOTE Date: 09/27/2025 Location: [facility] OR Name: Dayne Bundy : 1980 Preoperative Diagnosis Pre-Op Diagnosis Codes: * Finger mass, left [R22.32] Post-op Diagnosis * Finger mass, left [R22.32] Procedure(s) and postoperative diagnosis: Excision of ganglion cyst of flexor tendon sheath [address] Surgeon(s) & Canal Boat Operator(s) Primary: Ronaldo Jordan MD Staff: Hat Finisher: Nat Riley RN Scrub Person: Jes Gillette physician technical administrative assistant was required for assistance. They assisted with patient positioning, sterile prep, tissue retraction and wound closure. No other qualified technical administrative assistant or resident was available Anesthesia: No [...] RN - 09/27/2025 11:09 AM EST Urmila [phone], contact/ride home documented in this encounter Plan of Treatment Upcoming Encounters Date Type Department Care Team (Late st Contact Info) Description 10/12/2025 1:15 PM EST Office Visit Orthopedic Surgery [facility] 250 175 [facility] 250 [place] [phone] Haily Gillette PA [address] [place] [address] 10/13/2025 3:30 PM EST Office Visit [facility] Hematology Oncology [address] [place] [phone] Ryland Dominguez MD [address] [place] [phone] 03/01/2026 2:40 PM EDT Office Visit Gastroenterology - 299 [facility] 299 [facility] [address] [place] [address] Milla Crowe PA 299 [facility] [address] [place] [address] 08/01/2026 3:30 PM EDT Office Visit [address] [phone] Philomena Stubbs PA [address] [place], [place] documented as of this encounter Goals Goal Patient Goal Type Associated Problems Recent Progress Patient-Stated? Author Autogenerat ed Goal Care Plan Autogenerated Problem No Ronaldo Jordan MD documented as of this encounter Procedures Procedure Name Priority Date/Time Associated Diagnosis Comments TISSUE EXAM Routine 09/27/2025 11:28 AM EST Finger mass, left [place] EXC TMR/SOFT TISSUE/VASCULAR MALFORMATION HAND/FINGER SUBFASCIAL < 1.5CM 09/27/2025 11:06 AM EST Finger mass, left Special Needs Spoke with pt to offer a DOS of 09/07 or 09/14/2025 @ [facility]. Pt want at [facility] for 09/27/2025. AM -08/17 documented in this encounter Results * Tissue exam (09/27/2025 11:28 AM EST) Final Diagnosis Soft tissue, left ring finger-excision: -GANGLION CYST 09/28/2025 11:02 AM EST [facility] at 1102 EST Gross Description A. Hand, Digit Left, Ring Finger Cyst: Labeled finger L, ring fing . Received in formalin is an irregular pandey-white rubbery fibromembranous tissue fragment, measuring 1.1 x 0.5 x 0.3 cm, which is submitted in toto in one cassette, one piece. HAZEL 09/28/2025 11:02 AM [facility] Disclaimer Unless otherwise specified, all tissue is 10% NB formalin fixed and paraffin embedded. 09/28/2025 11:02 AM [facility] Tissue Structure of digit of left hand / Unknown 09/27/2025 11:28 AM EST 09/27/2025 12:39 PM EST Ronaldo Jordan MD LAB PATHOLOGY ORDERABLES Final R esult [facility] [address] [place] [address], documented in this encounter Visit Diagnoses Diagnosis Finger mass, left- Primary Localized superficial swelling, mass, or lump Finger mass, left Localized superficial swelling, mass, [...] Starting on Sat09/27/25 at 1230, Recovery (only) lidocaine (XYLOCAINE) 1 % injection As needed, Starting on Sat09/27/25 at 1124, Intraprocedure Given 09/27/2025 11:24 AM EST 10 mL ondansetron (PF) (ZOFRAN) injection 4 mg 4 [...] Medication Sig Discontinue Reason Start Date End meloxicam (MOBIC) 15 mg tablet TAKE 1 [...] 1 09/27/2025 lactated Ringer's infusion 1 09/27/2025 ondansetron (PF) (ZOFRAN) injection 4 mg 1 [...] documented as of this encounter Care Teams Motorcycle Riding Instructor Relationship Specialty Start Date End Date Lexus Sanders MD [address] [place] [address] PCP - General 02/05/01 documented as of this encounter
--- NOTE | ~2025-09-29 | MR_ITS ---
EXAMINATION: MR KNEE WITHOUT IV CONTRAST RIGHT HISTORY: M25.461 - Effusion, right knee COMPARISON: Correlation is made with plain films of the right knee dated 05/02/2025. TECHNIQUE: Coronal T1 and fat-suppressed proton density, sagittal proton density and fat-suppressed proton density, and axial fat suppressed T2 weighted MR images of the right knee were obtained. FINDINGS: Bone marrow: There are small foci of marrow edema involving the posterior aspect of the lateral femoral condyle and the anterior aspect of the lateral tibial plateau. Joint effusion: There is a large suprapatellar joint effusion. Verduzco's cyst: There is a large Verduzco's cyst containing debris. Articular cartilage: There is a large cartilage defect involving the lateral femoral condyle. There is moderate thinning and irregularity of the patellar cartilage. Muscles/soft tissues: The visualized muscles demonstrate normal signal intensity. Anterior cruciate ligament: Intact Posterior cruciate ligament: Intact Medial collateral ligament: Intact Lateral collateral ligament: Intact Medial meniscus: Intact Lateral meniscus: The posterior horn and posterior body are diminutive in size and irregular in appearance which may be postoperative in nature. It is difficult to exclude a superimposed tear. Flexor mechanism: The popliteus, gastrocnemius, and hamstring tendons are intact. Quadriceps tendon: Intact Patellar tendon: Intact Patellar retinacula: Intact MR/MR knee RT wo con IMPRESSION: 1. Small foci of marrow edema involving the posterior aspect of the lateral femoral condyle and the anterior aspect of the lateral tibial. 2. Large suprapatellar joint effusion and large Verduzco's cyst. 3. Large cartilage defect involving the lateral femoral condyle. Moderate thinning and irregularity of the patellar cartilage. 4. Probable postsurgical changes involving the posterior horn and posterior body of the lateral meniscus. It is difficult to exclude a superimposed tear. Electronically signed by: Narayan Jorgensen MD 10/01/2025 07:11 AM [facility]
--- OUTSIDE RECORDS SUMMARY | 2025-09-29 15:33 | XMS_ITS | Encounter Summary ---
Author Organization [facility] [place] [address] Care Team Providers Care Depositing Machine Operator Name Role Phone Lexus Sanders MD Primary Care Provider [phone] Encounter Details Date Type Department Care Team (Late st Contact Info) Description 07/28/2025 Results Follow-Up Adult Medicine [facility] [address] [place], [place] [phone] Philomena Stubbs PA [address] [place], [place] Social History Tobacco Use Types Packs/Day Years [...] care for your loved ones. For example, director of early childhood education or elderly care for an older adult? [...] PM EST documented as of this encounter Plan of Treatment Upcoming Encounters Date Type Department Care Team (Late st Contact Info) Description 10/12/2025 1:15 PM EST Office Visit Orthopedic Surgery - [place] [address] [place] [phone] Haily Gillette PA [address] [place] [address] 10/13/2025 3:30 PM EST Office Visit [facility] Hematology Oncology [address] [place] [phone] Ryland Dominguez MD [address] [place] [phone] 03/01/2026 2:40 PM EDT Office Visit Gastroenterology - 299 [facility] [address] [phone] Milla Crowe PA [address] [address] 08/01/2026 3:30 PM EDT Office Visit Adult Medicine [facility] [address] [place], [place] [phone] Philomena Stubbs PA [address] [place], [place] documented as of this encounter Visit Diagnoses Not on filedocumented in this encounter Additional Health Concerns Assessment Noted Time PHQ-9 Depression Total Score: 0 07/05/20 25 11:54 PM EDT documented as of this encounter Care Teams Depositing Machine Operator Relationship Specialty Start Date End Date Lexus Sanders MD [address] [place] [address] PCP - General 02/05/01 documented as of this encounter
--- OUTSIDE RECORDS SUMMARY | 2025-09-29 15:33 | XMS_ITS | Clinical Summary ---
Author Organization [facility] Address [address] [place] [address] Phone Care Team Providers Care Service Desk Analyst Name Role Phone Lexus Sanders MD Primary Care Provider [phone] Allergies Active Allergy Reactions Criticality Noted Date Comments Apple 07/17/2024 nausea Banana 07/17/2024 nausea Archer 07/17/2024 nausea Medications cetirizine (ZyrTEC) 10 mg tablet 4 Active famotidine (PEPCID) 20 mg tablet Take by mouth. Active ibuprofen (ADVIL,MOTRIN) 600 mg tablet Take 1 tablet (600 mg total) by mouth every 6 (six) hours if needed for mild pain for up to 10 days. 30 tablet 5 10/07/19 26 Active acetaminophen (TYLENOL) 500 mg tablet Take 2 tablets (1,000 mg total) by mouth every 6 (six) hours if needed for mild pain for up to 10 days. 30 tablet 5 10/07/19 26 Active oxyCODONE (OXY-IR) 5 mg immediate release capsule Take 1 capsule (5 mg total) by mouth every 6 (six) hours if needed for severe pain. Max Daily Amount: 20 mg 5 capsule 5 Active oxyCODONE (OXY-IR) 5 mg immediate release capsule Take 1 capsule (5 mg total) by mouth every 6 (six) hours if needed for severe pain. Max Daily Amount: 20 mg 6 capsule 09/27/20 25 Discontinu ed(Stop Taking at Discharge) Active Problems Problem Noted Date Diagnosed Date Finger mass, left 08/06/2025 Patellofemoral arthritis of right knee Lipoma of torso 09/15/2024 Polyp of descending colon 07/17/2024 Chronic hepatitis B 03/30/2024 Elevated serum protein level 03/30/2024 MGUS [...] Encounters Date Type Department Care Team Description 09/27/2025 11:15 AM EST - 09/27/2025 12:30 PM EST Surgery [facility] OR [address] [place] [phone] Ronaldo Jordan MD EXCISION LESION HAND, LEFT RING FINGER [96654 (CPT )] 09/27/2025 11:06 AM EST Anesthesia Event [facility] OR [address] [place] [phone] Colton Teague MD 09/27/2025 10:30 AM EST - 09/27/2025 12:53 PM EST Hospital Encounter [facility] OR [address] [place] [phone] Ronaldo Jordan MD Finger mass, left Discharge Disposition: Home or Self Care 08/13/2025 Telephone Orthopedic Surgery [facility] [address] [phone] Ronaldo Jordan MD 08/06/2025 3:00 PM EDT Consult Orthopedic Surgery - [place] [address] [place] [address] [address] [place] [phone] Ronaldo Jordan MD Left hand pain (Primary Dx); Finger mass, left 07/28/2025 Results Follow-Up [facility] Medicine [address] [phone] Philomena Stubbs PA 07/27/2025 3:30 PM EDT Office Visit Adult Medicine [address] [phone] Philomena Stubbs PA Adult general medical examination (Primary Dx); Need for prophylactic vaccination and inoculation against influenza; MGUS (monoclonal gammopathy of unknown significance); Chronic hepatitis B (CMS/HCC V24, CMS/HCC V28); Polyp of descending colon, unspecified type; Family history of colon cancer; Mass of finger of left hand; Dermatitis from Last 3 Months Immunizations Immunization Administration Dates Next Due Hepatitis B (Vczvcbs-U-Oewuo , Recombivax HB-Adult) 19yo and older 07/13/2009,02/11/2008,01/14/2008 IPV Inactivated polio (Ipol) 6wks and older 03/23/2005 Influenza Quadravalent, MDCK , 0.5ml, preservative free (Flucelvax) 6mo and older 07/15/2023,07/13/2022,06/30/2020,11/05 Influenza Quadravalent, MDCK , 0.5ml, with preservative (Flucelvax) 6mo and older 09/23/2017 Influenza trivalent, 0.5mL, preservative free (Fluarix; FluLaval; Fluzone) ages 6mo and older (Afluria) 3 years and older 07/17/2024 Influenza trivalent, MDCK, 0 .5mL, preservative free (Flucelvax) 6mo and older 07/27/2025 Meningococcal Polysaccharide 03/13/2005 Tdap Tetanus diptheria acell ular pertussis (Boostrix; Adacel) 7yo and older 09/23/2017,01/14/2008 Surgical History Surgery Date Site/Laterality Comments ESOPHAGOGASTRODUODENOSCOPY 02/14/2009 Nl esophagus-bx:Nl, Mild antral gastritis-bx:mild reactive gastropathy, Nl duodenum COLONOSCOPY 08/20/2002 : negative; no polyps COLONOSCOPY 07/28/2020 hemorrhoids, no polyp OTHER SURGICAL HISTORY lipoma removal UPPER GASTROINTESTINAL ENDOSCOPY HERNIA REPAIR KNEE ARTHROSCOPY Right [facility] MENISCECTOMY Right Medical History Medical History Date Comments Hepatitis B DX:Hepatitis B Esophagitis 05/20/2009 Hepatitis A 09/15/2012 GERD (gastroesophageal reflux disease) Anemia MGUS (monoclonal gammopathy of unknown significa nce) 03/30/2024 Arthritis Family History Medical History Relation Name Comments Hypertension Father stroke Dementia Maternal Grandmother Diabetes Mother Colon cancer Sister 1 Other: brain tumor Sister 2 32 Relation Name Status Comments Brother Alive Father Maternal Grandfather Maternal Grandmother Mother Alive Paternal Grandfather Paternal Grandmother Sister 1 Sister 2 Social History Tobacco Use Types Packs/Day Years Used Date Smoking Tobacco: Never Smokeless Tobacco: Never Tobacco Cessation:Counseling Given: Not Answered Alcohol Use Standard Drinks/Week Comments No 0 [...] for your loved ones. For example, children's nursery assistant or elderly care for an older adult? [...] Orientation Straight 10/15/2024 12 :26 PM EST Last Filed Vital Signs Vital Sign Reading [...] Mass Index 26.45 08/26/2025 9:00 AM EST Plan of Treatment Upcoming Encounters Date Type Department Care Team (Late st Contact Info) Description 10/12/2025 1:15 PM EST Office Visit Orthopedic Surgery - [place] 250 [address] [facility] [address] [place] [phone] Haily Gillette PA [address] [place] [address] 10/13/2025 3:30 PM EST Office Visit [facility] Hematology Oncology [address] [place] [phone] Ryland Dominguez MD [address] [place] [phone] 03/01/2026 2:40 PM EDT Office Visit Gastroenterology - 299 [facility] 299 [facility] [address] [place] [phone] Milla Crowe PA [address] [facility] [address] [place] [address] 08/01/2026 3:30 PM EDT Office Visit Adult Medicine [facility] [address] [place] [phone] Philomena Stubbs PA [address] [place] [phone] Health Maintenance Due Date Last Done Comments Colorectal Cancer Screening: Colonoscopy 1982 Pneumococcal Vaccine: Pediatrics (0 to 5 Years) and At-Risk Patients (6 to 49 Years) (1 of 2 - PCV) 2001 IPV Vaccines (2 of 3 - Adult catch-up series) 04/20/2005 03/23/2005 HPV Vaccines (1 - 3-dose SCDM series) 2009 Hepatitis C Screening 09/09/2022 Social Influencers of Health Screening 07/05/2026 07/05/2025 DTaP,Tdap,and Td Vaccines (3 - Td or Tdap) 09/23/2027 09/23/2017, 01/14/2008 Cholesterol Screening (Lipid Panel) 07/28/2030 07/28/2025, 08/04/2024 RSV Immunization Adult Patients (1 - 1-dose 75+ series) 2057 Meningococcal ACWY Vaccine Aged Out 03/13/2005 N o longer eligible based on patient's age to complete this topic Hepatitis B Vaccines Completed 07/13/2009, 02/11/2008, 01/14/2008 COVID-19 Vaccine Discontinued 09/12/2021, , 11/10/2020 Depression Screening Completed 07/05/2025 Influenza Vaccine Completed 07/27/2025, , 07/15/2023, Additional history exists HIB Vaccines Aged Out No longer eligi ble based on patient's age to complete this topic HIV Screening Discontinued Hepatitis A Vaccines Aged Out No long er eligible based on patient's age to complete [...] on patient's age to complete this topic Goals Goal Patient Goal Type Associated Problems Recent Progress Patient-Stated? Author Autogenerat ed Goal Care Plan Autogenerated Problem No Ronaldo Jordan MD Procedures Procedure Name Priority Date/Time Associated Diagnosis Comments TISSUE EXAM Routine 09/27/2025 11:28 AM EST Finger mass, left MS EXC TMR/SOFT TISSUE/VASCULAR MALFORMATION HAND/FINGER SUBFASCIAL < 1.5CM 09/27/2025 11:06 AM EST Finger mass, left Special Needs Spoke with pt to offer a DOS of 09/07 or 09/14/2025 @ [facility]. Pt want at [facility] for 09/27/2025. AM -08/17 XR HAND 3+ VIEWS LEFT Routine 08/06/2025 3:02 PM EDT Left hand pain CBC WITH AUTO DIFFERENTIAL Routine 07/28/2025 7:58 AM EDT Adult general medical examination CBC AND DIFFERENTIAL Routine 07/28/2025 7:58 AM EDT Adult general medical examination LIPID PANEL WITH REFLEX TO DIRECT LDL Routine 07/28/2025 7:58 AM EDT Adult general medical examination from Last 3 Months Results * Tissue exam (09/27/2025 11:28 AM EST) Final Diagnosis Soft tissue, left ring finger-excision: -GANGLION CYST 09/28/2025 11:02 AM EST [facility] at 1102 EST Gross Description A. Hand, Digit Left, Ring Finger Cyst: Labeled finger L, ring fing . Received in formalin is an irregular pandey-white rubbery fibromembranous tissue fragment, measuring 1.1 x 0.5 x 0.3 cm, which is submitted in toto in one cassette, one piece. HAZEL 09/28/2025 11:02 AM [facility] Disclaimer Unless otherwise specified, all tissue is 10% NB formalin fixed and paraffin embedded. 09/28/2025 11:02 AM EST [facility] Tissue Structure of digit of left hand / Unknown 09/27/2025 11:28 AM EST 09/27/2025 12:39 PM EST us Ronaldo Jordan MD LAB PATHOLOGY ORDERABLES Final R esult [facility] [address] [place] [address], * XR Hand 3+ Views Left (08/06/2025 3:02 PM EDT) Anatomical Region Laterality Modality Upper Extremities, Hand Left Computed Radiography Narrative 08/06/2025 11:34 PM EDT Three-view x-rays of the left hand show no evidence of fracture or dislocation. There is ulnar negative variance. Normal carpal alignment. Soft tissue shadows appear normal. Impression: Normal radiographic study of the left hand without acute osseous abnormalities us Ronaldo Jordan MD IMG XR PROCEDURES Final Result * Lipid panel with reflex to direct LDL (07/28/2025 7:58 AM EDT) Cholesterol 150 0 - 200 mg/dL LAB CHEMISTRY METHOD 07/28/2025 10:47 AM T [facility] Triglycerides 44 0 - 150 mg/dL LAB CHEMISTRY METHOD 07/28/2025 10:47 AM EDT [facility] HDL 61 >=40 mg/dL LAB CHEMISTRY METHOD 07/28/2025 10:47 AM [facility] LDL Calculated 80 0 - 100 mg/dL LAB CHEMISTRY METHOD 07/28/2025 10:47 AM T [facility] Comment:Estimated LDL Calcul ated using equation: Total cholesterol - HDL cholesterol - (Triglycerides/5) VLDL Cholesterol Steven 8.8 mg/dL LAB CHEMISTRY METHOD 07/28/2025 10:47 AM T [facility] Non HDL Chol. (LDL+VLDL) 89 <145 mg/dL LAB CHEMISTRY METHOD 07/28/2025 10:47 AM [facility] Chol/HDL Ratio 2.5 0.0 - 4.4 LAB CHEMISTRY METHOD 07/28/2025 10:47 AM [facility] Blood Venous blood specimen / Unknown Venipuncture / Unknown 07/28/2025 7:58 AM EDT 07/28/2025 7:58 AM EDT us Philomena VILLEDA LAB BLOOD ORDERABLES Final Resul t [facility] [address] [place] [address], * (ABNORMAL) CBC auto differential (07/28/2025 7:58 AM EDT) WBC 8.1 4.8 - 10.8 K/mcL LAB HEMETOLOGY METHOD 07/28/2025 10:19 AM [facility] RBC 4.70 4.50 - 5.50 M/mcL LAB HEMETOLOGY METHOD 07/28/2025 10:19 AM [facility] Hemoglobin 14.3 13.5 - 17.5 g/dL LAB HEMETOLOGY METHOD 07/28/2025 10:19 AM [facility] Hematocrit 43.0 42.0 - 54.0 % LAB HEMETOLOGY METHOD 07/28/2025 10:19 AM [facility] MCV 91.9 79.0 - 98.0 FL LAB HEMETOLOGY METHOD 07/28/2025 10:19 AM [facility] MCH 30.6 27.0 - 32.0 pcg LAB HEMETOLOGY METHOD 07/28/2025 10:19 AM [facility] MCHC 33.3 32.0 - 37.0 g/dL LAB HEMETOLOGY METHOD 07/28/2025 10:19 AM [facility] RDW 14.5 11.0 - 15.0 % LAB HEMETOLOGY METHOD 07/28/2025 10:19 AM [facility] Platelets 545(H) 130 - 400 K/mcL LAB HEMETOLOGY METHOD 07/28/2025 10:19 AM [facility] MPV 10.7 7.0 - 11.0 FL LAB HEMETOLOGY METHOD 07/28/2025 10:19 AM [facility] NRBC 0.0 <1.0 % LAB HEMETOLOGY METHOD 07/28/2025 10:19 AM [facility] NRBC Absolute 0.00 <0.10 K/mcL LAB HEMETOLOGY METHOD 07/28/2025 10:19 AM [facility] Neutrophils Relative 59.3 % LAB HEMETOLOGY METHOD 07/28/2025 10:19 AM [facility] Lymphocytes Relative 26.8 % LAB HEMETOLOGY METHOD 07/28/2025 10:19 AM [facility] Monocytes Relative 11.1 % LAB HEMETOLOGY METHOD 07/28/2025 10:19 AM [facility] Eosinophils Relative 2.5 % LAB HEMETOLOGY METHOD 07/28/2025 10:19 AM [facility] Basophils Relative 0.2 % LAB HEMETOLOGY METHOD 07/28/2025 10:19 AM [facility] Immature Granulocytes Relative 0.1 % LAB HEMETOLOGY METHOD 07/28/2025 10:19 AM [facility] Neutrophils Absolute 4.81 1.50 - 7.00 K/mcL LAB HEMETOLOGY METHOD 07/28/2025 10:19 AM [facility] Lymphocytes Absolute 2.17 1.00 - 5.00 K/mcL LAB HEMETOLOGY METHOD 07/28/2025 10:19 AM [facility] Monocytes Absolute 0.90 0.20 - 1.00 K/mcL LAB HEMETOLOGY METHOD 07/28/2025 10:19 AM [facility] Eosinophils Absolute 0.20 0.00 - 0.50 K/mcL LAB HEMETOLOGY METHOD 07/28/2025 10:19 AM [facility] Basophils Absolute 0.02 0.00 - 0.20 K/mcL LAB HEMETOLOGY METHOD 07/28/2025 10:19 AM [facility] Immature Granulocytes Absolute 0.01 0.00 - 0.03 K/mcL LAB HEMETOLOGY METHOD 07/28/2025 10:19 AM [facility] Blood Venous blood specimen / Unknown Venipuncture / Unknown 07/28/2025 7:58 AM EDT 07/28/2025 7:58 AM EDT Philomena VILLEDA LAB BLOOD ORDERABLES Final Resul t [facility] [address] [place] [address], from Last 3 Months Additional Health Concerns Active Problems Noted Date Diagnosed Date Autogenerated Problem 09/28/2025 Insurance [facility] Advance Directives * Full Code - Default (Latest Code Status on File) Date Activated Date Inactivated Comments 09/27/2025 11:02 AM 09/27/2025 2:53 PM This is o rder is used when code status has not been discussed with the patient, or code status is otherwise unknown/unconfirmed To update the patient's code status, place a code status order. Do not modify or discontinue any currently active code status orders. Care Teams Service Desk Analyst Relationship Specialty Start Date End Date Lexus Sanders MD [address] [place] [phone] PCP - General 02/05/01
--- OUTSIDE RECORDS SUMMARY | 2025-09-29 15:33 | XMS_ITS | Clinical Summary ---
Author Organization [facility] Prior to 03/06/25 Address [address] [place] [address] Care Team Providers Care Assistant Fitness Manager Name Role Phone Lexus Sanders MD Primary Care Provider Allergies No known active allergies Medications Medication [...] age to complete this topic Care Teams Assistant Fitness Manager Relationship Specialty Start Date End Date Lexus Sanders MD PCP - General Internal Medicine 02/14/24
== END 2025-09-29 15:32 | disposition home or self-care (01) ==
LOC: HO.MRI 15:31
PROVIDERS: PCP Internal Medicine; Visit Provider Orthopaedic Surgery
DX: M25.461 Effusion, right knee (principal)
CPT/HCPCS: 73721